=== PATIENT | male | born 1950 | race Caucasian/White ===

== ENCOUNTER 2024-07-21 11:25 | Inpatient (IN) ==
--- NOTE | 2024-07-21 11:33 | ED Triage Note ---
Date of Service July 21, 2024 Provider in Triage Author: Yolanda Strauss History of Present Illness This patient was briefly evaluated while in triage. An abbreviated physical exam was performed. This patient is a 74-year-old Male who presents to the ED for evaluation sent by [facility] for new onset afib with RVR found in the office today having chest pain and elevated BP readings at home for the last week Physical Exam GENERAL: NAD CARDIOVASCULAR: IRR, HR 80s RESPIRATORY: CTA Initial orders for labs and / or imaging were placed and patient was placed in the waiting area until a bed is available. Please see further documentation for the full ED course.
--- NOTE | 2024-07-21 12:32 | Electrocardiogram Report ---
Test Reason : Blood Pressure : */* mmHG Vent. Rate : 104 BPM Atrial Rate : * BPM P-R Int : * ms QRS Dur : 94 ms QT Int : 340 ms P-R-T Axes : * 46 209 degrees QTcB Int : 447 ms Atrial fibrillation with rapid ventricular response Nonspecific T wave abnormality Abnormal ECG No previous ECGs available Confirmed by Kelvin Glass ([id number]) on 07/21/2024 12:31:37 PM Referred By: Confirmed By: Kelvin Glass
[2024-07-21 12:59] LABS: Basophils # (auto) 0.03 K/uL (0.00-0.20); Basophils % (auto) 0.5 %; Eosinophils % (auto) 1.5 %; Hematocrit (blood only) 45.7 % (42.0-52.0); Hemoglobin 15.7 g/dl (14.0-18.0); Immature Granulocytes # (auto) 0.01 K/uL (0.01-0.20); Immature Granulocytes % (auto) 0.2 %; Lymphocytes # (auto) 2.51 K/uL (1.20-3.40); Lymphocytes % (auto) 38.5 %; Mean Corpuscular Hemoglobin 29.8 pg (25.0-34.0); Mean Corpuscular Hgb Conc 34.4 g/dL (32.0-36.0); Mean Corpuscular Volume 86.9 fL (80.0-100.0); Mean Platelet Volume 11.3 fL (9.4-12.4); Monocytes # (auto) 0.72 K/uL (0.11-0.59); Neutrophils # (auto) 3.15 K/uL (1.40-6.50); Neutrophils % (auto) 48.3 %; Platelet Count 130 K/uL (130-400); RDW Coefficient of Variation 12.6 % (11.5-14.5); Red Blood Count 5.26 M/uL (4.70-6.10); White Blood Count 6.52 K/ul (4.8-10.8)
--- NOTE | 2024-07-21 13:10 | XRay Report ---
XR chest 1V not portable CLINICAL HISTORY: Atrial fibrillation. COMPARISON STUDY: Chest radiograph May 15, 2007. FINDINGS: There is no pneumothorax or pleural effusion. Lung volumes are mildly diminished. Mild righ t basilar opacity favors atelectasis. There is no consolidation. Moderate cardiomegaly is noted. Ther e is no for pulmonary edema. IMPRESSION: No acute cardiopulmonary findings. ACT 112: Negative or not required by law. Electronically signed by: Mateus Middleton M.D. 07/21/2024 1:07 PM
[2024-07-21 13:19] LABS: Albumin Globulin Ratio 1.6 (0.9-2); Albumin Level 4.1 gm/dl (3.4-5.0); BUN Creatinine Ratio 22.3 (10-20); Bilirubin,Total 0.3 mg/dl (0.2-1.0); Calcium 8.9 mg/dl (8.6-10.3); Creatinine Clr Calc Pharmacy 77.7 ml/min; Globulin 2.6 gm/dl (2.5-4.0); Total Protein 6.7 gm/dl (6.0-8.3)
[2024-07-21 13:20] LABS: Partial Thromboplastin Ratio 0.9; Partial Thromboplastin Time 25 Seconds (21-31)
[2024-07-21 13:25] LABS: Troponin I High Sensitivity 12.5 pg/ml (0-20)
[2024-07-21 13:34] LABS: Thyroid Stimulating Hormone 1.441 uIu/ml (0.300-4.500)
[2024-07-21] MEDS: OPTIRAY 320 125ml IV ONE (14:26)
--- NOTE | 2024-07-21 14:59 | CT Scan Report ---
CT angio chest PE protocol CLINICAL HISTORY: ro pe TECHNIQUE: Multidetector row helical CT of the chest was performed with angiographic protocol. Gates l and sagittal reformations were obtained. Coronal and sagittal MIPS were obtained from the axial [place] a set and were submitted for review. Automated dose lowering techniques and/or adjustment according to patient size were utilized for this exam. CT DOSE: 911.67 mGy.cm Comparison: None available at the time of this dictation. FINDINGS: Lungs and pleura: Atelectasis versus scarring is seen in the dependent portions of the lungs. Heart and pericardium: Heart size is normal. No pericardial effusion. Vessels: No evidence of pulmonary embolism. Mediastinum and cy: Unremarkable. Chest wall and lower neck: Unremarkable. Abdomen: Hepatic steatosis is noted. Bones: Mild degenerative changes are seen. IMPRESSION: No acute abnormality and in particular no evidence of pulmonary embolus. ACT 112: Negative or not required by law. Electronically signed by: Jan Raphael M.D. 07/21/2024 2:57 PM
[2024-07-21] MEDS: ASPIRIN 81 MG CHEW PO STA (15:24)
--- NOTE | 2024-07-21 15:31 | History & Physical Report ---
Date of Service July 21, 2024 Assessment & Plan (1) New onset atrial fibrillation: Plan: This is a 74 y/o male with CHERYL on CPAP and hx of BPH who was sent to the ED today by his PCP for new onset atrial fibrillation with RVR in the office. In the ED, pt was found to be in atrial fibrillation with rates in the 90s to low 100s. Initial troponin negative, TSH normal. CTA chest negative for PE. Pt and his deny that he has ever been diagnosed with atrial fibrillation or other heart issues previously. He had a negative stress ECHO in January 2016 with LVEF at that time being 55-59%. He was referred for admission for further work-up and management of newly diagnosed afib. - Admit to PCU - Start Lopressor 12.5 mg po BID - Check ECHO - Consult cardiology for additional recommendations - Start daily aspirin ([id number] score was 1 - will defer decision re: anticoagulation to cardiology but will hold on heparin for now) - Labs in the AM - CBC, BMP, Mg, lipid panel - Trend troponin in view of episodes of chest pain as outpatient - EKG in the AM (2) CHERYL on CPAP: Plan: Chronic, stable CPAP at HS ordered with home settings (3) BPH w urinary obs/LUTS: Plan: Chronic, stable Continue outpatient regimen Plan Pt seen and reviewed with collaborating physician, Dr. Hanson. Plan of care discussed and as outlined above. Code status: full code DVT prophylaxis: Lovenox Alaina Chacon PA-C Addendum: Spoke with cardiology. Will start heparin gtt. Change metoprolol tartrate to 25 mg Q6 hrs with holds. Alaina Chacon PA-C History of Present Illness Chief Complaint: chest pain, elevated BP Primary Care Provider: Alok Guzman DO This is a 74 y/o male with CHERYL on CPAP and hx of BPH who was sent to the ED today by his PCP for new onset atrial fibrillation. Pt's assists with the history. Four nights ago, pt woke up at 2 am and then again at 5 am with chest pain. At 5 am, he woke up his who checked his BP and found it to be elevated with systolic in the 150s, his pulse was also noted to be "high." Pt's takes atenolol so she gave the patient once of her pills and rechecked his BP two hours later but it was the same so she gave him another 1/2 tablet of atenolol. When she rechecked his BP again around noon that day, she reports that it had improved and pt was feeling better. The next night, he had similar symptoms, and she again gave him atenolol x 2 doses with improvement in his symptoms. At this point, she made pt an appointment to be seen at his PCP's office, which was today. When he was seen today, he had an EKG performed, which showed new onset of atrial fibrillation with rapid ventricular response so they referred the patient to the ED for further evaluation. Pt is currently asymptomatic. He denies similar episodes of chest pain before four nights ago. He denies palpitations, syncope, lightheadedness. He has chronic intermittent mild pedal edema that seems to fluctuate depending on time of day and when he's on his feet. He is compliant with his CPAP, using it nightly. He denies recent illness. Allergies Allergy/AdvReac Type Severity Reaction Status Date / Time No Known Allergies Allergy Mild Verified 02/06/16 06:31 Home Medications Medication Instructions Recorded Confirmed Type multivitamin (Daily Multi-Vitamin 1 tab PO DAILY 07/24/23 07/21/24 History tablet) tamsulosin 0.4 mg capsule 0.4 mg PO HS 07/24/23 07/21/24 History finasteride 5 mg tablet 5 mg PO DAILY #30 tabs 08/27/23 07/21/24 Rx Past Med/Surg History Problem List (Updated 07/21/24 @ 16:24 by Basilia Chacon PA-C) New onset atrial fibrillation CHERYL on CPAP Medical History History of vitreous hemorrhage History of nonmelanoma skin cancer BPH w urinary obs/LUTS Surgical History History of surgical amputation of finger History of cataract surgery Family History Father Cancer Social History Smoking Status: Never smoker Hx Alcohol Use: No Hx Substance Use: No Preferred Language: [place] Communication Ability: Effective Inter Com Installer Required: No Beliefs That Will Affect Care: Pent[employer]al Current Living Situation: Spouse Other Information That Helps Us Care for You: No Feels Safe at Home: Yes Safety Concerns: Feels Safe At This Time Assistive Devices: CPAP Review of Systems Review of Systems: All systems reviewed & are unremarkable except as noted in Subjective Physical Exam Physical Exam: General: awake, alert, NAD HEENT: no scleral icterus, moist oral mucosa Neck: supple, trachea midline Heart: irregularly irregular with rate in the 90s Lungs: CTA bilaterally on the anterior Abdomen: soft, obese, NT, +BS Extremities: no pitting edema, distal pulses intact and equal Skin: warm, dry, no jaundice Neurologic: Ox3, no confusion or dysarthria, moving all extremities, no focal deficits Results & Data Results & Data Vital Signs (Past 12 Hours) Vital Signs Temp Pulse Pulse Resp BP BP Pulse Ox 07/21/24 14:19 92 H 16 141/94 H 96 07/21/24 13:14 105 H 07/21/24 13:12 90 13 152/105 H 96 07/21/24 11:31 36.5 C 89 18 158/101 H 94 O2 Del Method 07/21/24 14:19 07/21/24 13:14 07/21/24 13:12 07/21/24 11:31 Room Air Laboratory Results Lab Results 07/21/24 Range/Units 11:55 WBC 6.52 (4.8-10.8) K/ul RBC 5.26 (4.70-6.10) M/uL Hgb 15.7 (14.0-18.0) g/dl Hct 45.7 (42.0-52.0) % MCV 86.9 (80.0-100.0) fL MCH 29.8 (25.0-34.0) pg MCHC 34.4 (32.0-36.0) g/dL RDW Std Deviation 40.0 (36.4-46.3) fL RDW Coeff of Dwayne 12.6 (11.5-14.5) % Plt Count 130 (130-400) K/uL MPV 11.3 (9.4-12.4) fL Immature Gran % (Auto) 0.2 % Neut % (Auto) 48.3 % Lymph % (Auto) 38.5 % [place] % (Auto) 11.0 % Eos % (Auto) 1.5 % Baso % (Auto) 0.5 % Neut # (Auto) 3.15 (1.40-6.50) K/uL Lymph # (Auto) 2.51 (1.20-3.40) K/uL [place] # (Auto) 0.72 H (0.11-0.59) K/uL Eos # (Auto) 0.10 (0.00-0.50) K/uL Baso # (Auto) 0.03 (0.00-0.20) K/uL Immature Gran # (Auto) 0.01 (0.01-0.20) K/uL PT 11.0 (9.0-12.0) Seconds INR 1.0 (0.9-1.1) APTT 25 (21-31) Seconds PTT Ratio 0.9 Sodium 140 (136-145) mmol/L Potassium 4.0 (3.5-5.1) mmol/L Chloride 108 H (98-107) mmol/L Carbon Dioxide 26 (21-32) mmol/L Anion Gap 6 (3-11) BUN 23 (6-23) mg/dl Creatinine 1.03 (0.6-1.4) mg/dl Est Cr Clr Drug Dosing 77.7 ml/min eGFR 77.18 BUN/Creatinine Ratio 22.3 H (10-20) Glucose 129 H (70-99(Fasting)) mg/dl Calcium 8.9 (8.6-10.3) mg/dl Magnesium 2.0 (1.7-2.4) mg/dl Total Bilirubin 0.3 (0.2-1.0) mg/dl AST 18 (13-39) U/L ALT 30 (7-52) U/L Alkaline Phosphatase 66 (34-104) U/L Troponin I High Sens 12.5 (0-20) pg/ml Total Protein 6.7 (6.0-8.3) gm/dl Albumin 4.1 (3.4-5.0) gm/dl Globulin 2.6 (2.5-4.0) gm/dl Albumin/Globulin Ratio 1.6 (0.9-2) TSH 1.441 (0.300-4.500) uIu/ml Diagnostic Findings Chest X-Ray 07/21/24 11:33 XR chest 1V not portable CLINICAL HISTORY: Atrial fibrillation. COMPARISON STUDY: Chest radiograph May 15, 2007. FINDINGS: There is no pneumothorax or pleural effusion. Lung volumes are mildly diminished. Mild right basilar opacity favors atelectasis. There is no consolida tion. Moderate cardiomegaly is noted. There is no for pulmonary edema. IMPRESSION: No acute cardiopulmonary findings. ACT 112: Negative or not required by law. Electronically signed by: Matues Middleton M.D. 07/21/2024 1:07 PM Chest CTA 07/21/24 13:18 CT angio chest PE protocol CLINICAL HISTORY: ro pe TECHNIQUE: Multidetector row helical CT of the chest was performed with angiographic protocol. Coronal and sagittal reformations were obtained. Coronal and sagittal MIPS were obtained from the axial data set and were submitted for review. Automated dose lowering techniques and/or adjustment according to patient size were utilized for this exam. CT DOSE: 911.67 mGy.cm Comparison: None available at the time of this dictation. FINDINGS: Lungs and pleura: Atelectasis versus scarring is seen in the dependent portions of the lungs. Heart and pericardium: Heart size is normal. No pericardial effusion. Vessels: No evidence of pulmonary embolism. Mediastinum and cy: Unremarkable. Chest wall and lower neck: Unremarkable. Abdomen: Hepatic steatosis is noted. Bones: Mild degenerative changes are seen. IMPRESSION: No acute abnormality and in particular no evidence of pulmonary embolus. ACT 112: Negative or not required by law. Electronically signed by: Jan Raphael M.D. 07/21/2024 2:57 PM Medications Administered Discontinued Medications Aspirin (Aspirin 81 Mg Chew) 324 mg PO NOW STA Stop: 07/21/24 15:15 Last Admin: 07/21/24 15:24 Dose: 324 mg Documented By: KHAI Ioversol (Optiray 320 125ml) 117 ml IV ONCE ONE Stop: 07/21/24 14:26 Last Admin: 07/21/24 14:26 Dose: 117 ml Documented By: ENRIQUE Supervising Physician Co-Signing Physician Notes Attending Addendum: Case reviewed with the advanced practitioner. I have personally performed a history and physical examination on the patient. I have reviewed the advanced practitioner's documentation on the date of service referenced in note, and I agree with, and take responsibility for the plan of care. please refer to her notes for full details patient seen and examined, records reviewed by myself as well on exam, patient seen resting in bed, comfortable patient at bedside translating Patient reports no chest pain, shortness of breath, palpitations, dizziness, nausea no other symptoms VS noted and reviewed oriented x 3, not in distress, speaks in sentences with no effort nor accessory muscle use normal rate, irregularly irregular rhythm, no murmurs clear breath sounds bilaterally non distended, soft, nontender no bipedal edema, erythema, warmth no neuro deficits all labs, imaging noted and reviewed ASSESSMENT AND PLAN> NEW ONSET ATRIAL FIBRILLATION Echocardiogram ordered Metoprolol 25 mg 4 times daily Heparin drip Cardiology service consulted other diagnoses and plan of care as per advanced practitioner's notes Campos Hanson MD
--- OUTSIDE RECORDS SUMMARY | 2024-07-21 16:09 | External Medical Summary | Summary of Care ---
Author Name Unknown Organization [facility] Address [address] [place] [address] Phone [phone] Care Team Providers Care Estimator Paperboard Boxes Name Role Phone MoraimaAlok jefferson Kayla HEALY Primary Care Provider [phone] Reason for Visit * Reason Comments NEW PATIENT Lesion in right ear canal * Evaluate & Treat - Unlimited Visits (Within 10 days (routine)) - Authorized Specialty Diagnoses / Procedures Referred By Rory velez Referred To Contact Otolaryngology Diagnoses Skin neoplasm Radha Raymond PA-C [address] [place] [address] Referral ID Status Reason Start Date Expiration Date Visits Requested Visits Authorized [id number] Authorized Specialty Services Required 03/24/[phone] Encounter Details Date Type Department Care Team (Late st Contact Info) Description 04/27/2024 9:00 AM EDT Office Visit Otolaryngology [facility] [address] [place] [address] Heath Painting PA-C [address] [address] Lesion of external ear canal, right* Allergies No known active allergiesdocumented as of this encounter (statuses as of 04/30/2024) Medications Medication Sig Dispensed Refills Start Date End Date Status CPAP every night at bedtime. Active Tamsulosin HCl 0.4 MG Oral Capsule (Flomax)Indications:R ecurrent gross hematuria,BPH with obstruction/lower urinary tract symptoms,Bladder diverticulum Take 1 Capsule by mouth at bedtime. 30 Capsule 2 06/26/2023 Active Finasteride 5 MG Oral Tablet (Proscar) Take 1 Tablet by mouth in the morning. 09/23/2023 Active Multivitamin Adults 50+ Oral Tablet Take by mouth. Activ e Zinc Picolinate Powder Use as directed. 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 0 to 44.9 in adult 10/30/2021 07/11/2023 Overview: Per Obesity protocol historical Dizziness 01/31/2013 12/26/2017 Nausea with vomiting 01/31/2013 018 Acute suppurative otitis media 01/31/2013 12/26/2017 Skin carcinoma 04/13/2009 06/21/2020 ADVANCE DIRECTIVE INFORMATION 04/30/2008 12/26/2017 Overview: No, Advance Directive brochure offered , patient declined. INFORMATION 06/27/2007 06/21/2020 Overview: nonmelanoma skin cancer scalp: leiomyosarcoma FAMILY HX MALIG.NEOPLASM PROSTATE father 11/21/2005 12/26/2017 Palpitations 07/10/2001 12/26/2017 documented as of this encounter (statuses as of 04/30/2024) Immunizations Name Administration Dates Next Due DTWP HIB - Dipth/Tet/Whole Cell Pert/HIB 007 Pneumococcal Polysaccharide PPV23 (Pneumovax) 04/13/2009 Seasonal Influenza Vac., MDV , IM, 0.5 mL (Fluzone) 04/14/2009,06/22/2006,07/11/2001 TDAP (age 10 and older)(Boostrix) 02/04/2013 documented as of this encounter Social History Tobacco Use Types Packs/Day Years Used Date Smoking Tobacco: Never Smokeless Tobacco: Never Tobacco Cessation:Counseling Given: Not Answered Alcohol Use Standard Drinks/Week Comments No 0 (1 standard drink = 0.6 oz pur e alcohol) PHQ-2 Answer Date Recorded PHQ Adult Total Score 0 03/13/2024 Hunger Vital Sign Answer Date Recorded Within the past 12 months, y ou worried that your food would run out before you got the money to buy more. Never true 03/13/20 24 Within the past 12 months, t he food you bought just didn't last and you didn't have money to get more. Never true 03/13/2024 Childcare Answer Date Recorded Do you feel overwhelmed with taking care of a child, family member or friend? No 03/13/2024 Does your family need help f inding childcare? (Household - for ages 0-17 years) Not on file 03/13/2024 Clothing Answer Date Recorded Have you been unable to get clothing when it was really needed? No 03/13/2024 Is your family able to get c lothes or diapers when needed? (Household - for ages 0-17 years) Not on file 03/13/2024 Personal Safety Answer Date Recorded Do you feel unsafe or have concerns for your saf ety? No 03/13/2024 Do you have concerns for you r family's safety? (Household - for ages 0-17 years) Not on file 03/13/2024 Utilities Answer Date Recorded Do you have trouble paying y our heating, water, or electric bill? No 03/13/2024 Is your family able to pay t he heat, water, or electric bill? (Household - for ages 0-17 years) Not on file 03/13/2024 Does your family have access to good internet? (Household - for ages 0-17 years) Not on file 03/13/2024 Employment Status Answer Date Recorded Are you unemployed or without regular income? No 03/13/2024 Does the household have a re gular source of income? (Household - for ages 0-17 years) Not on file 03/13/2024 Social Connections Answer Date Recorded How often do you feel lonely or isolated from th ose around you? Never 03/13/2024 Financial Resource Strain Answer Date R ecorded Do you have any trouble payi ng for your medications, or do you think you might in the future? No 03/13/2024 Does your family have troubl e paying for medicine? (Household - for ages 0-17 years) Not on file 03/13/2024 Transportation Needs Answer Date Record ed Do you have trouble getting a ride to medical visits or work? (Adult - for ages 18 years and over) Not on file 03/13/2024 Does your family have a hard time getting a ride to doctors visits? (Household - for ages 0-17 years) Not on file 03/13/2024 Has lack of transportation k ept you from medical appointments, meetings, work, or from getting things needed for daily living? Check all that apply. No 03/13/2024 Do you (or your family) have trouble finding or paying for a ride (transportation)? (Household - for ages 0-17 years) Not on file 03/13/2024 Housing Stability Answer Date Recorded Do you currently live in a s helter or have no steady place to sleep at night? No 03/13/2024 Do you think you are at risk of becoming homeless? (Adult - for ages 18 years and over) Not on file 03/13/2024 Does your family worry about paying for your home or becoming homeless? (Household - for ages 0-17 years) Not on file 0 03/13/2024 Are you homeless or worried that you might be in the future? No 03/13/2024 Are you (or your family) peña eless or worried that you might be in the future? (Household - for ages 0-17 years) Not on file Food Insecurity Answer Date Recorded Do you need food for this week? No 03/13/2024 Are you able to get enough f ood for your family? (Household - for ages 0-17 years) Not on file 03/13/2024 Does your family need food t his week? (Household - for ages 0-17 years) Not on file 03/13/2024 Do you always have enough fo od for your family? (Household - for ages 0-17 years) Not on file 03/13/2024 Sex and Gender Information Value Date Recorded Sex Assigned at Male 03/20/2021 1:00 PM EDT Gender Identity Male 03/20/2021 1:00 PM EDT Sexual Orientation Straight 03/20/2021 1: 00 PM EDT Job Start Date Occupation Industry Not on file Not on file Not on file documented as of this encounter Last Filed Vital Signs Vital Sign Reading Time Taken Comments Blood Pressure - - Pulse - - Temperature 36.1 C (97 F) 04/27/2024 8:48 AM EDT Respiratory Rate - - Oxygen Saturation - - Inhaled Oxygen Concentration - - Weight 108.8 kg (239 lb 12.8 oz) 04/27/2024 8:48 AM EDT Height 171 cm (5' 7.32") 04/27/2024 8:48 AM EDT Body Mass Index 37.2 04/27/2024 8:48 AM EDT documented in this encounter Progress Notes * Heath Painting PA-C - 04/27/2024 8:03 AM EDT 04/27/2024 Nursing Notes: Jan Montoya CMA 04/27/24 0923 Addendum Chief Complaint Patient presents with NEW PATIENT Lesion in right ear canal Edmond Bear is a 74 year old male who presents today with a lesion in his right ear canal that he states has been present since 1989. He states that it is not painful but he can feel it. He denies any ear bleeding or discharge. He denies any hearing loss. Patient and/or parent/guardian given pre-operative instructions for a excision of a lesion of his right auditory canal. Provided preop folder containing instruction regarding the surgical center. Advised on Bleeding risk of Anticoagulant or NSAID use. Educated on postoperative care. HISTORY OF PRESENT ILLNESS This 74 year old YO male is seen at the request of Alok Guzman DO for the evaluation of right ear canal lesion He is here today with his spouse. Noticed within the last few months right external ear canal lesion. However, he is unsure when the symptoms started. There is no drainage, bleeding. No pain at baseline, however if using Qtip sometimes there is discomfort. No injury or trauma. He does not feel it has grown in size since he noticed it. He is concerned his hearing may be affected in the future from this. He denies bilateral otalgia, bilateral otorrhea, bilateral aural pressure, and bilateral tinnitis. Denies hx of otologic surgeries. Denies hx of recurrent OM Remaining ear review of symptoms reveals: Head trauma: denied Dizziness: vertigo denied Noise exposure: no occupational exposure and no firearm exposure Problem List Patient Active Problem List Diagnosis Obstructive sleep apnea of adult CPAP (continuous positive airway pressure) dependence Preauricular sinus Hx of nonmelanoma skin cancer Morbid obesity due to excess calories (HCC) Body mass index (BMI) of 40.0 to 44.9 in adult (HCC) Past Medical History: Diagnosis Date CPAP (continuous positive airway pressure) dependence 08/12/2015 INFORMATION 06/27/2007 nonmelanoma skin cancer scalp: leiomyosarcoma Obstructive sleep apnea of adult 08/12/2015 Vitreous hemorrhage (HCC) 02/06/2016 PPV/EL for NCV OD-Dr. Tena Past Surgical History: Procedure Laterality Date COLONOSCOPY, DIAGNOSTIC (RECTUM) 06/13/2020 adenomatous polyp, repeat 5 yrs / COLONOSCOPY FLEXIBLE PROXIMAL DIAGNOSTIC performed by Joi Murphy MD at ENDOSCOPY [facility] COLONOSCOPY, GI REFERRAL OP 12/11/2005 normal repeat 2015, Dr Nolan, [facility] PARTIAL REMOVAL OF EYE FLUID Right 02/06/2016 PPV/EL for NCVH OD-Dr. Tena REMOVE CATARACT, INSERT LENS PROSTH Right 01/07/2018 right EXTRACAPSULAR CATARACT REMOVAL WITH INTRAOCULAR LENS performed by Andres Ty MD at OR [facility] REMOVE CATARACT, INSERT LENS PROSTH Left 01/16/2018 left EXTRACAPSULAR CATARACT REMOVAL WITH INTRAOCULAR LENS performed by Andres Ty MD at OR [facility] TENDON SHEATH INCISION, FINGER 2018 TENDON SHEATH INCISION, FINGER cut off end of thumb Medications Current Outpatient Medications Medication Sig Dispense Refill CPAP every night at bedtime. Tamsulosin HCl 0.4 MG Oral Capsule (Flomax) Take 1 Capsule by mouth at bedtime. 30 Capsule 2 Finasteride 5 MG Oral Tablet (Proscar) Take 1 Tablet by mouth in the morning. Multivitamin Adults 50+ Oral Tablet Take by mouth. Zinc Picolinate Powder Use as directed. No current facility-administered medications for this visit. Allergies Review of patient's allergies indicates: No Known Allergies Family History Family History Problem Relation Name Age of Onset No Past Hx Mother Cancer Father prostate cancer at age 77 No Past Hx Sister No Past Hx Sister No Past Hx Sister No Past Hx Sister No Past Hx Sister No Past Hx Brother No Past Hx Daughter No Past Hx Daughter No Past Hx Daughter No Past Hx Son No Past Hx Son No Past Hx Son Social History Social History Tobacco Use Smoking status: Never Smokeless tobacco: Never Substance Use Topics Alcohol use: No Vaping/E-Cigarette Use Vaping/E-Cigarette Use Never User Vaping/E-Cigarette Substances Vaping/E-Cigarette Devices REVIEW OF SYMPTOMS: Negative for constitutional, eyes, cardiac, pulmonary, hepatic, renal, digestive, hematologic, epileptic, syncopal, musculo-skeletal, mental health, integumentary, hypertensive, lipid, arthritic, diabetic, thyroid, or neurologic disorders (except as listed in the PMH and Problem List). PHYSICAL EXAMINATION: Vital Signs: Filed Vitals: 04/27/24 0848 Temp: 36.1 C (97 F) TempSrc: Tympanic Weight: 108.8 kg (239 lb 12.8 oz) Height: 1.71 m (5' 7.32") General: this is a healthy appearing male who appears his stated age. The patient is alert and appropriately verbally conversant without hoarseness. Face: The face was inspected and no cutaneous masses or lesions were visualized. There was no erythema or edema noted. Facial movement was symmetric without weakness. No skin lesions were detected. There was no sinus tenderness elicited. The parotid and submandibular glands were normal to palpation. Eyes: Examination of the eyes revealed no lesions. Pupils were equal, round, and reactive to light and accommodation. Extra-ocular muscle function was intact. No nystagmus was observed. Nose: Septum nonobstructing, turbinates normal, no masses, polyps, or mucopus. Oral Cavity: Examination of the oral cavity revealed no mass lesions nor infection. The palate was noted to be intact without evidence of clefting. The tongue exhibited normal mobility. Mucosa was moist without lesion. The lips were free of lesion. Gums were free of inflammation. Dentition: unremarkable Oropharynx: The oral pharynx was free of mass lesion or mucosal abnormality. The palate was noted to be without lesion. The uvula was normal appearing. The tonsils were unremarkable. Ears: Examination of the ears revealed that the auricles were normally formed with no lesions. The left external ear canal is within normal limits. The right external auditory canal just an entrance there is 3-4 mm flesh colored macule, no bleeding or trauma, non tender to palpation. The tympanic membranes were intact and freely mobile to pneumatoscopy without perforation or significant retraction pockets. Neck: Visualization and palpation of the neck revealed no mass lesions, no thyromegaly or thyroid masses. No skin lesions or inflammatory processes were detected. The cervical musculature was normal to palpation. Lymphatics (cervical): There were no palpable lymph nodes in the posterior triangle, submandibular triangle, jugulodigastric region, or central neck. Lungs: normal respiratory effort Heart: normal rate ASSESSMENT: 1. Lesion of external ear canal, right Plan: Discussed removal in OR vs. Observing-- pt would like to have this removed. Excision of R ear canal lesion planned for [facility] with Dr. Trammell Pt would like removal-- we discussed risks of bleeding, infection, scarring, re-growth. Pt verbalized understanding and agrees with plan. Questions/Concerns addressed. Heath Painting PA-C [facility] [place] [facility] [address] [place] [address] 04/27/2024 I spent a total of 30-39 minutes (exact time 31 mins) on the date of service in preparation, delivery, and documentation of the care provided to Edmond Bear excluding any time spent in the performance of separately billed services or time spent by another provider/QHP. The patient is being seen in follow up for the treatment of (H61.91) Lesion of external ear canal, right (primary encounter diagnosis) incident to the plan of care established by Dr. Puma Trammell. Type of Supervision: Shared-Does not meet incident-to STAFF NOTE I performed a history and physical examination of the patient, including specifically on history, ROS, on physical exam, and my impression and plan are found below I have discussed the patient's management with Heath Painting PA-C. Please refer to the physician catering assistant's note for the documented findings and plan of care. HPI: 74-year-old male with a right ear canal lesion. On exam Ears: There is a well-circumscribed pedunculated appearing lesion in the lateral EAC. Assessment: 74-year-old male with right EAC lesion. Plan: Suspect this is a benign verrucous lesion versus fibroma. That said would recommend excision to be certain. Discussed the risks including bleeding, infection. He expresses understanding signed informed consent. Puma Trammell DO, [facility] Data Control Clerk, Department of Otolaryngology-Head and Neck Surgery [place] 04/28/2024 12:24 PM documented in this encounter Nursing Notes * Jan Montoya CMA - 04/27/2024 8:47 AM EDT Chief Complaint Patient presents with NEW PATIENT Lesion in right ear canal Edmond Bear is a 74 year old male who presents today with a lesion in his right ear canal that he states has been present since 1989. He states that it is not painful but he can feel it. He denies any ear bleeding or discharge. He denies any hearing loss. Patient and/or parent/guardian given pre-operative instructions for a excision of a lesion of his right auditory canal. Provided preop folder containing instruction regarding the surgical center. Advised on Bleeding risk of Anticoagulant or NSAID use. Educated on postoperative care. documented in this encounter Miscellaneous Notes * Addendum Note - Amado Mayen PA-C - 04/30/2024 1:47 PM EDTAddended by: AMADO MAYEN on: 04/30/2024 01:47 PM Modules accepted: Orders documented in this encounter Plan of Treatment Upcoming Encounters Date Type Department Care Team (Late st Contact Info) Description 05/18/2024 11:00 AM EDT Office Visit Dermatology [facility] [place] [address] [place] [address] Param Nolasco MD [address] [place] [address] 05/19/2024 9:30 AM EDT Office Visit Urology, [facility] [address] [facility] [address] [place] [address] Rolan Gamboa MD [address] [place] [address] 07/03/2024 10:40 AM EST Office Visit Sleep Disorders Ctr [facility] [address] [facility] [address] [place] [phone] Laura Nunez, DO [address] [facility] [address] [address] 08/06/2024 11:30 AM EST Office Visit Otolaryngology [facility] [address] [facility] [address] [place] [address] Heath Painting PA-C [address] [place] [address] 10/09/2024 9:20 AM EDT Office Visit Family Practice [facility] [place] [address] [place] [address] Alok Guzman, DO [address] [place] [address] 03/17/2025 10:00 AM EDT Nurse Only Ancillary [facility] Marix[place] [address] [place] [address] Marixa Nurse Annual Wellness [facility] [address] [place] [address] Scheduled Procedures Name Priority Associated Diagnoses Date/Ti me EXCISION SOFT TISSUE LESION EXTERNAL AUDITORY Lesion of external ear canal, right COLONOSCOPY FLEXIBLE PROXIMA L DIAGNOSTIC Recall History of colon polyps Health Maintenance Due Date Last Done Comments Fecal Occult Blood Test 1997 Sigmoidoscopy 1997 Cologuard 01/07/2021 01/07/2018 Influenza Vaccine (FLU shot) (#1) 2024 04/14/2009, 06/22/2006, 07/11/2001 DTap/Tdap Vaccines (3 - Td or Tdap) 10/09/2024 02/04/2013, 03/20/2007 Postponed from 02/04/2023 (Not Indicated) Adult Wellness Visit 03/13/2025 03/13/2024, 12/21/2022, 03/21/2022, Additional history exists Depression Screening 03/13/2025 03/13/2024, 12/16/2014 (Discussed) Colonoscopy 06/13/2025 06/13/2020, 05/23, 12/11/2005 Colorectal Cancer Screening 06/13/2025 Lipid Panel 03/09/2027 03/09/2022, 02/20, 12/17/2014, Additional history exists Pneumococcal Vaccine: 65+ Years Discontinued 04/13/2009 RETIRED - COLONOSCOPY-EVERY 5 YRS AGES 18-100 Discontinued 06/13/2020, 06/13/2020, 12/11/2005 COVID-19 Vaccine Discontinued HPV (Gardasil) Vaccine Aged Out No lo nger eligible based on patient's age to complete this topic Hepatitis B Vaccine Aged Out No longe r eligible based on patient's age to complete this topic MENINGOCOCCAL (MENACTRA/MENVEO) Aged Out No longer eligible based on patient's age to complete this topic Zoster Vaccines Discontinued documented as of this encounter Medical Devices Implanted Type Area Collections Agent Device Identifier Shelf Expiration Date Model / Serial / Lot Lens Intraoc 22.5 - [id number] - [id number] Implanted:Qty: 1 on 01/07/2018 by Andres Ty MD at [facility] Right: Eye [employer] 08/21/2022 [id number] / [id number] / [id number] Lens Intraoc 22.5 - [id number] - [id number] Implanted:Qty: 1 on 01/16/2018 by Andres Ty MD at OR [facility] Left: Eye [employer] 06/20/2022 [id number] / [id number] / [id number] documented as of this encounter Visit Diagnoses Diagnosis Lesion of external ear canal, right- Primary documented in this encounter Advance Directives * Full Code (Latest Code Status on File) Date Activated Date Inactivated Comments 01/16/2018 11:43 AM 01/16/2018 6:14 PM This order reflects the patients wishes and were consensually agreed upon. * Full Code Date Activated Date Inactivated Comments 01/07/2018 11:40 AM 01/07/2018 5:31 PM This order reflects the patients wishes and were consensually agreed upon. Care Teams Estimator Paperboard Boxes Relationship Specialty Start Date End Date Alok Guzman DO [address] [place] [address] PCP - General Family Medicine 10/09/22 documented as of this encounter
--- OUTSIDE RECORDS SUMMARY | 2024-07-21 16:09 | External Medical Summary | Summary of Care ---
Author Name Unknown Organization [facility] Address [address] [place] [address] Phone [phone] Care Team Providers Care Sack Department Supervisor Name Role Phone Alok Guzmna DO Primary Care Provider [phone] Reason for Visit * Auth/Cert Specialty Diagnoses / Procedures Referred By Contac t Referred To Contact Diagnoses Lesion of external ear canal, right Lesion of external ear canal, right [H61.91] Procedures REMOVE EAR CANAL LESION(S) EAR & THROAT EXAM, GEN'L ANESTHESIA EXCISION SOFT TISSUE LESION EXTERNAL AUDITORY OTOLARYNGOLOGIC EXAMINATION UNDER GENERAL ANESTHESIA Puma Trammell DO [address] [place] [address] Phone: tel: fax: OR [facility], Operating Room [facility] [address] [place] [address] Phone: tel: Referral ID Status Reason Start Date Expiration Date Visits Re quested Visits Authorized [id number] Encounter Details Date Type Department Care Team (Latest Contact Info) Description 07/09/2024 11:21 AM EST - 07/09/2024 1:40 PM EST Hospital Encounter [facility] Operating [facility] [address] [place] [address] Puma Trammell DO [address] [place] [address] Discharge Disposition: Home - Self Care Allergies No known active allergiesdocumented as of this encounter (statuses as of 07/10/2024) Medications CPAP every night at bedtime. Active Multivitamin Adults 50+ Oral Tablet Take by mouth. Active Zinc Picolinate Powder Use as directed. Active Finasteride 5 MG Oral Tablet (Proscar) Take 1 Tablet by mouth in the morning. 90 Tablet 3 05/19/2024 5:54 PM EDT 4 Active Tamsulosin HCl 0.4 MG Oral Capsule (Flomax)Indicatio ns:BPH with obstruction/lower urinary tract symptoms,Recurren t gross hematuria,Bladder diverticulum Take 1 Capsule by mouth at bedtime. 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 0 to 44.9 in adult 10/30/2021 07/11/2023 Overview (07/11/2023): Per Obesity protocol historical Dizziness 01/31/2013 12/26/2017 Nausea with vomiting 01/31/2013 018 Acute suppurative otitis media 01/31/2013 12/26/2017 Skin carcinoma 04/13/2009 06/21/2020 ADVANCE DIRECTIVE INFORMATION 04/30/2008 12/26/2017 Overview (04/30/2008): No, Advance Directive brochure offered , patient declined. INFORMATION 06/27/2007 06/21/2020 Overview (12/16/2014): nonmelanoma skin cancer scalp: leiomyosarcoma FAMILY HX MALIG.NEOPLASM PROSTATE father 11/21/2005 12/26/2017 Palpitations 07/10/2001 12/26/2017 documented as of this encounter (statuses as of 07/10/2024) Immunizations Name Administration Dates Next Due DTWP HIB - Dipth/Tet/Whole Cell Pert/HIB 007 Pneumococcal Polysaccharide PPV23 (Pneumovax) Seasonal Influenza Vac., MDV, IM, 0.5 mL (Fluzon e) 04/14/2009,06/22/2006 TDAP (age 10 and older)(Boostrix) 02/04/2013 documented as of this encounter Social History Tobacco Use Types Packs/Day Years Used Date Smoking Tobacco: Never Smokeless Tobacco: Never Alcohol Use Standard Drinks/Week Comments No 0 [...] 03/13/2024 Does the household have a re lar source of income? 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 Not on file Not on file documented as of this encounter Last Filed Vital Signs Vital Sign Reading Time Taken Comments Blood Pressure 142/89 07/09/2024 1:30 PM EST Pulse 62 07/09/2024 1:30 PM EST Temperature 36.2 C (97.2 F) 07/09/2024 12:[address] Respiratory Rate 16 07/09/2024 1:30 PM EST Oxygen Saturation 94% 07/09/2024 1:30 PM EST Inhaled Oxygen Concentration - - Weight 108.4 kg (239 lb) 07/09/2024 11:35 AM EST Height 171 cm (5' 7.32") 07/09/2024 11:35 AM EST Body Mass Index 37.07 07/09/2024 11:35 AM EST documented in this encounter Discharge Instructions * Discharge Instr - AVS* Puma Trammell, - 07/09/2024 11:58 AM EST Discharge Date: 07/09/2024 You may call Doctor Jp of the department of Otolaryngology at [phone] during business hours for any questions or test results or for after-hours emergencies The information below provides you with the instructions and the list of medications you need to betaking following discharge from the hospital. If you have any questions, please ask before leaving.Please carry this letter with you when you see your doctor in the clinic. If you have questions, you can reach us at the numbers above. Advance Directive Documented: Advance Directive Does the Patient have an Advance Directive? Not Addressed Special Instructions: Use ciprodex drops ( 4 drops to the right ear twice daily for 5 days) documented in this encounter Progress Notes * Puma Trammell DO - 07/09/2024 12:49 PM EST [facility] ENDOSCOPY [address] [address] OUTPATIENT SURGERY DISCHARGE SUMMARY NOTE Name: Edmond Bear Location: OR [facility]/OR Date: 07/09/2024 Time: 12:50 PM Surgery Date: 07/09/2024 Procedure: EXCISION SOFT TISSUE LESION EXTERNAL AUDITORY, OTOLARYNGOLOGIC EXAMINATION UNDER GENERALANESTHESIA Right Right Surgeon: Puma Trammell DO Discharge Diagnosis: ear lesion After examination of this patient, I have determined he is ready for discharge to home when the patient meets criteria. Discharge instructions were given to the patient. documented in this encounter H&P Notes * Puma Trammell DO - 07/09/2024 11:56 AM EST HISTORY & PHYSICAL - Otolaryngology - Head & Neck Surgery Service [address] [address] History and Physical : Name: Edmond Bear Location: OR [facility]/OR Date: 07/09/2024 Time: 11:56 AM CHIEF COMPLAINT: right ear lesion HISTORY OF PRESENT ILLNESS: The patient presents today for scheduled surgery. He denies any changes to health since last clinicvisit. Denies recent illness, or use of ASA, NSAID's, or any other Anticoagulants. MEDICAL HISTORY: Patient Active Problem List Diagnosis Obstructive sleep apnea of adult CPAP (continuous positive airway pressure) dependence Preauricular sinus Hx of nonmelanoma skin cancer Morbid obesity due to excess calories (HCC) Body mass index (BMI) of 40.0 to 44.9 in adult (HCC) Lesion of external ear canal, right Past Medical History: Diagnosis Date CPAP (continuous positive airway pressure) dependence 08/12/2015 INFORMATION 06/27/2007 nonmelanoma skin cancer scalp: leiomyosarcoma Obstructive sleep apnea of adult 08/12/2015 Vitreous hemorrhage (HCC) 02/06/2016 PPV/EL for [facility] OD-Dr. Tena Past Surgical History: Procedure Laterality Date COLONOSCOPY, DIAGNOSTIC (RECTUM) 06/13/2020 adenomatous polyp, repeat 5 yrs / COLONOSCOPY FLEXIBLE PROXIMAL DIAGNOSTIC performed by Joi Murphy MD at ENDOSCOPY [facility] COLONOSCOPY, GI REFERRAL OP 12/11/2005 normal repeat 2015, Dr Nolan, [facility] PARTIAL REMOVAL OF EYE FLUID Right 02/06/2016 PPV/EL for [facility] OD-Dr. Tena REMOVE CATARACT, INSERT LENS PROSTH Right 01/07/2018 right EXTRACAPSULAR CATARACT REMOVAL WITH INTRAOCULAR LENS performed by Andres Ty MD at [facility] REMOVE CATARACT, INSERT LENS PROSTH Left 01/16/2018 left EXTRACAPSULAR CATARACT REMOVAL WITH INTRAOCULAR LENS performed by Andres Ty MD at OR [facility] TENDON SHEATH INCISION, FINGER 2018 TENDON SHEATH INCISION, FINGER cut off end of thumb Review of patient's allergies indicates: No Known Allergies Social History Tobacco Use Smoking status: Never Smokeless tobacco: Never Substance Use Topics Alcohol use: No Vaping/E-Cigarette Use Vaping/E-Cigarette Use Never User Vaping/E-Cigarette Substances Vaping/E-Cigarette Devices Family History Problem Relation Name Age of [...] Past Hx Son No Past Hx Son REVIEW OF SYSTEMS: Negative for constitutional, eyes, cardiac, pulmonary, hepatic, renal, digestive, hematologic, epileptic, syncopal, musculo-skeletal, mental health, integumentary, hypertensive, lipid, arthritic, diabetic, thyroid or neurologic disorders (except as listed in the PMH and Problem List). PHYSICAL EXAM: Vital Signs: BP: 161 mmHg/92 mmHg (07/09/24 1135) Pulse: 55 (07/09/24 1135) Resp: 18 (07/09/24 1135) Temp: 36.28 C (07/09/24 1135) Temp Summary: Temp Min: 36.3 C (97.3 F) Max: 36.3 C (97.3 F) SpO2: 95 % (07/09/24 1135) O2 flow rate: Supplemental O2 Delivery: Room Air, None (07/09/24 1135) Ears: lesion of right EAC Lungs: The lungs were auscultated and breath sounds were clear bilaterally. Heart: Ausculation of the heart revealed a regular rate and rhythm without murmur. PLAN: Proceed with surgery documented in this encounter Nursing Notes * Henny Wright RN - 07/09/2024 1:40 PM EST Vs stable. Denies pain or nausea and tolerating PO intake. Verbalized understanding of all discharge directions. Patient stable for discharge to home. 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 * Henny Wright RN - 07/09/2024 1:13 PM EST Pt awake and alert, denies pain or nausea. Pt with no drainage noted to right ear. Pt tolerates PO fluids. * Henny Wright RN - 07/09/2024 12:46 PM EST Pt received from OR, report received from SAT ACT INSTRUCTOR and VS reviewed. Pt arousable to name, no c/o pain or nausea. No drainage noted from right ear. * Veronica Guzman RN - 07/09/2024 11:32 AM EST Surgical consent verified with patient. Patient agrees with listed procedure and verified signature. documented in this encounter OR Notes * OR Surgeon - Puma Trammell DO - 07/09/2024 12:40 PM EST OPERATIVE RECORD [facility], a department of [facility], Jannet SHOOK Edmond Bear MR # [id number] OUTPATIENT LOCATION: (Operating Room 3) SERVICE: Otolaryngology - Head & Neck Surgery - Facial Plastic Surgery DATE OF PROCEDURE: 07/09/2024 12:40 PM PRE-OP DIAGNOSIS: Right ear canal lesion POST-OP DIAGNOSIS: Same PROCEDURE: Excision of right ear canal lesion SURGEON: Puma Trammell DO, FACS ASSISTANTS: none ANESTHESIA: General LMA anesthesia OPERATIVE FINDINGS: see below DRAINS and/or PACKS: None ESTIMATED BLOOD LOSS: 1 ML FLUIDS: 700mL URINE: 0mL SPECIMEN(s) OBTAINED and DISPOSITION: right ear canal lesion to Surgical Pathology INDICATIONS & HISTORY: 74 yo male with right ear canal lesion DESCRIPTION OF OPERATION: A timeout was held and the patient was identified and the procedure verified. Attention was directed to the ears. Microscopic examination was done on the right ear and revealed a lesion of the cartilaginous ear canal. The area was injected with 1% lidocaine with 1:100,000 epinephrine. Then using a round knife the lesion was removed. Hemostasis was assured with bovie cautery on 10 coagulation. DISPOSITION: The patient was transferred to the In & Out Surgery. APPARENT INTRAOPERATIVE COMPLICATIONS: none PATIENT CONDITION: stable ATTESTATION: I performed the procedure Puma Trammell DO, FACS [facility] Telecom Assistant, Department of Otolaryngology-Head and Neck Surgery [facility], [place] 07/09/2024 12:44 PM cc: Professional Reimbursement and Compliance documented in this encounter Plan of Treatment Upcoming Encounters Date Type Department Care Team (Late st Contact Info) Description 08/06/2024 11:30 AM EST [facility] [place] [address] Heath Painting PA-C [address] [place] [address] 10/09/2024 9:20 AM EDT Office Visit Family Practice [facility] [place] [address] [facility] [place] [phone] Alok Guzman DO [address] [facility] [place] [phone] 12/23/2024 8:15 AM EDT Office Visit MOHS Surgery [facility] [place] [address] [facility] [address] [place] [address] Mirian Barragan MD [address] [facility] [place] [id number] 03/17/2025 10:00 AM EDT Nurse Only Ancillary [facility] [place] [address] [facility] [place] [address] Park, Nurse Annual Wellness [place] [address] [address] [place] [phone] 05/31/2025 8:30 AM EST Office Visit Dermatology [facility] [place] [address] [facility] [place] [phone] Param Nolasco MD [address] [facility] [place] [phone] Pending Results Name Type Priority Associated Diagnoses Date /Time SURGICAL PATHOLOGY Pathology Routine Lesion of external ear canal, right 07/09/2024 12:33 PM EST Scheduled Orders Name Type Priority Associated Diagnoses Orde r Schedule SURGICAL PATHOLOGY Pathology Routine Lesion of external ear canal, right Release Upon Ordering for 1 Occurrences starting 07/09/2024, 1 completed Scheduled Procedures Name Priority Associated Diagnoses Date/Ti me COLONOSCOPY FLEXIBLE PROXIMAL DIAGNOSTIC Recall History of colon polyps Health [...] this encounter Medical Devices Implanted Type Area Cupola Liner Device Identifier Shelf Expiration Date Model / Serial / Lot Lens Intraoc 22.5 - [id number] - [id number] Implanted:Qty: 1 on 01/07/2018 by Andres Ty MD at OR [facility] Right: Eye [employer] 08/21/2022 [id number] / [id number] / [id number] Lens Intraoc 22.5 - [id number] - [id number] Implanted:Qty: 1 on 01/16/2018 by Andres Ty MD at [facility] Left: Eye [employer]OMB 06/20/2022 [id number] / [id number] / [id number] documented as of this encounter Visit Diagnoses Diagnosis Lesion of external ear canal, right- Primary documented in this encounter Administered Medications Inactive Administered Medications - up to 3 most recent administrations Medication Order MAR Action Action Date Dose Rate Site dexAMETHasone Sodium Phosphate (Decadron) 4 MG/ML inj 4 mg 4 mg, IV Push, PRN Nausea, Starting on Joann 07/09/24 at 1256, Until Joann 07/09/24 at 1750, For 1 dose, PROTECT FROM LIGHT, PACU fentaNYL (PF) inj 25 mcg 25 mcg, IV Push, PRN Pain, Severe, Starting on Joann 07/09/24 at 1256, Until Joann 07/09/24 at 1750, For 6 doses, When given IV Push its recommended that the dose be given over 3 to 5 minutes., PACU Isolyte-S pH 7.4 infusion Intravenous, at 100 mL/hr, Plasma-LYTE 148, isolyte-S, and isolyte-S pH 7.4 are considered equivalent - including for MAR barcode scanning., CONTINUOUS, Starting on Joann 07/09/24 at 1230, Until Joann 07/09/24 at 1750, Pre-Op ondansetron (Zofran) inj 4 mg 4 mg, IV Push, PRN Nausea, Starting on Joann 07/09/24 at 1256, Until Joann 07/09/24 at 1750, For 1 dose, PACU oxygen GAS Inhalation, OXYGEN, First dose on Joann 07/09/24 at 1600, Until Discontinued, Device/Managed by: Low Flow Device, Goal SPO2 (%): 91-95, Starting Device: Simple Mask, Initial Flow Rate (LPM): 6, Lowest Support: Nasal Cannula: Flow 0-6 LPM. Titrate up/down by 1 LPM., Titration Interval: Q2 minutes and as needed., Notify Provider: For sudden DECREASE in resting SPO2 to less than 85% and when escalating delivery device., PACU I - Oxygen for saturation below 95% as indicated per anesthesia. PACU I - Discontinue oxygen when patient is responsive and oxygen saturation is maintained above 94% on room air or same as preanesthetic level. documented in this encounter Active and Recently Administered Medications Times are shown in EST. Scheduled Medication Order 07/07/2024 07/08/2024 07/09/2024 oxygen GAS Inhalation, OXYGEN, First dose on Joann 07/09/24 at 1600, Until Discontinued, Device/Managed by: Low Flow Device, Goal SPO2 (%): 91-95, Starting Device: Simple Mask, Initial Flow Rate (LPM): 6, Lowest Support: Nasal Cannula: Flow 0-6 LPM. Titrate up/down by 1 LPM., Titration Interval: Q2 minutes and as needed., Notify Provider: For sudden DECREASE in resting SPO2 to less than 85% and when escalating delivery device., PACU I - Oxygen for saturation below 95% as indicated per anesthesia. PACU I - Discontinue oxygen when patient is responsive and oxygen saturation is maintained above 94% on room air or same as preanesthetic level. Continuous Medication Order 07/07/2024 07/08/2024 07/09/2024 Isolyte-S pH 7.4 infusion Intravenous, at 100 mL/hr, Plasma-LYTE 148, isolyte-S, and isolyte-S pH 7.4 are considered equivalent - including for MAR barcode scanning., CONTINUOUS, Starting on Joann 07/09/24 at 1230, Until Joann 07/09/24 at 1750, Pre-Op 1230 (Due)1240 (Anes Intra-Op Fluid - Provider: Sridhar Jenkins CRNA) PRN Medication Order 07/07/2024 07/08/2024 07/09/2024 Ciprofloxacin-dexAMETHasone (Cipro-Dex) OTIC DROPS (CANCELED) ONCE PRN INTRA PROCEDURE, Starting on Joann 07/09/24 at 1244, Until Joann 07/09/24 at 1244, Intra-Op 1244 (Given - Provid er: Puma Trammell, ) dexAMETHasone Sodium Phosphate (Decadron) 4 MG/ML inj 4 mg 4 mg, IV Push, PRN Nausea, Starting on Joann 07/09/24 at 1256, Until Joann 07/09/24 at 1750, For 1 dose, PROTECT FROM LIGHT, PACU fentaNYL (PF) inj 25 mcg 25 mcg, IV Push, PRN Pain, Severe, Starting on Joann 07/09/24 at 1256, Until Joann 07/09/24 at 1750, For 6 doses, When given IV Push its recommended that the dose be given over 3 to 5 minutes., PACU Lidocaine-EPINEPHrine 1 %-1:464427 inj (CANCELED) ONCE PRN INTRA PROCEDURE, Starting on Joann 07/09/24 at 1232, Until Joann 07/09/24 at 1239, Intra-Op 1232 (Given - Provid er: Puma Trammell, DO - Comment: right ear) ondansetron (Zofran) inj 4 mg 4 mg, IV Push, PRN Nausea, Starting on Joann 07/09/24 at 1256, Until Joann 07/09/24 at 1750, For 1 dose, PACU documented in this encounter Advance Directives * Full Code (Latest Code Status on File) Date Activated Date Inactivated Comments 01/16/2018 11:43 AM 01/16/2018 6:14 PM This order reflects the patients wishes and were consensually agreed upon. * Full Code Date Activated Date Inactivated Comments 01/07/2018 11:40 AM 01/07/2018 5:31 PM This order reflects the patients wishes and were consensually agreed upon. Care Teams Sack Department Supervisor Relationship Specialty Start Date End Date Alok Guzman DO [address] [place] [address] PCP - General Family Medicine 10/09/22 documented as of this encounter
--- OUTSIDE RECORDS SUMMARY | 2024-07-21 16:09 | External Medical Summary | Summary of Care ---
Author Name Unknown Organization [facility] Address [address] [facility] [place] [address] Phone [phone] Care Team Providers Care Finishing Supervisor Name Role Phone Alok Guzman DO Primary Care Provider [phone] Reason for Visit * Reason Onset Date Comments Test Results 07/20/2024 Encounter Details Date Type Department Care Team (Late st Contact Info) Description 07/20/2024 Telephone Otolaryngology [facility] [address] [place] [address] Puma Trammell DO [address] [place] [id number] Test Results Allergies No known active allergiesdocumented as of this encounter (statuses as of 07/20/2024) Medications CPAP every night at bedtime. Active Multivitamin Adults 50+ Oral Tablet Take by mouth. Active Zinc Picolinate Powder Use as directed. Active Finasteride 5 MG Oral Tablet (Proscar) Take 1 Tablet by mouth in the morning. 90 Tablet 3 05/19/2024 5:54 PM EDT Active Tamsulosin HCl 0.4 MG Oral Capsule (Flomax)Indicatio ns:BPH with obstruction/lower urinary tract symptoms,Recurren t gross hematuria,Bladder diverticulum Take 1 Capsule by mouth at bedtime. 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 * Telephone Encounter - Puma Trammell DO - 07/20/2024 9:56 AM EST Please let patient know that his lesion of the ear canal was benign. He will follow-up with Heath as scheduled for an ear check. Puma Trammell DO, [facility] Human Resources Director, Department of Otolaryngology-Head and Neck Surgery [facility], [place] 07/20/2024 9:56 AM documented in this encounter Plan of Treatment Upcoming Encounters Date Type Department Care Team (Late st Contact Info) Description 07/21/2024 9:20 AM EST Office Visit Family Practice [facility] [address] [place] [address] Blessing Montelongo MD [address] [place] [address] 08/06/2024 11:30 AM EST Office Visit Otolaryngology [facility] [address] [place] [address] Heath Painting PA-C [address] [place] [address] 10/09/2024 9:20 AM EDT Office Visit Family Practice [facility] [address] [facility] [place] [address] Alok Guzman DO [address] [facility] [address] [place], [place] [address] 12/23/2024 8:15 AM EDT Office Visit MOHS Surgery [facility] [place] [address] [facility] [address] [place], [place] [address] Mirian Barragan MD [address] [facility] [address] [place], [place] [address] 03/17/2025 10:00 AM EDT Nurse Only Ancillary [facility] [place] [address] [facility] [address] [place], [place] [address] [place], Nurse Annual Wellness [facility] [address] [facility] [address] [place], [place] [address] 05/31/2025 8:30 AM EST Office Visit Dermatology [facility] [place] [address] [facility] [address] [place], [place] [address] Param Nolasco MD [address] [facility] [place] [address] Scheduled Procedures Name Priority Associated Diagnoses Date/Ti [...] 02/20, 12/17/2014, Additional history exists Pneumococcal Vaccine: 50+ Years Discontinued 04/13/2009 RETIRED - COLONOSCOPY-EVERY 5 [...] this encounter Medical Devices Implanted Type Area Neon Sign Installer Device Identifier Shelf Expiration Date Model / Serial / Lot Lens Intraoc 22.5 - [id number] - [id number] Implanted:Qty: 1 on 01/07/2018 by Andres Ty MD at OR [facility] Right: Eye [employer] 08/21/2022 [id number] / [id number] / [id number] Lens Intraoc 22.5 - [id number] - [id number] Implanted:Qty: 1 on 01/16/2018 by Andres Ty MD at OR [facility] Left: Eye [employer]CH [employer]OMB 06/20/2022 [id number] / [id number] / [id number] documented as of this encounter Advance Directives * Full Code (Latest Code Status on File) Date Activated Date Inactivated Comments 01/16/2018 11:43 AM 01/16/2018 6:14 PM This order reflects the patients wishes and were consensually agreed upon. * Full Code Date Activated Date Inactivated Comments 01/07/2018 11:40 AM 01/07/2018 5:31 PM This order reflects the patients wishes and were consensually agreed upon. Care Teams Finishing Supervisor Relationship Specialty Start Date End Date Alok Guzman DO [address] [place] [address], [place] [address] PCP - General Family Medicine 10/09/22 documented as of this encounter
--- OUTSIDE RECORDS SUMMARY | 2024-07-21 16:09 | External Medical Summary | Summary of Care ---
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 diverticulum Aislinn Thornton MD [address] [place] [address] Referral ID Status Reason Start Date Expiration Date Visits Requested Visits Authorized [id number] Authorized Specialty Services Required 06/26/2023 [id number] Encounter Details Date Type Department Care Team (Late st Contact Info) Description 05/19/2024 9:30 AM EDT Office Visit Urology, [facility] [address] [facility] [place] [address] Rolan Gamboa MD [address] [place] [address] BPH with obstruction/lower urinary tract symptoms*; Hematuria, gross; Recurrent gross hematuria; Bladder diverticulum Allergies No known active allergiesdocumented as of this encounter (statuses as of 05/19/2024) Medications Medication Sig Dispensed Refills Start Date End Date Status CPAP every night at bedtime. Active Multivitamin Adults 50+ Oral Tablet Take by mouth. Active Zinc Picolinate Powder Use as directed. Active Finasteride 5 MG Oral Tablet (Proscar) Take 1 Tablet by mouth in the morning. 90 Tablet 3 05/19/2024 Active Tamsulosin HCl 0.4 MG Oral Capsule (Flomax)Indication s:BPH with obstruction/lower urinary tract symptoms,Recurrent gross hematuria,Bladder diverticulum Take 1 Capsule by mouth at bedtime. 90 Capsule 3 05/19/2024 Active Tamsulosin HCl 0.4 MG Oral Capsule (Flomax)Indication s:Recurrent gross hematuria,BPH with obstruction/lower urinary tract symptoms,Bladder diverticulum Take 1 Capsule by mouth at bedtime. 30 Capsule 2 06/26/2023 05/19/2024 Discontinued (Refill) Finasteride 5 MG Oral Tablet (Proscar) Take 1 Tablet by mouth in the morning. 09/23/2023 05/19/2024 Discontinued (Refill) documented as of this encounter (statuses as of 05/19/2024) Active Problems Problem Noted Date Diagnosed Date [...] 08/12/2015 CPAP (continuous positive airway pressure) depen rafael 08/12/2015 documented as of this encounter (statuses as of 05/19/2024) Resolved Problems Problem Noted Date Diagnosed Date [...] nonmelanoma skin cancer scalp: leiomyosarcoma FAMILY HX GEOVANI.NEOPLASM PROSTATE father 11/21/2005 12/26/2017 Palpitations 07/10/2001 12/26/2017 documented as of this encounter (statuses as of 05/19/2024) Immunizations Name Administration Dates Next Due DTWP [...] on file documented as of this encounter Progress Notes * Rolan Gamboa MD - 05/19/2024 9:31 AM EDT [id number] PCP: NAUN GUZMAN [place], [place] [id number] Edmond Bear is a 74 year old male, who presents in referral for evaluation of gross hematuria. Patient is transferring his BPH care locally. Outside scanned notes are reviewed including office visit with Urology from November of 2023. Patient denies significant bother associated with the urination, simply wishes to transfer care. Hematuria: Presented to Urology April of 2024. CT scan done [facility] July 2023: No masses, sequelae of bladder outlet obstruction. BPH: Patient is being seen for BPH today. He has had the following symptoms: slow stream. Severity is mild. He has tried tamsulosin and finasteride. He has previously had office cystoscopy done by Dr. Bailon. Problem has been present for years. Problem is about the same. PSA Results: Lab Results Component Value Date/Time PSA - [facility] 2.88 07/24/2023 02:55 PM PSA - [facility] 1.64 06/10/2018 11:17 AM PSA - [facility] 1.20 12/17/2014 08:06 AM PSA - [facility] 1.18 04/13/2010 02:12 PM Creatinine Results: Lab Results Component Value Date/Time CREATININE - [facility] 1.1 07/24/2023 02:55 PM CREATININE - [facility] 1.3 (H) 09/13/2022 11:11 AM CREATININE - [facility] 1.0 03/09/2022 03:26 PM CREATININE - [facility] 1.1 03/19/2020 09:39 AM CREATININE - [facility] 1.3 (H) 10/19/2016 03:41 PM CREATININE - [facility] 1.1 12/17/2014 08:06 AM Current Outpatient Medications Medication Sig Dispense Refill Tamsulosin HCl 0.4 MG Oral Capsule (Flomax) Take 1 Capsule by mouth at bedtime. 30 Capsule 2 Finasteride 5 MG Oral Tablet (Proscar) Take 1 Tablet by mouth in the morning. Multivitamin Adults 50+ Oral Tablet Take by mouth. Zinc Picolinate Powder Use as directed. CPAP every night at bedtime. No current facility-administered medications for this visit. Review of patient's allergies indicates: No Known Allergies Social History: Social History Tobacco Use Smoking status: Never [...] Past Hx Son No Past Hx Son Past Surgical History: Procedure Laterality Date COLONOSCOPY, DIAGNOSTIC (RECTUM) 06/13/2020 adenomatous polyp, repeat 5 yrs / COLONOSCOPY FLEXIBLE PROXIMAL DIAGNOSTIC performed by Joi Murphy MD at ENDOSCOPY [facility] COLONOSCOPY, GI REFERRAL OP 12/11/2005 normal repeat 2015, Dr Nolan, [facility] PARTIAL REMOVAL OF EYE FLUID Right 02/06/2016 PPV/EL for [facility] OD-Dr. Tena REMOVE CATARACT, INSERT LENS PROSTH Right 01/07/2018 right EXTRACAPSULAR CATARACT REMOVAL WITH INTRAOCULAR LENS performed by Andres Ty MD at OR [facility] REMOVE CATARACT, INSERT LENS PROSTH Left 01/16/2018 left EXTRACAPSULAR CATARACT REMOVAL WITH INTRAOCULAR LENS performed by Andres Ty MD at OR [facility] TENDON SHEATH INCISION, FINGER 2018 TENDON SHEATH INCISION, FINGER cut off end of thumb Past Medical History: Diagnosis Date CPAP (continuous positive airway pressure) dependence 08/12/2015 INFORMATION 06/27/2007 nonmelanoma skin cancer scalp: leiomyosarcoma Obstructive sleep apnea of adult 08/12/2015 Vitreous hemorrhage (HCC) 02/06/2016 PPV/EL for [facility] OD-Dr. Tena Patient Active Problem List Diagnosis Obstructive sleep apnea of adult CPAP (continuous positive airway pressure) dependence Preauricular sinus Hx of nonmelanoma skin cancer Morbid obesity due to excess calories (HCC) Body mass index (BMI) of 40.0 to 44.9 in adult (HCC) Lesion of external ear canal, right Constitutional: (-) fever and (-) chills Pulmonary: (+) apnea Male : see HPI Neurology: (-) negative: no focal neurologic defect Psychiatry: (-) negative: no depression or anxiety Physical Exam Nursing note reviewed. Constitutional: General: He is not in acute distress. Appearance: Normal appearance. He is obese. He is not ill-appearing or toxic-appearing. HENT: Head: Normocephalic and atraumatic. Right Ear: External ear normal. Left Ear: External ear normal. Nose: Nose normal. Mouth/Throat: Mouth: Mucous membranes are moist. Eyes: Extraocular Movements: Extraocular movements intact. Cardiovascular: Pulses: Normal pulses. Pulmonary: Effort: Pulmonary effort is normal. No respiratory distress. Abdominal: Palpations: Abdomen is soft. Tenderness: There is no abdominal tenderness. Genitourinary: Comments: 50 gram prostate, smooth, no induration or nodules, no seminal vesicle abnormalities, normal rectal tone. Musculoskeletal: Cervical back: Normal range of motion and neck supple. Lymphadenopathy: Cervical: No cervical adenopathy. Skin: Coloration: Skin is not cyanotic or pale. Neurological: Mental Status: He is alert and oriented to person, place, and time. Motor: No weakness. Gait: Gait normal. Psychiatric: Attention and Perception: Attention normal. Mood and Affect: Mood and affect normal. Impression/Plan: 74-year-old male with stable BPH. Findings reviewed with the patient. Patient wishes to switch his prescriptions to mail order, [facility]. PSA order placed, can be done with next labs. Otherwise, seen the lack of patient's bother, will simply see back in a year's time. Contact us sooner with any other urologic complaints. Above content is personally reviewed. Patient vocalizes good understanding of thetreatment plan. Rolan Gamboa MD 9:31 AM 05/19/2024 documented in this encounter Nursing Notes * Shonna Cramer LPN - 05/19/2024 9:16 AM EDT New pt, transferring from [facility] [place], records printed. Patient presents alone. Nocturia x 2. Taking tamsulosin, finasteride documented in this encounter Plan of Treatment Upcoming Encounters Date Type Department Care Team (Latest Contact Info) Description 07/03/2024 10:40 AM EST [facility] [address] [place] [phone] Laura Nunez, [address] [place] [address] 07/09/2024 2:10 PM EST Hospital Encounter OR [facility], Operating Room [facility] [address] [place] [address] Puma Trammell, [address] [place] [address] 07/09/2024 2:10 PM EST - 07/09/2024 2:58 PM EST Surgery OR [facility], Operating Room [facility] [address] [place] [phone] Puma Trammell, DO [address] [place] [address] EXCISION SOFT TISSUE LESION EXTERNAL AUDITORY 08/06/2024 11:30 AM EST Office Visit Otolaryngology [facility] [address] [place] [address] Heath Painting PA-C [address] [place] [address] 10/09/2024 9:20 AM EDT Office Visit Family Practice [facility] [place] [address] [place] [address] Nuan Guzman, DO [address] [facility] [place] [address] 03/17/2025 10:00 AM EDT Nurse Only Ancillary [facility] Marixa [place] [address] [place] [address] Marixa, Nurse Annual Wellness [address] [place] [phone] 05/31/2025 8:30 AM EST Office Visit Dermatology [facility] [place] [address] [facility] [place] [address] Param Nolasco MD [address] [facility] [place] [phone] Scheduled Orders Name Type Priority Associated Diagnoses Orde r Schedule PSA Lab Routine BPH with obstruction/lower urinary tract symptoms Expected: 08/19/2024 (Approximate), Expires: 05/19/2025 Scheduled Procedures Name Priority Associated Diagnoses Date/Ti me EXCISION SOFT TISSUE LESION EXTERNAL AUDITORY Lesion of external ear canal, right 07/09/2024 2:10 PM EST OTOLARYNGOLOGIC EXAMINATION UNDER GENERAL ANESTHESIA Lesion of external ear canal, right 07/09/2024 2:10 PM EST COLONOSCOPY FLEXIBLE PROXIMA L DIAGNOSTIC Recall History [...] this encounter Medical Devices Implanted Type Area Farmworker Rice Device Identifier Shelf Expiration Date Model / Serial / Lot Lens Intraoc 22.5 - [id number] - [id number] Implanted:Qty: 1 on 01/07/2018 by Andres Ty MD at OR [facility] Right: Eye [employer] 08/21/2022 [id number] / [id number] / [id number] Lens Intraoc 22.5 - [id number] - [id number] Implanted:Qty: 1 on 01/16/2018 by Andres Ty MD at OR [facility] Left: Eye [employer]OM[employer] 06/20/2022 [id number] / [id number] / [id number] documented as of this encounter Visit Diagnoses Diagnosis Lesion of external ear canal, right- Primary BPH with obstruction/lower urinary tract symptoms- Primary Hypertrophy of prostate with urinary obstruction and other lower urinary tract symptoms (LUTS) Hematuria, gross Gross hematuria Recurrent gross hematuria Bladder diverticulum Diverticulum of bladder Lesion of external ear canal, right documented in this encounter Advance Directives * Full Code (Latest Code Status on File) Date Activated Date Inactivated Comments 01/16/2018 11:43 AM 01/16/2018 6:14 PM This order reflects the patients wishes and were consensually agreed upon. * Full Code Date Activated Date Inactivated Comments 01/07/2018 11:40 AM 01/07/2018 5:31 PM This order reflects the patients wishes and were consensually agreed upon. Care Teams Willow Machine Operator Relationship Specialty Start Date End Date Naun Guzman DO [address] [place] [address] PCP - General Family Medicine 10/09/22 documented as of this encounter
--- OUTSIDE RECORDS SUMMARY | 2024-07-21 16:09 | External Medical Summary | Summary of Care ---
Author Name Unknown Organization [facility] Address [address] [facility] [place] [address] Phone [phone] Care Team Providers Care Blow Pit Helper Name Role Phone Naun Guzman DO Primary Care Provider [phone] Reason for Visit * Reason Comments Follow Up Monitor for lesion o n R. Ear, hx of NMSC Encounter Details Date Type Department Care Team (Late st Contact Info) Description 05/18/2024 11:00 AM EDT Office Visit Dermatology [facility] [address] [facility] [place] [address] Param Nolasco MD [address] [facility] [place] [address] Skin neoplasm*; Actinic skin damage; Seborrheic keratoses; Hx of basal cell carcinoma; Scar; Actinic keratosis Allergies No known active allergiesdocumented as of this encounter (statuses as of 05/18/2024) Medications Medication Sig Dispensed Refills Start Date [...] as of this encounter (statuses as of 05/18/2024) Active Problems Problem Noted Date Diagnosed Date [...] as of this encounter (statuses as of 05/18/2024) Resolved Problems Problem Noted Date Diagnosed Date [...] as of this encounter (statuses as of 05/18/2024) Immunizations Name Administration Dates Next Due DTWP [...] as of this encounter Progress Notes * Param Nolasco MD - 05/18/2024 11:09 AM EDT SUBJECTIVE: Chief Complaint: Chief Complaint Patient presents with Follow Up Monitor for lesion on R. Ear, hx of NMSC HPI: Edmond Bear is a 74 year old male seen for lesion in right ear. Has seen ENT for this, scheduled for removal in OR in June. Pt with history of NMSC, pt denies any concerns today Explained to patient that lesion in right ear is being addressed by ENT. 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 Right upper back - 7mm brown/pink thin papule - ISK? R/o AMP Right elbow - dry gritty erythematous papule Scalp, left ear - Well-healed scar(s) at primary site(s) without evidence of recurrence Scattered on face, chest, back - diffuse mottled hypopigmented and hyperpigmented macules without significant irregularity. Associated telangiectasias At the trunk and upper extremities are several scattered robles/brown hyperkeratotic stuck on appearing waxy papules. ASSESSMENT/PLAN: Skin neoplasm(s) - Shave biopsy of the following lesion(s) A. Right upper back - 7mm brown/pink thin papule - ISK? R/o AMP Procedure - Tangential biopsy of skin Biopsy by shave was recommended for the lesion(s) noted above to establish and confirm diagnosis. The procedure, risks, benefits, alternatives and expected outcomes were discussed with the patient and consent was obtained. Time out called. Patient identified, procedure verified, site(s) identified and verified. Patient and staff present in agreement. Area prepped with alcohol and anesthetized using 0.5% lidocaine with epinephrine at 1:200,000 concentration. Biopsy of lesion(s) performed. 20% AlCl and bandaging applied. Specimen(s) sent to pathology. Patient instructed in routine post-op care. Actinic keratosis -The diagnosis and malignant potential of the lesion was explained. Treatment options were reviewedincluding cryotherapy, topical medications, and observation. All questions were addressed. Procedure - Cryotherapy (Premalignant Destruction) -The patient would like to proceed with cryosurgery;Cryosurgery explained to the patient, consent obtained, patient, site and procedure verified, and then cryotherapy was performed with Liquid Nitrogen via cryo spray unit to 1 lesions. Location noted in physical exam. Post op course explained. -Discussed that if any of these lesions fail to completely resolve after treatment patient should call me for re-evaluation Scar(s), History of Nonmelanoma Skin Cancer - Well healed scar(s) with no evidence of recurrence - Recommended periodic skin exams and instructed to call clinic if patient notices any changing lesions, including rapid enlargement, changes in color or shape or symptoms, bleeding, or other concerns. The common features and behavior of non-melanoma skin cancers (e.g. basal cell carcinoma/squamouscell carcinoma) as well as the features of melanoma were also reviewed. -Daily sun protection recommended including physical (i.e. clothing) and chemical blockers. Broad spectrum sunscreens with at least SPF 30 for UVA and UVA protection were recommended. Chronic Actinic Damage - Discussed that skin changes are due to chronic sun exposure. - Daily sun protection recommended including physical (i.e. clothing) and chemical blockers. Broad spectrum sunscreens with at least SPF 30 for UVA and UVA protection were recommended. Seborrheic keratoses - The benign nature of these lesions was discussed with the patient and that no treatment is indicated today. Param Nolasco MD REF: NAUN GUZMAN [address] [place] [address] (office) [phone] (fax) PCP: NAUN GUZMAN [address] [place] [address] [phone] documented in this encounter Nursing Notes * Shonna Hilliard LPN - 05/18/2024 11:01 AM EDT Patient identified by name and date of . Do you have any concerns about pain management for today's visit? No Living Will or Advance Directive for Health Care as noted on problem list. ieCrowder is a way you can talk to your provider online through e-mail. Would you like to sign up? I can activate it for you? NO Chief Complaint Patient presents with Follow Up Monitor for lesion on R. Ear, hx of NMSC documented in this encounter Plan of Treatment Upcoming Encounters Date Type Department Care Team (Latest Contact Info) Description 05/19/2024 9:30 AM EDT [facility] [address] [place] [address] Rolan Gamboa MD [address] [place] [address] 07/03/2024 10:40 AM EST Office Visit [facility] Ctr [facility] [address] [place] [phone] Laura Nunez, [address] [place] [address] 07/09/2024 2:10 PM EST Hospital Encounter [facility], Operating Room [facility] [address] [place] [phone] Puma Trammell, DO [address] [place] [address] 07/09/2024 2:10 PM EST - 07/09/2024 2:58 PM EST Surgery [facility], Operating Room [facility] [address] [place] [phone] Puma Trammell, DO [address] [place] [address] EXCISION SOFT TISSUE LESION EXTERNAL AUDITORY 08/06/2024 11:30 AM EST Office Visit Otolaryngology [facility] [address] [place] [address] Heath Painting PA-C [address] [place] [address] 10/09/2024 9:20 AM EDT Office Visit Family Practice [facility] [place] [address] [place] [address] Naun Guzman, DO [address] [facility] [place] [phone] 03/17/2025 10:00 AM EDT Nurse Only Ancillary [facility] Marix[place] [address] [place] [address] [place], Nurse Annual Wellness [facility] [address] [place] [address] 05/31/2025 8:30 AM EST Office Visit Dermatology [facility] [place] [address] [place] [address] Param Nolasco MD [address] [place] [address] Pending Results Name Type Priority Associated Diagnoses Date /Time SURGICAL PATHOLOGY Pathology Routine Skin neoplasm 05/18/2024 11:16 AM EDT Scheduled Procedures Name Priority Associated Diagnoses Date/Ti [...] this encounter Medical Devices Implanted Type Area Engine Room Operator Device Identifier Shelf Expiration Date Model / Serial / Lot Lens Intraoc 22.5 - [id number] - [id number] Implanted:Qty: 1 on 01/07/2018 by Andres Ty MD at OR [facility] Right: Eye [employer] 08/21/2022 [id number] / [id number] / [id number] Lens Intraoc 22.5 - [id number] - [id number] Implanted:Qty: 1 on 01/16/2018 by Andres Ty MD at OR [facility] Left: Eye [employer]CH [employer]OMB 06/20/2022 [id number] / [id number] / [id number] documented as of this encounter Visit Diagnoses Diagnosis Lesion of external ear canal, right- Primary Skin neoplasm- Primary Neoplasm of unspecified nature of bone, soft tissue, and skin Actinic skin damage Other dermatitis due to solar radiation Seborrheic keratoses Hx of basal cell carcinoma Personal history of other malignant neoplasm of skin Scar Scar condition and fibrosis of skin Actinic keratosis Lesion of external ear canal, right documented [...] and were consensually agreed upon. Care Teams Blow Pit Helper Relationship Specialty Start Date End Date Naun Guzman DO [facility] [place] [address] PCP - General Family Medicine 10/09/22 documented as of this encounter
--- OUTSIDE RECORDS SUMMARY | 2024-07-21 16:09 | External Medical Summary | Summary of Care ---
Author Name Unknown Organization [facility] Address [address] [facility] [place] [address] Phone [phone] Care Team Providers Care Microphone Boom Operator Name Role Phone MoraimaAlok jefferson Kayla HEALY Primary Care Provider [phone] Reason for Visit * Reason Comments NEW PATIENT Lesion in right ear canal * Evaluate & Treat - Unlimited Visits (Within 10 days (routine)) - Authorized Specialty Diagnoses / Procedures Referred By Rory velez Referred To Contact Otolaryngology Diagnoses Skin neoplasm Radha Raymond PA-C [address] [place] [address] Referral ID Status Reason Start Date Expiration Date Visits Requested Visits Authorized [id number] Authorized Specialty Services Required 03/24/2024 [id number] Encounter Details Date Type Department Care Team (Late st Contact Info) Description 04/27/2024 9:00 AM EDT Office Visit Otolaryngology [facility] [address] [place] [address] Heath Painting PA-C [address] [place] [address] Lesion of external ear canal, right* Allergies [...] performed by Joi Murphy MD at ENDOSCOPY [facility] COLONOSCOPY, GI REFERRAL OP 12/11/2005 normal repeat 2015, Dr Nolan, [facility] PARTIAL REMOVAL OF EYE FLUID Right 02/06/2016 PPV/EL for [facility] OD-Dr. Tena REMOVE CATARACT, INSERT LENS PROSTH Right 01/07/2018 right EXTRACAPSULAR CATARACT REMOVAL WITH INTRAOCULAR LENS performed by Andres Ty MD at OR [facility] REMOVE CATARACT, INSERT LENS PROSTH Left 01/16/2018 left EXTRACAPSULAR CATARACT REMOVAL WITH INTRAOCULAR LENS performed by Andres Ty MD at OR [facility] TENDON SHEATH INCISION, FINGER 2018 TENDON [...] of R ear canal lesion planned for [facility] with Dr. Trammell Pt would like removal-- we discussed risks of bleeding, infection, scarring, re-growth. Pt verbalized understanding and agrees with plan. Questions/Concerns addressed. Heath Painting PA-C [facility] [place] OTOL[facility]NGOLOGY [address] [place] [address] 04/27/2024 I spent a total of 30-39 [...] Painting PA-C. Please refer to the physician power plant assistant's note for the documented findings and [...] understanding signed informed consent. Puma Trammell DO, [facility] Hotel Operations Manager, Department of Otolaryngology-Head and Neck Surgery [facility], [place] 04/28/2024 12:24 PM documented in this encounter [...] on postoperative care. documented in this encounter Plan of Treatment Upcoming Encounters Date Type Department Care Team (Late st Contact Info) Description 05/18/2024 11:00 AM EDT Office Visit Dermatology [facility] [address] [place] [address] Param Nolasco MD [address] [place] [address] 05/19/2024 9:30 AM EDT Office Visit Urology, [facility] [address] [facility] [place] [address] Rolan Gamboa MD [address] [place] [address] 07/03/2024 10:40 AM EST Office Visit Sleep Disorders Ctr [facility] [address] [facility] [place] [phone] Laura Nunze, [address] [place] [address] 08/06/2024 11:30 AM EST Office Visit Otolaryngology [facility] [address] [place] [address] Heath Painting PA-C [address] [facility] [place] [address] 10/09/2024 9:20 AM EDT Office Visit Family Practice [facility] [place] [address] [facility] [place] [address] Alok Guzman, DO [address] [facility] [place] [id number] 03/17/2025 10:00 AM EDT Nurse Only Ancillary [facility] [place] [address] [facility] [place] [address] Marix[place], Nurse Annual Wellness [address] [place] [phone] Scheduled Procedures Name Priority Associated Diagnoses Date/Ti [...] this encounter Medical Devices Implanted Type Area Resp Ther Device Identifier Shelf Expiration Date Model / Serial / Lot Lens Intraoc 22.5 - [id number] - [id number] Implanted:Qty: 1 on 01/07/2018 by Andres Ty MD at OR [facility] Right: Eye [employer] 08/21/2022 [id number] / [id number] / [id number] Lens Intraoc 22.5 - [id number] - [id number] Implanted:Qty: 1 on 01/16/2018 by Andres Ty MD at OR [facility] Left: Eye [employer] 06/20/2022 [id number] / [id number] / [id number] documented as of this encounter Visit Diagnoses [...] and were consensually agreed upon. Care Teams Microphone Boom Operator Relationship Specialty Start Date End Date Alok Guzman DO [address] [place] [address] PCP - General Family Medicine 10/09/22 documented as of this encounter
--- OUTSIDE RECORDS SUMMARY | 2024-07-21 16:09 | External Medical Summary | Summary of Care ---
Author Name Unknown Organization [facility] Address [address] [place] [facility] [place] [facility] [place] [address] Phone [phone] Care Team Providers Care Box Truck Driver Name Role Phone Alok Guzman DO Primary Care Provider [phone] Reason for Visit * Reason Comments Excision Excision right upper back Encounter Details Date Type Department Care Team (Late st Contact Info) Description 06/23/2024 2:00 PM EST Office Visit MOHS Surgery [facility] [address] [facility] [place] [address] Mirian Barragan MD 200 [place] [address] Pigmented skin lesion of uncertain behavior of torso*; Skin lesion Allergies No known active allergiesdocumented as of this encounter (statuses as of 06/26/2024) Medications CPAP every night at bedtime. 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 Pathology as follows: A. Skin, Right upper back, shave: Compound dysplastic nevus with severe atypia (see comment) Comment: The possibility of evolving melanoma in situ arising in a dysplastic nevus was considered,given the asymmetry and degree of atypia and PRAME expression noted in one area of this specimen, but deeper levels show less atypia, and significant PRAME expression is not observed elsewhere in thelesion, favoring an atypical nevus. This case has also been seen in intradepartmental consultation.The process extends focally to a peripheral margin. A re-excision to ensure complete removal is recommended. Patient asks about a lesion at his left jawline. Examination Edmond Bear, 74 year old male, is alert, oriented and appears well and in no distress. The following lesion was noted and addressed: 1) A- Location: right upper back Appearance: 8 mm x 8 mm pink scar 2) B- left jawline: large pink plaque/nodule with telangiectasias Impression/Recommendation: 1) Compound dysplastic nevus with severe atypia. The possibility of evolving melanoma in situ arising in a dysplastic nevus was considered, given the asymmetry and degree of atypia and PRAME expression noted in one area of this specimen, but deeper levels show less atypia, and significant PRAME expression is not observed elsewhere in the lesion, favoring an atypical nevus, right upper back - The lesion was excised (see separate note) 2) lesion B, left jawline. Favor basal cell carcinoma Shave Biopsy of the lesion noted above to establish and confirm diagnosis. The procedure, risks, benefits, alternatives and expected outcomes were discussed with the patient and consent was obtained. Time out called. Patient identified, procedure verified, site identified and verified. Patient andstaff present in agreement. Area prepped with alcohol and anesthetized with 0.5% lidocaine with epinephrine at 1:200,000 concentration. Biopsy of lesion performed. 20% AlCl and bandaging applied. Specimen sent to pathology. Patient instructed in routine post-op care. Follow-up: as needed Mirian Barragan MD 06/23/2024 PROCEDURE NOTE Referred by: Param Nolasco MD Preoperative diagnosis: Compound dysplastic nevus with severe atypia. The possibility of evolving melanoma in situ arising in a dysplastic nevus was considered, given the asymmetry and degree of atypia and PRAME expression noted in one area of this specimen, but deeper levels show less atypia, and s ignificant PRAME expression is not observed elsewhere in the lesion, favoring an atypical nevus Postoperative diagnosis: Pending Location: right upper back Surgeon(s): Mirian Barragan MD Anesthesia: Lidocaine 0.5% with epinephrine 1:200,000 by local infiltration Procedure: Excision of soft tissue lesion and closure of defect with an intermediate layered repair Estimated blood loss: Less than 5cc Complications: none Preoperative size: 0.8 cm x 0.8 cm without margins, 1.8 cm x 1.8 cm with margins Postoperative length of closure: 5.2 cm Description of procedure: The patient was escorted to the procedure room. Timeout was called. Patient name, medical record number, date and procedure were verified. Verification of positioning,equipment and availability of supplies was executed. Site(s) identified and marked prior to procedure. Patient and staff present were in agreement. The surgical site was examined and excision was planned to take at least 5 mm of normal-appearing skin in all directions. The skin was then locally anesthetized and prepped in the usual fashion. Excision was performed through the full thickness of skin into the subcutaneous tissue. The specimen was submitted in formalin for histologic examination. Meticulous hemostasis was obtained with the electrosurgical device and the defect was closed primarily with a layered repair using deep sutures of 2-0 and 3-0 Vicryl and superficial sutures of 5-0 Vicryl Rapide. A sterile pressure dressing was placed. Postoperative care: The patient was instructed to cleanse the wound daily, followed by the application of sterile ointment and a nonadherent dressing. I urged the patient to call us if any problems or questions should arise postoperatively. documented in this encounter Nursing Notes * Beka Padilla LPN - 06/23/2024 1:55 PM EST Patient identified by name and date. Chief Complaint Patient presents with Excision Excision right upper back Referral Doctor: Dr. Nolasco Hypertension History: No Diabetes History: No Thyroid History: No Bleeding Tendency: No Artificial Valve or Joint: No Pacemaker: no Defibrillator: no Hepatitis/HIV Exposure: No Smoking: no Consent signed yes documented in this encounter Miscellaneous Notes * Result Encounter Note - Kinsey Guerra LPN - 06/25/2024 3:11 PM EST Called and spoke to both the patient and his about both results and explained the Mohs surgeryprocedure to them. I answered all questions and transferred directly to scheduling for an appointment. * Result Encounter Note - Mirian Barragan MD - 06/25/2024 2:33 PM EST A- Please let patient know that margins are clear and make sure he doesn't have any questions regarding the wound/wound care. B- Please let patient know that lesion biopsied on left jawline was a basal cell skin cancer and that it will need to be treated with Mohs surgery (please send to scheduling). A. Skin, right upper back, excision: Prior procedure site changes; no dysplastic melanocytic nevus identified in the planes of section examined (see comment) Comment: The prior procedure site changes do not extend to an inked margin in the planes of sectionexamined. B. Skin, left jawline, shave: Basal cell carcinoma, nodular and infiltrative types documented in this encounter Plan of Treatment Upcoming Encounters Date Type Department Care Team (Latest Contact Info) Description 07/03/2024 10:40 AM EST Office Visit Sleep Disorders Ctr [facility] [address] [place] [phone] Laura Nunez, DO [address] [place] [address] 07/09/2024 1:51 PM EST Hospital Encounter [facility], Operating Room [facility] [address] [place] [phone] Puma Trammell, DO [address] [place] [address] 07/09/2024 1:51 PM EST - 07/09/2024 2:39 PM EST Surgery [facility], Operating Room [facility] [address] [place] [phone] Puma Trammell, DO [address] [place] [address] EXCISION SOFT TISSUE LESION EXTERNAL AUDITORY 08/06/2024 11:30 AM EST Office Visit Otolaryngology [facility] [address] [place] [address] Heath Painting PA-C [address] [place] [address] 10/09/2024 9:20 AM EDT Office Visit Family Practice [facility] [place] [address] [facility] [place] [address] Alok Guzman, DO [address] [place] [address] 12/23/2024 8:15 AM EDT Office Visit MOHS Surgery [facility] [place] [address] [place] [address] Mirian Barragan MD [address] [place] [address] 03/17/2025 10:00 AM EDT Nurse Only Ancillary [facility] [place] [address] [place] [address] [place], Nurse Annual Wellness [facility] [address] [facility] [place] [address] 05/31/2025 8:30 AM EST Office Visit Dermatology [facility] [place] [address] [place] [address] Param Nolasco MD [address] [facility] [place] [address] Scheduled Procedures Name Priority Associated Diagnoses Date/Ti me EXCISION SOFT TISSUE LESION EXTERNAL AUDITORY Lesion of external ear canal, right 07/09/2024 1:51 PM EST OTOLARYNGOLOGIC EXAMINATION UNDER GENERAL ANESTHESIA Lesion of external ear canal, right 07/09/2024 1:51 PM EST COLONOSCOPY FLEXIBLE PROXIMA L DIAGNOSTIC [...] this encounter Medical Devices Implanted Type Area Preschool Aide Device Identifier Shelf Expiration Date Model / Serial / Lot Lens Intraoc 22.5 - [id number] - [id number] Implanted:Qty: 1 on 01/07/2018 by Andres Ty MD at OR [facility] Right: Eye [employer] 08/21/2022 [id number] / [id number] / [id number] Lens Intraoc 22.5 - [id number] - [id number] Implanted:Qty: 1 on 01/16/2018 by Andres Ty MD at OR [facility] Left: Eye [employer] 06/20/2022 [id number] / [id number] / [id number] documented as of this encounter Procedures Procedure Name Priority Date/Time Associated Diagnosis Comments DERM IMAGE (SITE) Routine 06/24/2024 Skin lesion SURGICAL PATHOLOGY Routine 06/23/2024 3: 30 PM EST Skin lesion documented in this encounter Results * DERM IMAGE (SITE) (06/24/2024) 06/24/2024 us Mirian Barragan MD DIGITAL PHOTOGRAPHY Fin al Result * SURGICAL PATHOLOGY (06/23/2024 3:30 PM EST) Final Diagnosis A. Skin, right upper back, excision: Prior procedure site changes; no dysplastic melanocytic nevus identified in the planes of section examined (see comment) Comment: The prior procedure site changes do not extend to an inked margin in the planes of section examined. B. Skin, left jawline, shave: Basal cell carcinoma, nodular and infiltrative types 06/25/2024 12:13 PM EST [facility] Clinical History See Order Comments 06/25/2024 12:13 PM EST [facility]ORY [facility] Order Comments A.Right upper back: excision of "Compound dysplastic nevus with severe atypia", suture at superior pole B.left jawline: favor basal cell carcinoma. Shave biopsy 06/25/2024 12:13 PM EST [facility]ORY [facility] Gross Description A. Skin. Received in formalin with a container labeled with "Edmond Hawthornetejasbeti", "[id number]", "1950" and " right upper back". Received is an oriented skin excision measuring 4.4 x 2.2 x 1.0 cm with suture designating superior aspect of specimen. The skin surface is robles-yellow to white with a white to red pink possibly previously scarred area measuring 0.7 x 0.7 cm extending to within 0.5 cm of the nearest margin. Blue and orange inked are used to designate margins. The specimen is serially sectioned into 15 and 1 piece each is sequentially submitted in cassettes A1 through A15 according to the attached diagram. Gross By: LEILA Ayala Skin. Received in formalin with a container labeled with "Edmond Bear", "[id number]", "1950" and " left jawline". Received is a skin shave measuring 1.6 x 1.2 cm. The skin surface is robles-white to brown and hair-bearing with a firm to slightly raised appearance and a robles-pink to brown crusted area measuring 0.3 x 0.2 cm extending to within 0.4 cm of the nearest margin. Adjacent is some red-brown pigmented speckling. The underlying tissue is inked blue. The specimen is serially sectioned into 6 and 2 pieces each are submitted in cassettes B1 through B3. Gross By: LEILA 06/25/2024 12:13 PM EST LABORATORY [facility] Sign Out Location Pathologist sign out performed at [facility] ([facility]), [address] [facility], [place] [address]. 06/25/2024 12:13 PM EST LABORATORY [facility] Photographic images and diagrams represent mchugh findings in this case; they are not intended to replace a complete review of the final diagnostic report. The following statement applies to Flow Cytometry, Histology, In situ Hybridization Assays and Molecular Genetics. This test was developed and performed at [facility] and its performance characteristics determined by [employer]. It has not been cleared or approved by the U.S. Food and Drug Administration. The FDA has determined that such clearance or approval is not necessary. This test is used for clinical purposes. It should not be regarded as investigational or for research. Special stains, including histochemical stains, and studies using immunologic and SADIE methodology (where applicable) are performed with appropriate positive and negative control reactions. 06/25/2024 12:13 PM EST LABORATORY [facility] Tissue Skin structure / Unknown 06/23/2024 3:30 PM EST 06/23/2024 3:30 PM EST Comment:A.Right upper back: excision of "Compound dysplastic nevus with severe atypia", suture at superior pole B.left jawline: favor basal cell carcinoma. Shave biopsy Specimen from wound (specimen) Skin structure / Unknown 06/23/2024 3:30 PM EST 06/23/2024 3:30 PM EST Comment:A.Right upper back: excision of "Compound dysplastic nevus with severe atypia", suture at superior pole B.left jawline: favor basal cell carcinoma. Shave biopsy us Mirian Barragan MD LAB PATHOLOGY ORDERABLE S Final Result [facility]ORY [facility] [address] [place] [address] documented in this encounter Visit Diagnoses Diagnosis Lesion of external ear canal, right- Primary Pigmented skin lesion of uncertain behavior of torso- Primary Skin lesion Unspecified disorder of skin and subcutaneous tissue Lesion of external ear canal, right documented [...] and were consensually agreed upon. Care Teams Box Truck Driver Relationship Specialty Start Date End Date Alok Guzman DO [address] [place] [address] PCP - General Family Medicine 10/09/22 documented as of this encounter
--- OUTSIDE RECORDS SUMMARY | 2024-07-21 16:09 | External Medical Summary | Summary of Care ---
Author Name Unknown Organization [facility] Address [address] [facility] [place] [address] Phone [phone] Care Team Providers Care Senior Bookkeeper Name Role Phone Alok Guzman DO Primary Care Provider [phone] Reason for Visit * Reason Comments Follow Up Sleep Apnea Encounter Details Date Type Department Care Team (Late st Contact Info) Description 07/03/2024 10:40 AM EST Office Visit [facility]tr [facility] [address] [place] [phone] Laura Nunez DO [address] [place] [address] CHERYL on CPAP* Allergies No known active allergiesdocumented as of this encounter (statuses as of 07/03/2024) Medications CPAP every night at bedtime. 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 Not on file Not on file documented as of this encounter Last Filed Vital Signs Vital Sign Reading Time Taken Comments Blood Pressure 120/80 07/03/2024 11:42 AM EST Pulse 65 07/03/2024 11:42 AM EST Temperature 36.2 C (97.2 F) 07/03/2024 11:[address] Respiratory Rate 16 07/03/2024 11:42 AM EST Oxygen Saturation 91% 07/03/2024 11:42 AM EST Inhaled Oxygen Concentration - - Weight 112.5 kg (248 lb) 07/03/2024 11:42 AM EST Height 170.2 cm (5' 7") 07/03/2024 11:42 AM EST Body Mass Index 38.84 07/03/2024 11:42 AM EST documented in this encounter Progress Notes * Laura Nunez, - 07/03/2024 12:00 PM EST Sleep Medicine Follow-Up Clinic Note HISTORY: Mr. Edmond Bear is a 74 year old male who is in clinic today for follow up of Obstructive Sleep Apnea. Mr. Bear continues to adhere to his PAP therapy and feels it is beneficial to him. He is tolerating his below the nose mask well. Denies significant leak, prolonged facial monzon from mask, aerophagia, dry eyes/nose/mouth, and feeling the pressure is too much or too little. "Sleep Medicine to date: HST 2014: AHI 45.8 PAP titration 05/2015: AHI 7.7 with CPAP at 4. Titrated to 10 cmH2O with resolution of apneas and hypoxemia. PLMI 7.7, PLMIA 0.8. NPO 2016 on CPAP: valerie 84%, < 88% 01 minutes 56 seconds." - SHANNON Sprague Tustin Sleepiness Scale Question 07/03/2024 11:46 AM EST - Filed by Keli Lopez LPN What is the chance you will doze off in the following situation? Sitting and reading No chance of dozing Watching TV No chance of dozing Sitting inactive in a public place, such as a theater or meeting No chance of dozing As a passenger in a car for an hour without a break No chance of dozing Lying down to rest in the afternoon when circumstances permit No chance of dozing When sitting and talking to someone No chance of dozing When sitting quietly after lunch without alcohol No chance of dozing In a car, while stopped for a few minutes in traffic No chance of dozing Score (range: 0 - 24) 0 PAP Compliance: Report date: 04/03/24 to 07/01/24 % total days used: 100% % days used > 4 hours: 97.8% Average hours a day: 6 hours 55 mins Large leak: 46 sec AHI: 1.5/hr Set pressure: 12 cmH20 Equipment: DME Provider is [facility] Patient Active Problem List Diagnosis Obstructive sleep apnea of adult CPAP (continuous positive airway pressure) dependence Preauricular sinus Hx of nonmelanoma skin cancer Morbid obesity due to excess calories (HCC) Body mass index (BMI) of 40.0 to 44.9 in adult (HCC) Lesion of external ear canal, right Current Outpatient Medications Medication Sig Dispense Refill Finasteride 5 MG Oral Tablet (Proscar) Take 1 Tablet by mouth in the morning. 90 Tablet 3 Tamsulosin HCl 0.4 MG Oral Capsule (Flomax) Take 1 Capsule by mouth at bedtime. 90 Capsule 3 Zinc Picolinate Powder Use as directed. CPAP every night at bedtime. Multivitamin Adults 50+ Oral Tablet Take by mouth. No current facility-administered medications for this visit. PHYSICAL EXAM: BP 120/80 | Pulse 65 | Temp 36.2 C (97.2 F) (Tympanic) | Resp 16 | Ht 1.702 m (5' 7") | Wt 112.5 kg (248 lb) | SpO2 91% | BMI 38.84 kg/m | BSA 2.31 m Constitutional: Alert, oriented in no acute distress Skin: no markings on face where mask fits Chest: Normal respiratory effort at rest Neuro: Normal speech and comprehension Psych: Appropriate mood and affect ASSESSMENT/PLAN: Obstructive Sleep Apnea Encouraged continued use of PAP every night, all night and for naps. Continue PAP at current setting Recommended routine cleaning and change of supplies as needed. Even a mild to moderate weight loss should result in significant improvement in the patients nocturnal respiratory events. Strenuous exercise, which activates the sympathetic nervous system (adrenaline system) not only helps with weight loss, glucose, and mood, but also improves sleep quality, and upper respiratory muscle tone during sleep. Avoid driving, operating heavy machinery or engaging in any activity that requires full alertness if feeling sleepy, drowsy or otherwise impaired. Follow-up with Sleep Medicine in 1 year. Laura Nunez DO I spent a total of 20-29 minutes (exact time 20 mins) on the date of service in preparation, delivery, and documentation of the care provided to Edmond Bear excluding any time spent in the performance of separately billed services. documented in this encounter Nursing Notes * Keli Lopez LPN - 07/03/2024 11:45 AM EST Chief Complaint Patient presents with Follow Up Sleep Apnea Cpap DME: [facility] No questionnaires available. [place] Sleepiness Scale Question 07/03/2024 11:46 AM EST - Filed by Keli Lopez LPN What is the chance you will doze off in the following situation? Sitting and reading No chance of dozing Watching TV No chance of dozing Sitting inactive in a public place, such as a theater or meeting No chance of dozing As a passenger in a car for an hour without a break No chance of dozing Lying down to rest in the afternoon when circumstances permit No chance of dozing When sitting and talking to someone No chance of dozing When sitting quietly after lunch without alcohol No chance of dozing In a car, while stopped for a few minutes in traffic No chance of dozing Score (range: 0 - 24) 0 documented in this encounter Plan of Treatment Upcoming Encounters Date Type Department Care Team (Latest Contact Info) Description 07/09/2024 12:29 PM EST Hospital Encounter [facility], Operating Room [address] [place] [address] Puma Trammell, DO [address] [place] [address] 07/09/2024 12:29 PM EST - 07/09/2024 1:17 PM EST Surgery OR [facility], Operating Room [facility] [address] [place] [phone] Puma Trammell, DO [address] [place] [address] EXCISION SOFT TISSUE LESION EXTERNAL AUDITORY 08/06/2024 11:30 AM EST Office Visit Otolaryngology [facility] [address] [place] [address] Heath Painting PA-C [address] [place] [address] 10/09/2024 9:20 AM EDT Office Visit Family Practice [facility] [address] [place] [address] Alok Guzman, DO [address] [place] [address] 12/23/2024 8:15 AM EDT Office Visit MOHS Surgery [facility] [place] [address] [place] [address] Mirian Barragan MD [address] [place] [address] 03/17/2025 10:00 AM EDT Nurse Only Ancillary [facility] [place] [address] [place] [address] [place], Nurse Annual Wellness [facility] [address] [place] [address] 05/31/2025 8:30 AM EST Office Visit Dermatology [facility] [place] [address] [place] [address] Param Nolasco MD 200 [facility] [place] [address] Scheduled Procedures Name Priority Associated Diagnoses Date/Ti me EXCISION SOFT TISSUE LESION EXTERNAL AUDITORY Lesion of external ear canal, right 07/09/2024 12:29 PM EST OTOLARYNGOLOGIC EXAMINATION UNDER GENERAL ANESTHESIA Lesion of external ear canal, right 07/09/2024 12:29 PM EST COLONOSCOPY FLEXIBLE PROXIMA L DIAGNOSTIC [...] this encounter Medical Devices Implanted Type Area Faculty Research Assistant Device Identifier Shelf Expiration Date Model / Serial / Lot Lens Intraoc 22.5 - [id number] - [id number] Implanted:Qty: 1 on 01/07/2018 by Andres Ty MD at OR [facility] Right: Eye [employer] 08/21/2022 [id number] / [id number] / [id number] Lens Intraoc 22.5 - [id number] - [id number] Implanted:Qty: 1 on 01/16/2018 by Andres Ty MD at OR [facility] Left: Eye [employer]OM[employer] 06/20/2022 [id number] / [id number] / [id number] documented as of this encounter Visit Diagnoses Diagnosis Lesion of external ear canal, right- Primary CHERYL on CPAP- Primary Obstructive sleep apnea (adult) (pediatric) Lesion of external ear canal, right documented [...] and were consensually agreed upon. Care Teams Senior Bookkeeper Relationship Specialty Start Date End Date Alok Guzman DO [address] [place] [address] PCP - General Family Medicine 10/09/22 documented as of this encounter
--- OUTSIDE RECORDS SUMMARY | 2024-07-21 16:09 | External Medical Summary | Summary of Care ---
Author Name Unknown Organization [facility] Address [address] [facility] [place] [address] Phone [phone] Care Team Providers Care Long Wall Mining Machine Tender Name Role Phone MoraimaAlok jefferson Kayla HEALY Primary Care Provider [phone] Reason for Visit * Reason Comments NEW PATIENT Lesion in right ear canal * Evaluate & Treat - Unlimited Visits (Within 10 days (routine)) - Authorized Specialty Diagnoses / Procedures Referred By Rory velez Referred To Contact Otolaryngology Diagnoses Skin neoplasm Radha Raymond PA-C [address] [place] [address] Referral ID Status Reason Start Date Expiration Date Visits Requested Visits Authorized [id number] Authorized Specialty Services Required 03/24/2024 [id number] Encounter Details Date Type Department Care Team (Late st Contact Info) Description 04/27/2024 9:00 AM EDT Office Visit Otolaryngology [facility] [address] [place] [address] Heath Painting PA-C [address] [place] [address] Lesion of external ear canal, right* Allergies No known active allergiesdocumented as of this encounter (statuses as of 04/29/2024) Medications Medication Sig Dispensed Refills Start Date [...] as of this encounter (statuses as of 04/29/2024) Active Problems Problem Noted Date Diagnosed Date Body mass index (BMI) of 40.0 to [...] as of this encounter (statuses as of 04/29/2024) Resolved Problems Problem Noted Date Diagnosed Date [...] as of this encounter (statuses as of 04/29/2024) Immunizations Name Administration Dates Next Due DTWP [...] 08/12/2015 Vitreous hemorrhage (HCC) 02/06/2016 PPV/EL for [facility] OD-Dr. Tena Past Surgical History: Procedure Laterality Date COLONOSCOPY, DIAGNOSTIC (RECTUM) 06/13/2020 adenomatous polyp, repeat 5 yrs / COLONOSCOPY FLEXIBLE PROXIMAL DIAGNOSTIC performed by Joi Murphy MD at ENDOSCOPY [facility] COLONOSCOPY, GI REFERRAL OP 12/11/2005 normal repeat 2015, Dr Nolan, [facility] PARTIAL REMOVAL OF EYE FLUID Right 02/06/2016 PPV/EL for [facility] OD-Dr. Tena REMOVE CATARACT, INSERT LENS PROSTH Right 01/07/2018 right EXTRACAPSULAR CATARACT REMOVAL WITH INTRAOCULAR LENS performed by Andres Ty MD at OR [facility] REMOVE CATARACT, INSERT LENS PROSTH Left 01/16/2018 left EXTRACAPSULAR CATARACT REMOVAL WITH INTRAOCULAR LENS performed by Andres Ty MD at OR [facility] TENDON SHEATH INCISION, FINGER 2018 TENDON SHEATH [...] of R ear canal lesion planned for [facility] with Dr. Trammell Pt would like removal-- we discussed risks of bleeding, infection, scarring, re-growth. Pt verbalized understanding and agrees with plan. Questions/Concerns addressed. Heath Painting PA-C [facility] OUTPATIENT SURGERY [place] OTOLARYNGOLOGY [address] [place] [address] 04/27/2024 I spent a total of 30-39 [...] Painting PA-C. Please refer to the physician curatorial assistant's note for the documented findings and [...] understanding signed informed consent. Puma Trammell DO, [facility] Kitchen Worker, Department of Otolaryngology-Head and Neck Surgery [facility] [place], [place] 04/28/2024 12:24 PM documented in this encounter [...] 05/18/2024 11:00 AM EDT Office Visit Dermatology [address] [place] [address] [place] [address] Param Nolasco MD [address] [place] [address] 05/19/2024 9:30 AM EDT Office Visit Urology, [facility] [address] [place] [address] Rolan Gamboa MD [address] [place] [address] 07/03/2024 10:40 AM EST Office Visit Sleep Disorders Ctr [facility] [address] [facility] [place] [phone] Laura Nunez, DO 132 [facility] [place] [address] 08/06/2024 11:30 AM EST Office Visit Otolaryngology [facility] [address] [facility] [place] [address] Heath Painting PA-C 132 [facility] [place] [address] 10/09/2024 9:20 AM EDT Office Visit Family Practice [facility] [address] [facility] [place] [address] Alok Guzman, DO [address] [facility] [place] [address] 03/17/2025 10:00 AM EDT Nurse Only Ancillary [facility] [address] [facility] [place] [address] Marixa, Nurse Annual Wellness [address] [facility] [place] [address] Scheduled Procedures Name Priority Associated Diagnoses Date/Ti me COLONOSCOPY FLEXIBLE PROXIMAL DIAGNOSTIC Recall History of colon polyps Scheduled Referrals Name Type Priority Associated Diagnoses Order Schedule ADULT/PEDS OTOLARYNGOLOGY REFERRAL OP Referral Within 10 days (routine) Skin neoplasm Ordered: 03/24/2024 Health Maintenance Due Date Last Done Comments [...] this encounter Medical Devices Implanted Type Area Foundry Manager Device Identifier Shelf Expiration Date Model / Serial / Lot Lens Intraoc 22.5 - [id number] - [id number] Implanted:Qty: 1 on 01/07/2018 by Andres Ty MD at OR [facility] Right: Eye [employer] 08/21/2022 [id number] / [id number] / [id number] Lens Intraoc 22.5 - [id number] - [id number] Implanted:Qty: 1 on 01/16/2018 by Andres Ty MD at OR [facility] Left: Eye [employer]OM[employer] 06/20/2022 [id number] / [id number] / [id number] documented as of this encounter Visit Diagnoses [...] and were consensually agreed upon. Care Teams Long Wall Mining Machine Tender Relationship Specialty Start Date End Date Alok Guzman DO [address] [place] [address] PCP - General Family Medicine 10/09/22 documented as of this encounter
--- OUTSIDE RECORDS SUMMARY | 2024-07-21 16:09 | External Medical Summary | Summary of Care ---
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 Please Advise. Thank you. documented in this encounter Plan of Treatment Upcoming Encounters Date Type Department Care Team (Latest Contact Info) Description 07/09/2024 12:29 PM EST Hospital Encounter OR [facility], Operating Room [facility] [address] [place] [address] Puma Trammell, [address] [place] [address] 07/09/2024 12:29 PM EST - 07/09/2024 1:17 PM EST Surgery OR [facility], Operating Room [facility] [address] [place] [address] Puma Trammell, [address] [place] [address] EXCISION SOFT TISSUE LESION EXTERNAL AUDITORY 08/06/2024 11:30 AM EST Office Visit Otolaryngology [facility] [address] [place] [address] Heath Painting PA-C [address] [place] [address] 10/09/2024 9:20 AM EDT Office Visit [facility] [address] [place] [address] Alok Gumzan, DO 200 [facility] [place] [address] 12/23/2024 8:15 AM EDT Office Visit MOHS Surgery [facility] [place] [address] [place] [address] Mirian Barragan MD 200 [facility] [place] [address] 03/17/2025 10:00 AM EDT Nurse Only Ancillary [facility] 200 [facility] [place] [address] [place], Nurse Annual Wellness [facility] 200 [facility] [place] [address] 05/31/2025 8:30 AM EST Office Visit Dermatology [facility] [address] [place] [address] Param Nolasco MD 200 [facility] [place] [address] Scheduled Procedures Name Priority Associated Diagnoses Date/Ti [...] this encounter Medical Devices Implanted Type Area Pet Sitter Device Identifier Shelf Expiration Date Model / Serial / Lot Lens Intraoc 22.5 - [id number] - [id number] Implanted:Qty: 1 on 01/07/2018 by Andres Ty MD at OR [facility] Right: Eye [employer] 08/21/2022 [id number] / [id number] / [id number] Lens Intraoc 22.5 - [id number] - [id number] Implanted:Qty: 1 on 01/16/2018 by Andres Ty MD at OR [facility] Left: Eye [employer]OM[employer] 06/20/2022 [id number] / [id number] / [id number] documented as of this encounter Advance Directives [...] and were consensually agreed upon. Care Teams Grid Caster Relationship Specialty Start Date End Date Alok Guzman DO 200 [facility] [place] [address] PCP - General Family Medicine 10/09/22 documented as of this encounter
--- OUTSIDE RECORDS SUMMARY | 2024-07-21 16:09 | External Medical Summary | Summary of Care ---
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 No answer. Voice mail left requesting return call documented in this encounter Plan of Treatment Upcoming Encounters Date Type Department Care Team (Latest Contact Info) Description 07/09/2024 12:29 PM EST Hospital Encounter OR [facility], Operating Room [facility] [address] [place] [address] Puma Trammell, [address] [place] [address] 07/09/2024 12:29 PM EST - 07/09/2024 1:17 PM EST Surgery OR [facility], Operating Room [facility] [address] [place] [phone] Puma Trammell DO [address] [place] [address] EXCISION SOFT TISSUE LESION EXTERNAL AUDITORY 08/06/2024 11:30 AM EST Office Visit Otolaryngology [facility] [address] [place] [address] Heath Painting PA-C [address] [place] [address] 10/09/2024 9:20 AM EDT Office Visit [facility] [address] Alok Guzman DO [address] [facility] [place] [address] 12/23/2024 8:15 AM EDT Office Visit MOHS Surgery [facility] [place] [address] [place], [place] [address] Mirian Barragan MD 200 [facility] [place] [address] 03/17/2025 10:00 AM EDT Nurse Only Ancillary [facility] [place] [address] [place] [address] Marixa, Nurse Annual Wellness [facility] 200 [facility] [place] [address] 05/31/2025 8:30 AM EST Office Visit Dermatology [facility] [address] [place] [address] Param Nolasco MD 200 [facility] [place] [address] Scheduled Procedures Name Priority Associated Diagnoses Date/Ti [...] this encounter Medical Devices Implanted Type Area Magazine Filler Device Identifier Shelf Expiration Date Model / Serial / Lot Lens Intraoc 22.5 - [id number] - [id number] Implanted:Qty: 1 on 01/07/2018 by Andres Ty MD at OR [facility] Right: Eye [employer] 08/21/2022 [id number] / [id number] / [id number] Lens Intraoc 22.5 - [id number] - [id number] Implanted:Qty: 1 on 01/16/2018 by Andres Ty MD at OR [facility] Left: Eye [employer]OM[employer] 06/20/2022 [id number] / [id number] / [id number] documented as of this encounter Visit Diagnoses Diagnosis Lesion of external ear canal, right- Primary CHERYL (obstructive sleep apnea)- Primary Obstructive sleep apnea (adult) (pediatric) Lesion [...] and were consensually agreed upon. Care Teams Early Head Start Teacher Relationship Specialty Start Date End Date Alok Guzman DO [facility] [place] [address] PCP - General Family Medicine 10/09/22 documented as of this encounter
--- OUTSIDE RECORDS SUMMARY | 2024-07-21 16:09 | External Medical Summary | Summary of Care ---
Author Name Unknown Organization [facility] Address [address] [facility] [place] [address] Phone [phone] Care Team Providers Care Milk And Cream Grader Name Role Phone MoraimaAlok jefferson Primary Care Provider [phone] Encounter Details Date Type Department Care Team (Late st Contact Info) Description 05/26/2024 Telephone Dermatology [facility] [place] 200 [facility] [place] [address] Param Nolasco MD 200 [facility] [place] [address] Allergies No known active allergiesdocumented as of this encounter (statuses as of 05/27/2024) Medications Medication Sig Dispensed Refills Start Date End Date Status CPAP every night at bedtime. Active Multivitamin Adults 50+ Oral Tablet Take by mouth. Activ e Zinc Picolinate Powder Use as directed. Active Finasteride 5 MG Oral Tablet (Proscar) Take 1 Tablet by mouth in the morning. 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 90 Capsule 3 05/19/2024 Active documented as of this encounter (statuses as of 05/27/2024) Active Problems Problem Noted Date Diagnosed Date [...] 08/12/2015 CPAP (continuous positive airway pressure) depen denshira 08/12/2015 documented as of this encounter (statuses as of 05/27/2024) Resolved Problems Problem Noted Date Diagnosed Date [...] as of this encounter (statuses as of 05/27/2024) Immunizations Name Administration Dates Next Due DTWP [...] encounter Miscellaneous Notes * Telephone Encounter - Beatriz Shabazz OSA - 05/27/2024 8:46 AM EST Patient returned call and scheduled excision for 06/[address] Barragan. * Telephone Encounter - Beatriz Shabazz OSA - 05/26/2024 4:22 PM EST Called patient, left message to return call to schedule excision. * Telephone Encounter - Shonna Hilliard LPN - 05/26/2024 9:42 AM EST lVM for the patient to call our office back. If he calls back he can speak to any nurse staff. Please relay the message below. documented in this encounter Plan of Treatment Upcoming Encounters Date Type Department Care Team (Latest Contact Info) Description 06/23/2024 2:00 PM EST Office Visit MOHS Surgery [facility] [address] [place] [address] Mirian Barragan MD 200 [place] [address] 07/03/2024 10:40 AM EST Office Visit Sleep Disorders Ctr [facility] [address] [place] [address] Laura Nunez, DO [address] [place] [address] 07/09/2024 1:57 PM EST Hospital Encounter [facility], Operating Room [facility] [address] [place] [address] Puma Trammell, DO [address] [place] [address] 07/09/2024 1:57 PM EST - 07/09/2024 2:45 PM EST Surgery [facility], Operating Room [facility] [address] [place] [phone] Puma Trammell, DO [address] [place] [address] EXCISION SOFT TISSUE LESION EXTERNAL AUDITORY 08/06/2024 11:30 AM EST Office Visit Otolaryngology [facility] [address] [place] [address] Heath Painting PA-C [address] [place] [address] 10/09/2024 9:20 AM EDT Office Visit Family Practice [facility] [place] [address] [place] [address] Alok Guzman, DO 200 [facility] [place] [address] 03/17/2025 10:00 AM EDT Nurse Only Ancillary [facility] [place] [address] [place] [address] [place], Nurse Annual Wellness [facility] [address] [facility] [place] [address] 05/31/2025 8:30 AM EST Office Visit Dermatology [facility] [place] [address] [place] [address] Param Nolasco MD 200 [facility] [place] [address] Scheduled Procedures Name Priority Associated Diagnoses Date/Ti me EXCISION SOFT TISSUE LESION EXTERNAL AUDITORY Lesion of external ear canal, right 07/09/2024 1:57 PM EST OTOLARYNGOLOGIC EXAMINATION UNDER GENERAL ANESTHESIA Lesion of external ear canal, right 07/09/2024 1:57 PM EST COLONOSCOPY FLEXIBLE PROXIMA L DIAGNOSTIC [...] this encounter Medical Devices Implanted Type Area Healthcare Representative Device Identifier Shelf Expiration Date Model / Serial / Lot Lens Intraoc 22.5 - [id number] - [id number] Implanted:Qty: 1 on 01/07/2018 by Andres Ty MD at OR [facility] Right: Eye BAUSCH & LOMB 08/21/2022 [id number] / [id number] / [id number] Lens Intraoc 22.5 - [id number] - [id number] Implanted:Qty: 1 on 01/16/2018 by Andres Ty MD at OR [facility] Left: Eye BAUSCH & LOMB 06/20/2022 [id number] / [id number] / [id number] documented as of this encounter Advance Directives [...] and were consensually agreed upon. Care Teams Milk And Cream Grader Relationship Specialty Start Date End Date Alok Guzman DO 200 [facility] [place] [address] PCP - General Family Medicine 10/09/22 documented as of this encounter
--- OUTSIDE RECORDS SUMMARY | 2024-07-21 16:09 | External Medical Summary | Summary of Care ---
Author Name Unknown Organization [facility] Address [address] [place] [address] Phone [phone] Care Team Providers Care Project Manager/Design Manager Name Role Phone Alok Guzman DO Primary Care Provider [phone] Reason for Visit * Reason Onset Date Comments Advice 07/03/2024 Encounter Details Date Type Department Care Team (Late st Contact Info) Description 07/03/2024 Telephone Access Center, [place] [address] [facility] *DO NOT REMOVE THIS DEPARTMENT* [place] [address] Services, Scheduling [address] [place] [address] Advice Allergies No known active allergiesdocumented as [...] 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 Please Advise. Thank you. documented in this encounter Plan of Treatment Upcoming Encounters Date Type Department Care Team (Latest Contact Info) Description 07/09/2024 12:29 PM EST Hospital Encounter [facility], Operating Room [facility] [address] [place] [address] Puma Trammell, [address] [place] [address] 07/09/2024 12:29 PM EST - 07/09/2024 1:17 PM EST Surgery [facility], Operating Room [facility] [address] [place] [address] Puma Trammell, [address] [place] [address] EXCISION SOFT TISSUE LESION EXTERNAL AUDITORY 08/06/2024 11:30 AM EST Office Visit Otolaryngology [facility] [address] [place] [address] Heath Painting PA-C [address] [place] [address] 10/09/2024 9:20 AM EDT Office Visit [facility] [address] [place] [address] Alok Guzman, DO [address] [facility] [place] [address] 12/23/2024 8:15 AM EDT Office Visit MOHS Surgery [facility] [place] [address] [place] [address] Mirian Barragan MD 200 [facility] [place] [address] 03/17/2025 10:00 AM EDT Nurse Only Ancillary [facility] [address] [facility] [place] [address] [place], Nurse Annual Wellness [facility] [address] [facility] [place] [address] 05/31/2025 8:30 AM EST Office Visit Dermatology [facility] [address] [place] [address] Param Nolasco MD 200 [facility] [place] [address] Scheduled Procedures Name Priority Associated Diagnoses Date/Ti [...] this encounter Medical Devices Implanted Type Area Cager Operator Device Identifier Shelf Expiration Date Model / Serial / Lot Lens Intraoc 22.5 - [id number] - [id number] Implanted:Qty: 1 on 01/07/2018 by Andres Ty MD at OR [facility] Right: Eye BAUSCH & LOMB 08/21/2022 [id number] / [id number] / [id number] Lens Intraoc 22.5 - [id number] - [id number] Implanted:Qty: 1 on 01/16/2018 by Andres Ty MD at OR [facility] Left: Eye BAUSCH & LOMB 06/20/2022 [id number] / [id number] / [id number] documented as of this encounter Advance Directives [...] and were consensually agreed upon. Care Teams Project Manager/Design Manager Relationship Specialty Start Date End Date Alok Guzman DO 200 [facility] [place] [address] PCP - General Family Medicine 10/09/22 documented as of this encounter
--- OUTSIDE RECORDS SUMMARY | 2024-07-21 16:09 | External Medical Summary | Summary of Care ---
Author Name Unknown Organization [facility] Address [address] [facility] [place] [address] Phone [phone] Care Team Providers Care Digital Media Director Name Role Phone ThomasAlok Kayla HEALY Primary Care Provider [phone] Encounter Details Date Type Department Care Team (Late st Contact Info) Description 04/29/2024 Telephone Otolaryngology [facility] [address] [place] [address] Clarissa Borden PA-C [address] [place] [address] Allergies No known active allergiesdocumented as of this encounter (statuses as of 06/08/2024) Medications CPAP every night at bedtime. Active Multivitamin Adults 50+ Oral Tablet Take by mouth. Active Zinc Picolinate Powder Use as directed. Active documented as of this encounter (statuses as of 06/08/2024) Active Problems Problem Noted Date Diagnosed Date [...] adult 08/12/2015 CPAP (continuous positive airway pressure) [facility] 08/12/2015 documented as of this encounter (statuses as of 06/08/2024) Resolved Problems Problem Noted Date Diagnosed Date [...] as of this encounter (statuses as of 06/08/2024) Immunizations Name Administration Dates Next Due DTWP [...] No 03/13/2024 Does the household have a [facility] source of income? (Household - for ages [...] Industry Job Start Date Job End Date [employer] Not on file Not on file Not on file documented as of this encounter Plan of Treatment Upcoming Encounters Date Type Department Care Team (Latest Contact Info) Description 06/23/2024 2:00 PM EST Office Visit MOHS Surgery [facility] [address] [place] [address] Mirian Barragan MD 200 [facility] [place] [address] 07/03/2024 10:40 AM EST Office Visit Sleep Disorders Ctr [facility] [address] [place] [phone] Laura Nunez, DO [address] [place] [address] 07/09/2024 1:47 PM EST Hospital Encounter [facility], Operating Room [facility] [address] [place] [phone] Puma Trammell, DO [address] [place] [address] 07/09/2024 1:47 PM EST - 07/09/2024 2:35 PM EST Surgery [facility], Operating Room [facility] [address] [place] [phone] Puma Trammell, DO [address] [place] [address] EXCISION SOFT TISSUE LESION EXTERNAL AUDITORY 08/06/2024 11:30 AM EST Office Visit Otolaryngology [facility] [address] [place] [address] Heath Painting PA-C [address] [place] [address] 10/09/2024 9:20 AM EDT Office Visit Family Practice [facility] [address] [place] [address] Alok Guzman, DO [address] [place] [address] 03/17/2025 10:00 AM EDT Nurse Only Ancillary [facility] [place] 200 [facility] [place] [address] [place], Nurse Annual Wellness [facility] 200 [facility] [place] [address] 05/31/2025 8:30 AM EST Office Visit Dermatology [facility] [place] 200 [facility] [place] [address] Param Nolasco MD 200 [facility] [place] [address] Scheduled Procedures Name Priority Associated Diagnoses Date/Ti me EXCISION SOFT TISSUE LESION EXTERNAL AUDITORY Lesion of external ear canal, right 07/09/2024 1:47 PM EST OTOLARYNGOLOGIC EXAMINATION UNDER GENERAL ANESTHESIA Lesion of external ear canal, right 07/09/2024 1:47 PM EST COLONOSCOPY FLEXIBLE PROXIMA L DIAGNOSTIC [...] this encounter Medical Devices Implanted Type Area Youth Care Specialist Device Identifier Shelf Expiration Date Model / Serial / Lot Lens Intraoc 22.5 - [id number] - [id number] Implanted:Qty: 1 on 01/07/2018 by Andres Ty MD at OR [facility] Right: Eye BAUSCH & LOMB 08/21/2022 [id number] / [id number] / [id number] Lens Intraoc 22.5 - [id number] - [id number] Implanted:Qty: 1 on 01/16/2018 by Andres Ty MD at OR [facility] Left: Eye BAUSCH & LOMB 06/20/2022 [id number] / [id number] / [id number] documented as of this encounter Advance Directives [...] and were consensually agreed upon. Care Teams Digital Media Director Relationship Specialty Start Date End Date Alok Guzman DO [address] [place] [address] PCP - General Family Medicine 10/09/22 documented as of this encounter
--- OUTSIDE RECORDS SUMMARY | 2024-07-21 16:10 | External Medical Summary | Summary of Care ---
Author Name Unknown Organization [facility] Address [address] [facility] [place] [address] Phone [phone] Care Team Providers Care Circuit Board Assembler Name Role Phone Alok Guzman DO Primary Care Provider Reason for Visit * Reason Onset Date Comments Appointment 03/17/2024 Encounter Details Date Type Department Care Team (Late st Contact Info) Description 03/17/2024 Telephone Family Practice [facility] [place] 200 [facility] [place] [address] Alok Guzman DO 200 [facility] [place] [address] Appointment Allergies No known active allergiesdocumented as of this encounter (statuses as of 03/25/2024) Medications Medication Sig Dispensed Refills Start Date [...] as of this encounter (statuses as of 03/25/2024) Active Problems Problem Noted Date Diagnosed Date [...] as of this encounter (statuses as of 03/25/2024) Resolved Problems Problem Noted Date Diagnosed Date [...] as of this encounter (statuses as of 03/25/2024) Immunizations Name Administration Dates Next Due DTWP HIB - Dipth/Tet/Whole Cell Pert/HIB 007 Pneumococcal Polysaccharide PPV23 (Pneumovax) Seasonal Influenza, Trivalen t, (IIV3), with Preserv, (Fluzone) 04/14/2009,06/22/2006 TDAP (age 10 and older)(Boostrix) 02/04/2013 [...] encounter Miscellaneous Notes * Telephone Encounter - Nae Grajeda OSA - 03/20/2024 8:30 AM EDT Patient is scheduled for 03/21/24 at [facility] at 02:40 pm to discuss his Bump on right ear. * Telephone Encounter - Harper Bailon RN - 03/17/2024 3:38 PM EDT When patient was in for nurse AWDean last week- he had shown me a "bump" inside his R ear. I saw a growth visible to his Right ear canal near the external area/ opening. No redness, no drainage, patientis denying any itching or pain, but it is growing larger and gets irritated when he tries to clean his ears with a q tip. I discussed with Dr. Guzman who feels patient should be seen for an appointment for eval and to determine if an ENT referral is needed. Scheduling team, Can you please reach out to patient or his to set up next available appt? Thank you! documented in this encounter Plan of Treatment Upcoming Encounters Date Type Department Care Team (Late st Contact Info) Description 04/27/2024 9:00 AM EDT Office Visit Otolaryngology [facility] [address] [place] [address] Heath Painting PA-C [address] [place] [address] 05/18/2024 11:00 AM EDT Office Visit Dermatology [facility] 200 [place] [address] Param Nolasco MD 200 [place] [address] 05/19/2024 9:30 AM EDT Office Visit [facility] [place] [address] Rolan Gamboa MD [address] [place] [address] 07/03/2024 10:40 AM EST Office Visit Sleep Disorders Ctr [facility] [address] [place] [phone] Laura Nunez, DO [address] [place] [address] 10/09/2024 9:20 AM EDT Office Visit Family Practice [facility] [place] [address] [place] [address] Alok Guzman, DO 200 [facility] [place] [address] 03/17/2025 10:00 AM EDT Nurse Only Ancillary [facility] [place] 200 [place] [address] Marixa Nurse Annual Wellness [facility] 200 [facility] [place] [address] Scheduled Procedures Name Priority Associated Diagnoses Date/Ti [...] this encounter Medical Devices Implanted Type Area Automotive Collision Estimator Device Identifier Shelf Expiration Date Model / Serial / Lot Lens Intraoc 22.5 - [id number] - [id number] Implanted:Qty: 1 on 01/07/2018 by Andres Ty MD at OR [facility] Right: Eye BAUSCH & LOMB 08/21/2022 [id number] / [id number] / [id number] Lens Intraoc 22.5 - [id number] - [id number] Implanted:Qty: 1 on 01/16/2018 by Andres Ty MD at OR [facility] Left: Eye BAUSCH & LOMB 06/20/2022 [id number] / [id number] / [id number] documented as of this encounter Advance Directives [...] and were consensually agreed upon. Care Teams Circuit Board Assembler Relationship Specialty Start Date End Date Alok Guzman DO [address] [place] [address] PCP - General Family Medicine 10/09/22 documented as of this encounter
--- OUTSIDE RECORDS SUMMARY | 2024-07-21 16:10 | External Medical Summary | Summary of Care ---
Author Name Unknown Organization [facility] Address [address] [place] [address] Phone [phone] Care Team Providers Care Project Management Consultant Name Role Phone Alok Guzman DO Primary Care Provider Encounter Details Date Type Department Care Team (Latest Contact Info) Description 03/24/2024 12:57 PM EDT - 03/24/2024 11:59 PM EDT Hospital Encounter Radiology Film File [address] [place] [address] Arrived Discharge Disposition: Home - Self Care Allergies [...] 04/27/2024 9:00 AM EDT Office Visit Otolaryngology [facility] 132 [facility] [place] [address] Heath Painting PA-C 132 [facility] [place] [address] 05/18/2024 11:00 AM EDT Office Visit Dermatology [facility] [address] [place] [address] Param Nolasco MD [address] [place] [address] 05/19/2024 9:30 AM EDT Office Visit Urology, [facility] [address] [facility] [place] [address] Rolan Gamboa MD 27 [facility] [place] [address] 07/03/2024 10:40 AM EST Office Visit Sleep Disorders [facility]tr [facility] [place] [phone] Laura Nunez, DO 132 [facility] [place] [address] 10/09/2024 9:20 AM EDT Office Visit Family Practice [facility] [address] [place] [address] Alok Guzman, DO [address] [place] [address] 03/17/2025 10:00 AM EDT Nurse Only Ancillary [facility] [place] [address] [place] [address] [place]a Nurse Annual Wellness [facility] [address] [place] [address] Scheduled Procedures Name Priority Associated Diagnoses Date/Ti [...] this encounter Medical Devices Implanted Type Area Assembler Type Bar And Segment Device Identifier Shelf Expiration Date Model / Serial / Lot Lens Intraoc 22.5 - [id number] - [id number] Implanted:Qty: 1 on 01/07/2018 by Andres Ty MD at OR [facility] Right: Eye BAUSCH & LOMB 08/21/2022 [id number] / [id number] / [id number] Lens Intraoc 22.5 - [id number] - [id number] Implanted:Qty: 1 on 01/16/2018 by Andres Ty MD at OR [facility] Left: Eye BAUSCH & LOMB 06/20/2022 [id number] / [id number] / [id number] documented as of this encounter Procedures Procedure Name Priority Date/Time Associated Diagnosis Comments DERM EXAM - DERM (IMAGES ONLY, NO REPORT) Routine 03/24/2024 12:57 PM EDT Skin neoplasm documented in this encounter Results * DERM EXAM - DERM (IMAGES ONLY, NO REPORT) (03/24/2024 12:57 PM EDT) Narrative Scheduling, Silent - 03/24/2024 12:57 PM EDT This is an imaging study not interpreted or resulted by a [employer]on [employer]er or [employer] contracted radiologist. Radha Raymond PA-C RADIOLOGY (RAD GENERAL) documented in this encounter Advance Directives * [...] were consensually agreed upon. Care Teams Project Management Consultant Relationship Specialty Start Date End Date Alok Guzman DO [address] [place] [address] PCP - General Family Medicine 10/09/22 documented as of this encounter
--- OUTSIDE RECORDS SUMMARY | 2024-07-21 16:10 | External Medical Summary | Summary of Care ---
Author Name Unknown Organization [facility] Address [address] [facility] [address] Phone [phone] Care Team Providers Care Roller Leveler Name Role Phone Alok Guzman DO Primary Care Provider [phone] Reason for Referral * Evaluate & Treat - Unlimited Visits (Within 10 days (routine)) - Authorized Specialty Diagnoses / Procedures Referred By Rory velez Referred To Contact Otolaryngology Diagnoses Skin neoplasm [facility]ha Raymond [facility] [address] [facility] [address] Referral ID Status Reason Start Date Expiration Date Visits Requested Visits Authorized [id number] Authorized Specialty Services Required 03/24/2024 [id number] Question Answer Referral Priority Within 10 days (routine) Where should this appointment be scheduled? [facility] Reason for Referral Other Using "other" may delay scheduling. Only use it if no appropriate choice exists. Acknowledge Please provide more details: Ear lesion x 2 years growing Comments Prefers [place] Reason for Visit * Reason Comments NEW PATIENT Skin lesion R ear x 2 years. Growing. Occasionally painful. * Evaluate & Treat - Unlimited Visits (Within 10 days (routine)) - Authorized Specialty Diagnoses / Procedures Referred By Rory velez Referred To Contact Dermatology Diagnoses Lesion of skin of right ear Patricia Woodall DO [address] [place] [address] Referral ID Status Reason Start Date Expiration Date Visits Requested Visits Authorized [id number] Authorized Specialty Services Required 03/21/2024 [id number] Encounter Details Date Type Department Care Team (Late st Contact Info) Description 03/24/2024 12:30 PM EDT Office Visit Dermatology, [facility] DickinsonKarly [address] [place] [address] Radha Raymond PA-C [address] [place] [address] Skin neoplasm* Allergies No known active allergiesdocumented as of this encounter (statuses as of 03/24/2024) Medications Medication Sig Dispensed Refills Start Date [...] as of this encounter (statuses as of 03/24/2024) Active Problems Problem Noted Date Diagnosed Date [...] as of this encounter (statuses as of 03/24/2024) Resolved Problems Problem Noted Date Diagnosed Date [...] as of this encounter (statuses as of 03/24/2024) Immunizations Name Administration Dates Next Due DTWP [...] No 03/13/2024 Does the household have a [facility] source of income? (Household - for ages [...] as of this encounter Progress Notes * Radha Raymond PA-C - 03/24/2024 12:30 PM EDT SUBJECTIVE: CC: Chief Complaint Patient presents with NEW PATIENT Skin lesion R ear x 2 years. Growing. Occasionally painful. HPI: Edmond Bear is a 73 year old male seen at the request of Patricia Woodall DO for evaluation and treatment of ear lesion. Last dermatology clinic visit: 12/20/20 with Veronica NIÑO. Lesion in right ear canal for approx 2 years-growing and occasionally painful. No bleeding. 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 Tena Patient Active Problem List Diagnosis Obstructive sleep apnea of adult CPAP (continuous positive airway pressure) dependence Preauricular sinus Hx of nonmelanoma skin cancer Morbid obesity due to excess calories (HCC) Body mass index (BMI) of 40.0 to 44.9 in adult (HCC) SOCIAL HISTORY: Social History Tobacco Use Smoking status: Never Smokeless tobacco: Never Substance Use Topics Alcohol use: No Vaping/E-Cigarette Use Vaping/E-Cigarette Use Never User Vaping/E-Cigarette Substances Vaping/E-Cigarette Devices MEDICATIONS: Current Outpatient Medications Medication Sig Dispense Refill [...] No current facility-administered medications for this visit. ALLERGIES: Patient has no known allergies. OBJECTIVE: GEN: Healthy, alert, no distress, appears oriented, pleasant, and cooperative. PSYCH: Appropriate mood and affect, alert SKIN: Problem focused exam to the right ear canal was completed and are within normal limits with the following exceptions: 1. Right ear canal - approx 5mm pink papule with telangectasia ASSESSMENT/PLAN: Skin neoplasm (Primary) - DERM EXAM - DERM (IMAGES ONLY, NO REPORT) - ADULT/PEDS OTOLARYNGOLOGY REFERRAL OP -Due to location and difficulty of just examining lesion, recommend evaluation and biopsy by ENT. Follow-up: Return if symptoms worsen or fail to improve. | Check-out note: Schedule for [facility]SE in [facility] or [facility] when available. Patient alone today. Follow-up: PRN, recommend FBSE due to hx of NMSC-he prefers being scheduled in [place] or [facility]. Photos taken, patient consented to photos. Applicable photos (if any) and chart reviewed by Dr. Mohinder Rea. The patient was encouraged to contact me with any further questions or concerns. Radha Raymond PA-C 03/24/2024 documented in this encounter Nursing Notes * Kelly Steinberg, MED ASSIST - 03/24/2024 12:43 PM EDT Chief Complaint Patient presents with NEW PATIENT Skin lesion R ear x 2 years. Growing. Occasionally painful. documented in this encounter Plan of Treatment Upcoming Encounters Date Type Department Care Team (Late st Contact Info) Description 05/18/2024 11:00 AM EDT Office Visit Dermatology [facility] [address] [facility] [place] [address] Param Nolasco MD [address] [facility] [place] [address] 05/19/2024 9:30 AM EDT Office Visit Urology, [facility] [address] [facility] [place] [address] Rolan Gamboa MD [address] [place] [id number] 07/03/2024 10:40 AM EST Office Visit [facility] [place] [address] [place] [phone] Laura Nunez, DO [address] [place] [address] 10/09/2024 9:20 AM EDT Office Visit Family Practice [facility] [place] [address] [place] [address] Alok Guzman, DO [address] [facility] [place] [address] 03/17/2025 10:00 AM EDT Nurse Only Ancillary [facility] [place] [address] [facility] [place] [address] Marixa, Nurse Annual Wellness [facility] [address] [facility] [place] [id number] Scheduled Procedures Name Priority Associated Diagnoses Date/Ti [...] this encounter Medical Devices Implanted Type Area Obstetrics Tech Device Identifier Shelf Expiration Date Model / Serial / Lot Lens Intraoc 22.5 - [id number] - [id number] Implanted:Qty: 1 on 01/07/2018 by Andres Ty MD at OR [facility] Right: Eye [employer] 08/21/2022 [id number] / [id number] / [id number] Lens Intraoc 22.5 - [id number] - [id number] Implanted:Qty: 1 on 01/16/2018 by Andres Ty MD at OR [facility] Left: Eye [employer] LOM[employer] 06/20/2022 [id number] / [id number] / [id number] documented as of this encounter Procedures Procedure [...] study not interpreted or resulted by a [facility] or [facility] contracted radiologist. Radha Raymond PA-C RADIOLOGY (RAD GENERAL) documented in this encounter Visit Diagnoses Diagnosis Skin neoplasm- Primary Neoplasm of unspecified nature of bone, soft tissue, and skin documented in this encounter Advance Directives * Full Code (Latest Code Status on File) Date Activated Date Inactivated Comments 01/16/2018 11:43 AM 01/16/2018 6:14 PM This order reflects the patients wishes and were consensually agreed upon. * Full Code Date Activated Date Inactivated Comments 01/07/2018 11:40 AM 01/07/2018 5:31 PM This order reflects the patients wishes and were consensually agreed upon. Care Teams Roller Leveler Relationship Specialty Start Date End Date Alok Guzman DO [address] [place] [address] PCP - General Family Medicine 10/09/22 documented as of this encounter
--- OUTSIDE RECORDS SUMMARY | 2024-07-21 16:10 | External Medical Summary | Summary of Care ---
Author Name Unknown Organization [facility] Address [address] [facility] [address] Phone [phone] Care Team Providers Care Fermentation Engineer Name Role Phone DomoAlok jeter Primary Care Provider Reason for Referral * Evaluate & Treat - Unlimited Visits (Within 10 days (routine)) - Authorized Specialty Diagnoses / Procedures Referred By Rory velez Referred To Contact Dermatology Diagnoses Lesion of skin of right ear Patricia Woodall DO [address] [place] [address] Referral ID Status Reason Start Date Expiration Date Visits Requested Visits Authorized [id number] Authorized Specialty Services Required 03/21/2024 999 [id number] Question Answer Referral Priority Within 10 days (routine) Where should this appointment be scheduled? [facility] Are you referring the patient for Mohs Surgery and have a current positive skin cancer biopsy result? No What is the reason for the patient referral? Rash/Skin Check/Eval of Lesion or Mole Reason for Visit * Reason Comments Acute Encounter Details Date Type Department Care Team (Late st Contact Info) Description 03/21/2024 2:40 PM EDT Office Visit Family [facility] [address] [facility] [place] [address] Patricia Woodall DO [address], [place] [id number] Lesion of skin of right ear* Allergies No known active allergiesdocumented as of this encounter (statuses as of 03/21/2024) Medications Medication Sig Dispensed Refills Start Date [...] as of this encounter (statuses as of 03/21/2024) Active Problems Problem Noted Date Diagnosed Date [...] as of this encounter (statuses as of 03/21/2024) Resolved Problems Problem Noted Date Diagnosed Date [...] as of this encounter (statuses as of 03/21/2024) Immunizations Name Administration Dates Next Due DTWP HIB - Dipth/Tet/Whole Cell Pert/HIB 007 Pneumococcal Polysaccharide PPV23 (Pneumovax) Seasonal Influenza, Trivalen t, (IIV3), with Preserv, (Fluzone) 04/14/2009,06/22/2006 TDAP (age 10 and older)(Boostrix) 02/04/2013 documented as of this encounter Social History Tobacco Use Types Packs/Day Years Used Date Smoking Tobacco: Never Smokeless Tobacco: Never Tobacco Cessation:Counseling Given: Yes Alcohol Use Standard Drinks/Week Comments No 0 [...] Sign Reading Time Taken Comments Blood Pressure 140/78 03/21/2024 2:40 PM EDT Pulse 64 03/21/2024 2:40 PM EDT Temperature 36.1 C (96.9 F) 03/21/2024 2:40 PM ED T Respiratory Rate 12 03/21/2024 2:40 PM EDT Oxygen Saturation - - Inhaled Oxygen Concentration - - Weight 111.9 kg (246 lb 12.8 oz) 03/21/2024 2:40 PM EDT Height 171 cm (5' 7.32") 03/21/2024 2:40 PM EDT Body Mass Index 38.29 03/21/2024 2:40 PM EDT documented in this encounter Progress Notes * Patricia Woodall, - 03/21/2024 2:43 PM EDT Subjective: Edmond Bear is a 73 year old male. Chief Complaint Patient presents with Acute HPI: 73 year old male here today for lump on the R ear he has had for years. Made an appt today as he was worried about it. Has gotten bigger unclear if this was recent. No drainage. PHM: Patient Active Problem List Diagnosis Obstructive sleep apnea of adult CPAP (continuous positive airway pressure) dependence Preauricular sinus Hx of nonmelanoma skin cancer Morbid obesity due to excess calories (HCC) Body mass index (BMI) of 40.0 to 44.9 in adult (HCC) Current Outpatient Medications Medication Sig Dispense Refill [...] of patient's allergies indicates: No Known Allergies Objective: BP 140/78 | Pulse 64 | Temp 36.1 C (96.9 F) | Resp 12 | Ht 1.71 m (5' 7.32") | Wt 111.9 kg (246lb 12.8 oz) | BMI 38.29 kg/m | BSA 2.31 m Physical Exam: General: alert, healthy, and no distress Heart: regular rate & rhythm, no murmur, and no gallops Lungs: chest symmetric with normal AP diameter, no chest deformities noted, no chest wall tenderness, lungs clear to auscultation Skin: right external ear, lump that seems consistent with a sebaceous cyst ASSESSMENT/PLAN: Lesion of skin of right ear (Primary) - DERMATOLOGY REFERRAL OP Cystic lesion, to see dermatology in regards to removal. Check-out note: Dermatology Patricia Woodall DO documented in this encounter Nursing Notes * Samantha Sanchez LPN - 03/21/2024 2:40 PM EDT States lump inside right ear, painful at times. documented in this encounter Plan of Treatment Upcoming Encounters Date Type Department Care Team (Late st Contact Info) Description 03/24/2024 12:30 PM EDT Office Visit Dermatology, [facility] Yanez [address] [place] [address] Radha Raymond PA-C [address] [place] [address] 05/19/2024 9:30 AM EDT Office Visit Urology, [facility] [address] [facility] [place] [address] Rolan Gamboa MD [address] [place] [address] 07/03/2024 10:40 AM EST Office Visit Sleep Disorders Ctr [facility] [address] [facility] [place] [phone] Laura Nunez, DO [address] [facility] [place] [address] 10/09/2024 9:20 AM EDT Office Visit Family Practice [facility] [address] [facility] [place] [address] Alok Guzman, DO [address] [facility] [place] [address] 03/17/2025 10:00 AM EDT Nurse Only Ancillary [facility] [address] [facility] [place] [address] Marixa, Nurse Annual Wellness [address] [place] [address] Scheduled Procedures Name Priority Associated Diagnoses Date/Ti me COLONOSCOPY FLEXIBLE PROXIMAL DIAGNOSTIC Recall History of colon polyps Scheduled Referrals Name Type Priority Associated Diagnoses Orde r Schedule DERMATOLOGY REFERRAL OP Referral Within 10 days (routine) Lesion of skin of right ear Ordered: 03/21/2024 Health Maintenance Due Date Last Done Comments [...] this encounter Medical Devices Implanted Type Area Signals Analyst Device Identifier Shelf Expiration Date Model / Serial / Lot Lens Intraoc 22.5 - [id number] - [id number] Implanted:Qty: 1 on 01/07/2018 by Andres Ty MD at OR [facility] Right: Eye [employer]OM[employer] 08/21/2022 [id number] / [id number] / [id number] Lens Intraoc 22.5 - [id number] - [id number] Implanted:Qty: 1 on 01/16/2018 by Andres Ty MD at OR [facility] Left: Eye BAUSCH [employer] LOMB 06/20/2022 [id number] / [id number] / [id number] documented as of this encounter Visit Diagnoses Diagnosis Lesion of skin of right ear- Primary documented in this encounter Advance Directives [...] and were consensually agreed upon. Care Teams Fermentation Engineer Relationship Specialty Start Date End Date Alok Guzman DO [address] [place] [address] PCP - General Family Medicine 10/09/22 documented as of this encounter
--- OUTSIDE RECORDS SUMMARY | 2024-07-21 16:10 | External Medical Summary | Summary of Care ---
Author Name Unknown Organization [facility] Address [address] [facility] [place] [address] Phone [phone] Care Team Providers Care Spanish Lecturer Name Role Phone Alok Guzman DO Primary Care Provider [phone] Encounter Details Date Type Department Care Team (Late st Contact Info) Description 12/09/2023 Telephone Family Practice [facility] [place] [address] [place] [address] Alok Guzman DO 200 [facility] [place] [address] Allergies No known active allergiesdocumented as of this encounter (statuses as of 03/09/2024) Medications Medication Sig Dispensed Refills Start Date [...] as of this encounter (statuses as of 03/09/2024) Active Problems Problem Noted Date Diagnosed Date [...] as of this encounter (statuses as of 03/09/2024) Resolved Problems Problem Noted Date Diagnosed Date [...] as of this encounter (statuses as of 03/09/2024) Immunizations Name Administration Dates Next Due DTWP HIB - Dipth/Tet/Whole Cell Pert/HIB 007 Pneumococcal Polysaccharide PPV23 (Pneumovax) Seasonal Influenza, Split, IIV3, With Preserve, Inj 04/14/2009,06/22/2006 TDAP (age 10 and older)(Boostrix) 02/04/2013 documented as of this encounter Social History Tobacco Use Types Packs/Day Years Used Date Smoking Tobacco: Never Smokeless Tobacco: Never Alcohol Use Standard Drinks/Week Comments No 0 (1 standard drink = 0.6 oz pur e alcohol) PHQ-2 Answer Date Recorded PHQ Adult Total Score 0 12/21/2022 Hunger Vital Sign Answer Date Recorded Within the past 12 months, y ou worried that your food would run out before you got the money to buy more. Never true 12/22/19 23 Within the past 12 months, t he food you bought just didn't last and you didn't have money to get more. Never true 12/21/2022 Utilities Answer Date Recorded Do you have trouble paying y our heating, water, or electric bill? (Adult - for ages 18 years and over) Not on file 01/07/2024 Is your family able to pay t he heat, water, or electric bill? (Household - for ages 0-17 years) Not on file 01/07/2024 Does your family have access to good internet? (Household - for ages 0-17 years) Not on file 01/07/2024 Social Connections Answer Date Recorded How often do you feel lonely or isolated from those around you? (Adult - for ages 18 years and over) Not on file 01/07/2024 Sex and Gender Information Value Date Recorded [...] Care Team (Late st Contact Info) Description 03/13/2024 10:00 AM EDT Nurse Only Ancillary [facility] [address] [place] [address] Marixa, Nurse Annual Wellness [facility] [address] [place] [address] 05/19/2024 9:30 AM EDT Office Visit Urology, [facility] [address] [facility] [place] [address] Rolan Gamboa MD [address] [address] 07/03/2024 10:40 AM EST Office Visit Sleep Disorders Ctr [facility] [address] [place] [phone] Laura Nunez, DO [address] [place] [address] 10/09/2024 9:20 AM EDT Office Visit [facility] [address] [facility] [place] [address] Alok Guzman, DO [address] [facility] [place] [address] Scheduled Procedures Name Priority Associated Diagnoses Date/Ti me COLONOSCOPY FLEXIBLE PROXIMAL DIAGNOSTIC Recall History of colon polyps Health Maintenance Due Date Last Done Comments Fecal Occult Blood Test 1997 Sigmoidoscopy 1997 Zoster Vaccines (1 of 2) 2002 Pneumococcal Vaccine: 65+ Years (2 of 2 - PCV) 2017 04/13/2009 Cologuard 01/07/2021 01/07/2018 DTaP,Tdap,and Td Vaccines (3 - Td or Tdap) 02/04/2023 02/04/2013, 03/20/2007 COVID-19 Vaccine (1 - season) 2023 Adult Wellness Visit 12/22/2023 12/21/2022, 03/21/2022, 03/20/2021 Depression Screening 12/22/2023 12/21/2022, 12/16/2014 (Discussed) Influenza Vaccine (FLU shot) (#1) 2024 04/14/2009, 06/22/2006, 07/11/2001 Colonoscopy 06/13/2025 06/13/2020, 05/23, 12/11/2005 Colorectal Cancer Screening 06/13/2025 Lipid Panel 03/09/2027 03/09/2022, 02/20, 12/17/2014, Additional history exists RETIRED - COLONOSCOPY-EVERY 5 YRS AGES 18-100 Discontinued 06/13/2020, 06/13/2020, 12/11/2005 HPV (Gardasil) Vaccine Aged Out No lo nger eligible based on patient's age to complete this topic Hepatitis B Vaccine Aged Out No longe r eligible based on patient's age to complete this topic MENINGOCOCCAL (MENACTRA/MENVEO) Aged Out No longer eligible based on patient's age to complete this topic documented as of this encounter Medical Devices Implanted Type Area Steam Meter Reader Device Identifier Shelf Expiration Date Model / Serial / Lot Lens Intraoc 22.5 - [id number] - [id number] Implanted:Qty: 1 on 01/07/2018 by Andres Ty MD at OR [facility] Right: Eye [employer] 08/21/2022 [id number] / [id number] / [id number] Lens Intraoc 22.5 - [id number] - [id number] Implanted:Qty: 1 on 01/16/2018 by Andres Ty MD at OR [facility] Left: Eye BAUSCH [employer] LOMB 06/20/2022 [id number] / [id number] / [id number] documented as of this encounter Advance Directives [...] and were consensually agreed upon. Care Teams Spanish Lecturer Relationship Specialty Start Date End Date Alok Guzman DO [address] [place] [address] PCP - General Family Medicine 10/09/22 documented as of this encounter
--- OUTSIDE RECORDS SUMMARY | 2024-07-21 16:10 | External Medical Summary | Summary of Care ---
Author Name Unknown Organization [facility] Address [address] [facility] [address] Phone [phone] Care Team Providers Care Pension Agent Name Role Phone Alok Guzman DO Primary Care Provider [phone] Reason for Referral * Evaluate & Treat - Unlimited Visits (Within 10 days (routine)) - Authorized Specialty Diagnoses / Procedures Referred By Rory velez Referred To Contact Otolaryngology Diagnoses Skin neoplasm [facility]ha Raymond [facility] [address] [facility] [place] [address] Referral ID Status Reason Start Date Expiration Date Visits Requested Visits Authorized [id number] Authorized Specialty Services Required 03/24/2024 999 999 Question Answer Referral Priority Within 10 days (routine) Where should this appointment be scheduled? [facility] Reason for Referral Other Using "other" may delay scheduling. Only use it if no appropriate choice exists. Acknowledge Please provide more details: Ear lesion x 2 years growing Comments Prefers [place] Reason for Visit * Reason Comments NEW PATIENT Skin lesion R ear x 2 years. Growing. Occasionally painful. * Evaluate & Treat - Unlimited Visits (Within 10 days (routine)) - Authorized Specialty Diagnoses / Procedures Referred By Rory velez Referred To Contact Dermatology Diagnoses Lesion of skin of right ear Patricia Woodall DO [address] [place] [address] Referral ID Status Reason Start Date Expiration Date Visits Requested Visits Authorized [id number] Authorized Specialty Services Required 03/21/2024 999 [id number] Encounter Details Date Type Department Care Team (Late st Contact Info) Description 03/24/2024 12:30 PM EDT Office Visit Dermatology, [facility] [address] [place] [phone] Radha Raymond PA-C [address] [place] [address] Skin neoplasm* Allergies No known active allergiesdocumented [...] 007 Pneumococcal Polysaccharide PPV23 (Pneumovax) 04/13/2009 Seasonal Influenza, Trivalen t, (IIV3), with Preserv, (Fluzone) 04/14/2009,06/22/2006,07/11/2001 TDAP (age 10 and older)(Boostrix) [...] No 03/13/2024 Does the household have a surgeons choice medical centerr source of income? (Household - for ages [...] as of this encounter Progress Notes * Mohinder Rea MD - 03/24/2024 2:53 PM EDT I have seen and examined via teledermatology review of chart note and photos the patient with Radha Raymond PA-C. I have reviewed and agree with the assessment and plan. Difficult from images to easily visualize/diagnose lesion; agree with ENT referral. 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 Patient alone today. 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 Photos taken, patient consented to photos. Applicable photos (if any) and chart reviewed by Dr. Mohinder Rea. The patient was encouraged to contact me with any further questions or concerns. Radha Raymond PA-C 03/24/2024 documented in this encounter Nursing Notes * Kelly Steinberg MED ASSIST - 03/24/2024 12:43 PM EDT Chief Complaint Patient presents with NEW PATIENT Skin lesion R ear x 2 years. Growing. Occasionally painful. documented in this encounter Plan of Treatment Upcoming Encounters Date Type Department Care Team (Late st Contact Info) Description 05/18/2024 11:00 AM EDT Office Visit Dermatology [facility] [address] [place] [address] Param Nolasco MD [address] [facility] [place] [phone] 05/19/2024 9:30 AM EDT Office Visit Urology, [facility] [address] [facility] [place] [address] Rolan Gamboa MD [address] [place] [address] 07/03/2024 10:40 AM EST Office Visit Sleep Disorders Ctr [facility] [address] [facility] [place] [id number] Laura Nunez DO [address] [facility] [place] [address] 10/09/2024 9:20 AM EDT Office Visit Family Practice [facility] [address] [facility] [place] [phone] Alok Guzman, DO [address] [facility] [place] [phone] 03/17/2025 10:00 AM EDT Nurse Only Ancillary [facility] [address] [facility] [place] [address] [place], Nurse Annual [facility] [address] [place] [phone] Scheduled Procedures Name Priority Associated Diagnoses Date/Ti [...] this encounter Medical Devices Implanted Type Area Hr Receptionist Device Identifier Shelf Expiration Date Model / Serial / Lot Lens Intraoc 22.5 - [id number] - [id number] Implanted:Qty: 1 on 01/07/2018 by Andres Ty MD at [facility] Right: Eye [employer] 08/21/2022 [id number] / [id number] / [id number] Lens Intraoc 22.5 - [id number] - [id number] Implanted:Qty: 1 on 01/16/2018 by Andres Ty MD at OR [facility] Left: Eye [employer] 06/20/2022 [id number] / [id number] / [id number] documented as of this encounter Procedures Procedure [...] interpreted or resulted by a [facility] or [facility] contracted radiologist. Radha Raymond PA-C RADIOLOGY ([employer] [facility]) documented in this encounter Visit Diagnoses [...] and were consensually agreed upon. Care Teams Pension Agent Relationship Specialty Start Date End Date Alok Guzman DO [address] [place], [place] [address]justen Carias [place], [place] [address] PCP - General Family Medicine 10/09/22 documented as of this encounter
--- OUTSIDE RECORDS SUMMARY | 2024-07-21 16:10 | External Medical Summary | Summary of Care ---
Author Name Unknown Organization [facility] Address [address] [place] [address] Phone [phone] Care Team Providers Care Soil Science Professor Name Role Phone DomoAlok jeter DO Primary Care Provider Reason for Visit * Reason Comments Adult Annual Wellness Visit, Subsequent Visit Encounter Details Date Type Department Care Team (Late st Contact Info) Description 03/13/2024 10:00 AM EDT Nurse Only Ancillary [facility] [address] [place], [place] [address] [place], Nurse Annual Wellness Scenery [address] [place] [address] Adult Annual Wellness Visit, Subsequent Visit Allergies No known active allergiesdocumented as of this encounter (statuses as of 03/13/2024) Medications Medication Sig Dispensed Refills Start Date [...] as of this encounter (statuses as of 03/13/2024) Active Problems Problem Noted Date Diagnosed Date [...] as of this encounter (statuses as of 03/13/2024) Resolved Problems Problem Noted Date Diagnosed Date [...] as of this encounter (statuses as of 03/13/2024) Immunizations Name Administration Dates Next Due DTWP [...] money to buy more. Never true 12/22/19 Within the past 12 months, t he [...] Sign Reading Time Taken Comments Blood Pressure 124/82 03/13/2024 10:09 AM EDT Pulse 71 03/13/2024 10:09 AM EDT Temperature 36.6 C (97.8 F) 03/13/2024 10:09 AM E DT Respiratory Rate - - Oxygen Saturation 95% 03/13/2024 10:09 AM EDT Inhaled Oxygen Concentration - - Weight 108.9 kg (240 lb) 03/13/2024 10:09 AM EDT Height 171 cm (5' 7.32") 03/13/2024 10:09 AM EDT Body Mass Index 37.23 03/13/2024 10:09 AM EDT documented in this encounter Patient Instructions * Patient Instructions* Harper Bailon RN - 03/13/2024 10:12 AM EDT Patient Instructions - Fall Prevention (This education is for all patients over 65 regardless of symptoms) Remember to take your current medications as prescribed. In order to prevent falls, you are encouraged to: Exercise Utilize assistive/adaptive devices Avoid multifocal lenses when walking Avoid hazards in home Maintain a regular toileting schedule Any questions please contact our office. Preventing Falls in the Home (This education is for all patients over 65 regardless of symptoms) As you get older, falls are more likely. Thats because your reaction time slows. Your muscles and joints may also get stiffer, making them less flexible. Illness, medications, and vision changes can also affect your balance. A fall could leave you unable to live on your own. To make your home safer, follow these tips: Floors Put nonskid pads under area rugs Remove throw rugs Replace worn floor coverings Tack carpets firmly to each step on carpeted stairs. Put nonskid strips on the edges of uncarpeted stairs Keep floors and stairs free of clutter and cords Arrange furniture so there are clear pathways Clean up any spills right away Bathrooms Install grab bars in the tub or shower Apply nonskid strips or put a nonskid rubber mat in the tub or shower Sit on a bath chair to bathe Use bathmats with nonskid backing Lighting Keep a flashlight in each room Put a nightlight along the pathway between the bedroom and the bathroom Brian Patient Education Copyright 2008 - 2010 Brian except where otherwise noted Preventing Falls: Exercises to Improve Balance, Flexibility, Strength, and Staying Power (This education is for all patients over 65 regardless of symptoms) Certain types of exercises may help make you less likely to fall. Try the ones below. Or do other exercises that your healthcare provider suggests. Depending on your health, you may need to start slowly. Dont let that stop you. Even small amounts of exercise can help you. Be sure to talk to yourhealthcare provider before starting any exercise program. Improve Balance Many types of exercise can help improve balance. Justin chi and yoga are good examples. Heres another one to try. You can do it anytime and almost anywhere. Stand next to a counter or solid support. Push yourself up onto your tiptoes. Hold for 5 seconds. If you start to lose your balance, hold on to the counter. Rest and repeat 5 times. Work up to holding for 20 to 30 seconds, if you can. Increase Flexibility Being more flexible makes it easier for you to move around safely. Try exercises like the seated hamstring stretch. Sit in a chair and put one foot on a stool. Straighten your leg and reach with both hands down either side of your leg. Reach as far down your leg as you can. Hold for about 20 seconds. Go back to the starting position. Then repeat 5 times. Switch legs. Build Strength Resistance exercises help build strength. You can do them without equipment. Or you can use weights, elastic bands, or special machines. One such exercise is called the biceps curl. You can hold a 1 pound weight or even a can of soup. Do this exercise at least 3 times a week. Strive for everyday. Sit up straight in a chair. Keep your elbow close to your body and your wrist straight. Bend your arm, moving your hand up to your shoulder. Then slowly lower your arm. Repeat 5 times. Switch to the other arm. Build Your Staying Power Aerobic exercises make your heart and lungs stronger so you can keep moving longer. Walking and swimming are two of the best types of exercises you can do. Using a stationary bike is great, too. Find an aerobic exercise that you enjoy. Start slowly and build up. Even 5 minutes is helpful. Aimfor a goal of 30 minutes, at least 3 times a week. You dont have to do 30 minutes in one session. Break it up and walk a little throughout the day. More Helpful Tips Start easy. Slowly work up to doing more. Talk with your healthcare provider about the best exercises for you. Call senior centers or health clubs about exercise programs. If needed, have a family member watch you walk every so often to check your stability. Exercise with a friend. Choose an activity you both enjoy. Try exercises that you can do anytime, anywhere. Here are two examples. Have someone with you when you first try these: Practice walking by placing one foot right in front of the other. Stand up and sit down 10 times. Repeat this throughout the day. Brian Patient Education Copyright 2008 - 2010 Brian except where otherwise noted. Preventing Falls: Moving Safely Using a Cane or Walker (This education is for all patients over 65 regardless of symptoms) Keep the cane away from your feet so you dont trip. A walking aid, such as a cane or walker, can help you stay more independent and avoid falls. Remember to keep your walking aid within easy reach when youre in a chair or in bed. And learn how to use it safely so you dont injure yourself. Using a Cane If you have a stronger side, hold the cane on that side. Get your balance. Move the cane and your weaker leg forward. Support your weight on both the cane and your weaker side. Step with your stronger leg. Start again from step 1. If youre using a folding walker, be sure you know how to lock it open. Check that its locked open before each use. Using a Walker Roll the walker (or lift it, if youre using one without wheels) forward about 12 inches. Step forward with your weaker leg first. Use the walker to help keep your balance. Bring your other foot forward to the center of the walker. Start again from step 1. Helpful Tips Check with your healthcare provider about the right walking aid to use. Ask about a walker with a seat attached. Check the tips of your cane or walker to make sure they have nonskid covers. Move slowly from room to room. Dont palmer. Sit down to get dressed. Use a bin pack or backpack to keep your hands free. Get help for jobs that mean climbing, even on a stepstool. Brian Patient Education Copyright 2008 - 2010 Brian except where otherwise noted. Treating Urinary Incontinence in Men (This education is for all patients over 65 regardless of symptoms) You can't always control the release of urine. You may leak urine. Or you may not be able to hold your urine until you can get to a bathroom. This is called urinary incontinence. The problem can be managed. Talk to your doctor about your treatment options. Taking Medications Prescription medications may help you. They may: Help the sphincter to work better. (This is the muscle that closes to keep urine from leaking out of the bladder.) Help stop the bladder from hardik too often to push urine out. Help the bladder muscles contract with more force. Help relax the sphincter muscle and allow urine to flow more freely. Making Changes to Your Routine Certain changes in your daily routine may help. These include: Avoiding caffeine and alcohol. Using timed voiding. This is following a schedule for drinking fluids and urinating. Doing Kegel exercises daily. These exercises involve tightening the muscles in your sphincter and around your bladder to help strengthen them. Your doctor can explain how to do them. Using a Catheter A catheter is a narrow tube that is inserted through the urethra into the bladder. It drains urine.A condom catheter covers the penis. It channels urine into a collection bag. It is worn most of thetime. Intermittent catheterization means inserting a catheter to drain the bladder, then removing it. This is done on a regular schedule. Having Surgery If other options don't work, surgery may be recommended. If surgery is an option, your healthcare provider can discuss it with you and explain its risks and benefits. Healing After Prostate Surgery Surgery on the prostate gland can cause incontinence. Most often, the incontinence is only for a short time. It clears up when healing is complete. Very rarely, prostate surgery can result in permanent incontinence. Hi Mr. Bear, As your primary care physician, I know that regular visits with my patients who have several chronic conditions can go a long way in helping you stay healthy. Many times, the clinic team and I are in touch with you and/or other care team members between office visits to adjust medications, discuss any changes in your health, and review our care plan to make sure it is still meeting your needs. I am dedicated to helping you take a more active role in your overall care. It is important that there are resources available to you, so I created a personalized plan of care with a Health Calendar for you, which is included on the next page of this letter. Below is a list that summarizes your electronic health record: Health Maintenance Due: Health Maintenance Due Topic Date Due Zoster Vaccines (1 of 2) Never done Pneumococcal Vaccine: 65+ Years (2 of 2 - PCV) 2017 DTaP,Tdap,and Td Vaccines (3 - Td or Tdap) 02/04/2023 COVID-19 Vaccine ( - 2022-24 season) Never done Adult Wellness Visit 12/22/2023 Current Medication List: (as of Visit date not found (in office), Visit date not found (telemedicine) ) Current Outpatient Medications Medication Sig Dispense Refill [...] No current facility-administered medications for this visit. Current List of Allergies: (as of Visit date not found (in office), Visit date not found (telemedicine) ) Review of patient's allergies indicates: No Known Allergies Most Recent Lab Results: Results for orders placed or performed in visit on 07/24/23 COMPREHENSIVE METABOLIC PANEL Result Value Ref Range BUN 20 6 - 20 mg/dL Creatinine 1.1 0.6 - 1.2 mg/dL Estimated Glomerular Filtration Rate 73 >=60 mL/min Sodium 142 135 - 146 mmol/L Potassium 4.1 3.5 - 5.1 mmol/L Chloride 105 98 - 107 mmol/L CO2 27 22 - 32 mmol/L Anion Gap 10 7 - 15 mmol/L Glucose 100 70 - 120 mg/dL Albumin 4.4 3.8 - 5.0 g/dL AST 19 10 - 50 U/L Alkaline Phosphatase 65 35 - 130 U/L Bilirubin, Total 0.4 <=1.2 mg/dL Calcium 9.5 8.4 - 10.2 mg/dL Protein 6.7 6.0 - 8.3 g/dL ALT 22 10 - 50 U/L PSA Result Value Ref Range PSA 2.88 <4.10 ng/mL Sincerely, Alok Guzman, 03/13/2024 [facility] Calendar (as of Visit date not found (in office), Visit date not found (telemedicine) ) Care needs Care needs Last completed Due next Zoster (Shingles) Vaccine (1 of 2) --- Never done Pneumonia vaccine (2 of 2 - PCV) 04/13/2009 2017 Diphtheria, tetanus & pertussis vaccines (3 - Td or Tdap) 02/04/2013 02/04/2023 COVID-19 Vaccine (1 - 2022- season) --- Never done Adult Wellness Visit 12/21/2022 12/22/2023 Flu vaccine (recommended) (1) 04/14/2009 03/22/2024 Colorectal cancer screening (colonoscopy 10 years, sigmoidoscopy 5 years, Cologuard 3 years, stool sample 1 year) 06/13/2020 06/13/2025 Lipid (cholesterol) disorder screening 03/09/2022 03/09/2027 As you look over the recommended services, be sure to check with your insurance company to determine what's covered. [employer] is a great tool that helps you review your medical record online, including test results, doctor notes and your health summary. You can also schedule appointments with me and other members of your care team, request prescription refills and ask for advice related to your medical conditions at [email or web address]. documented in this encounter Progress Notes * Harper Bailon RN - 03/13/2024 10:12 AM EDT Adult Annual Wellness Visit: Edmond Bear is a 73 year old male who presents for an Adult Annual Wellness Visit. Depression Screening: Did the patient complete the screening questionnaire for Depression? Yes Is the patient's total score for Depression 15 or greater? No, no further intervention needed, unless requested by patient. Did the patient answer positively to the suicide question? No, no further intervention needed, unless requested by patient. In general, compared to other people your age, what would you say that your health is? Good Ht Readings from Last 1 Encounters: 03/13/24 1.71 m (5' 7.32") Wt Readings from Last 1 Encounters: 03/13/24 108.9 kg (240 lb) Body Mass Index: BMI Greater than 30 Body mass index is 37.23 kg/m. BP Readings from Last 1 Encounters: 03/13/24 124/82 Medical/Surgical/Family History Reviewed: Yes Past Medical History: Diagnosis Date CPAP (continuous [...] OP 12/11/2005 normal repeat 2015, Dr Nolan, [facility] PARTIAL REMOVAL OF EYE FLUID [...] INCISION, FINGER cut off end of thumb Family History Problem Relation Name Age of [...] Past Hx Son No Past Hx Son Has patient ever had cancer? History of cancer, type: skin and location: head removed in the past Social History Tobacco Use Smoking status: Never Smokeless tobacco: Never Substance Use Topics Alcohol use: No Vaping/E-Cigarette Use Vaping/E-Cigarette Use Never User Vaping/E-Cigarette Substances Vaping/E-Cigarette Devices Tobacco/Alcohol screening completed today? Yes Hospital Care: Admissions (within the last year): Not Applicable ER within 30 days: No Does the patient have an Advance Directives/Living Will? No. Does the patient want information? Yes. Information given to patient, Would like Alem to be healthcare consumer sales representative Last Physical Exam: Last physical exam: 09/2023 Does patient see primary provider regularly? Yes Does patient see other providers? Yes, Specialist Patient Care Team updated? Yes Review of patient's allergies indicates: No Known Allergies Immunization History Administered Date(s) Administered DTWP HIB - Dipth/Tet/Whole Cell Pert/HIB 03/20/2007 Pneumococcal Polysaccharide PPV23 (Pneumovax) 04/13/2009 Seasonal Influenza, Split, IIV3, With Preserve, Inj 07/11/2001, 06/22/2006, 04/14/2009 TDAP (age 10 and older)(Boostrix) 02/04/2013 Current Outpatient Medications Medication Sig Dispense Refill [...] No current facility-administered medications for this visit. Patient Active Problem List Diagnosis Obstructive sleep apnea of adult CPAP (continuous positive airway pressure) dependence Preauricular sinus Hx of nonmelanoma skin cancer Morbid obesity due to excess calories (HCC) Body mass index (BMI) of 40.0 to 44.9 in adult ([facility]) Medication Compliance: Patient is able to obtain all of his medications? Yes Patient takes medications as prescribed? Yes Patient manages own medications: Yes Patient uses a pill box? No Dental Exam: Yes: Every 6 Months Eye Screening: Yes: Every 1x a year Are you having trouble with hearing? No Do you use an assistive device to help your hearing? No Exercise Screening: exercises 3-4 times per week Walks and gardens a lot in the summer months, in winter months goes to the [facility] Nutrition Assessment: Eats a balanced diet and 5 meals a day eats a lot of fresh veggies from the garden Pain Screening: Are you having any pain? No Sleep Screening Tool 'STOP': + sleep apnea uses CPAP Patient and Caregiver Support System: Patient lives with a spouse Means of Transportation: Drives. Not a concern. Patient lives in 3 story home with hand rails on stairs Community Resources: Not Applicable Functional Status and ADL Skills: Has patient ever had an amputation? No Functional Assessment: 100- Normal, no complaints, no evidence of disease Ambulation: Patient ambulates without assistive device. Independent Dressing: Gets clothes and dresses without any assistance: Independent Able to move freely in chair or bed including turning over: Independent Repositioning (bed or chair): Not applicable Transfers: Independent Toileting: Goes to bathroom, uses toilet, arranges clothes and returns without any assistance: Independent Toileting: continent of bladder and continent of bowel Feeding: Self Bathing: Self; tub/shower without hand bars Requires none assistance with ADLs. Instrumental ADL's: Shopping: Independent Housekeeping: Independent Handling Finances: Independent DME Vendor Name: Not Applicable Fall Risk Assessment: Can the patient demonstrate that he can stand from a sitting position? Yes Has the patient had a fall within the last 6 months? No Does the patient have a problem with his gait or balance? No Does the patient take 4 or more prescription medicines? No Does the patient use sedatives or narcotics? No Fall Risk Factors Present: Older than age 70 Fro-Vh-ogu-Go Test: Time began at 1000. Patient stood from sitting position and walked approximately 10 feet, returned and sat down. Total time for mnn-qe-cxd-go test was 9 seconds. Opa-Tm-dsf-Go Test completed? Yes Gender Specific Preventative Plan: Health Maintenance Topic Date Due DTaP,Tdap,and Td Vaccines (3 - Td or Tdap) 10/09/2024 (Originally 02/04/2023) Influenza Vaccine (FLU shot) (1) 03/22/2024 Depression Screening 03/13/2025 Adult Wellness Visit 03/13/2025 Colorectal Cancer Screening 06/13/2025 Lipid Panel 03/09/2027 Hepatitis B Vaccine Aged Out MENINGOCOCCAL (MENACTRA/MENVEO) Aged Out HPV (Gardasil) Vaccine Aged Out RETIRED - COLONOSCOPY-EVERY 5 YRS AGES 18-100 Discontinued Zoster Vaccines Discontinued Pneumococcal Vaccine: 65+ Years Discontinued COVID-19 Vaccine Discontinued Follow Up/ Referrals/Handouts: Falls Risk screening - completed, handouts given Exercise screening -provide exercise handouts Nutrition assessment -. Education Provided and Handouts Provided Pain screening - no concerns Incontinence screening - no concerns Patient has a flesh colored growth in his R ear canal. Not reddened, not itchy, no drainage. Not affecting his hearing. Will mention this to his PCP for any advice. Patient also has c/o bilateral ankle trace edema. He was educated on limiting salt (he has been adding salt to veggies grown in his garden) and also encouraged to elevate and try compression stockings. Notify office if no improvement or if worsens. Routine general medical examination at a health care facility (Primary) Risk and functional assessment CPAP (continuous positive airway pressure) dependence Obstructive sleep apnea of adult Continue regular CPAP use and follow up with Sleep medicine Follow Up: Return in 1 year (on 03/13/2025) for 12 month Subsequent Adult Wellness Visit. | For: 12 month Subsequent Adult Wellness Visit | Check-out note: 12 month Subsequent Adult Wellness Visit Patient has been verbally educated on the need or importance of Immunizations: TDAP, Pneumovax and Shingles and continued regular follow up with care team. Patient declining all vaccines at this time. Pt has completed the covid vaccines: No Would patient like to schedule next AWV visit? Yes Harper Bailon RN AD8 Dementia Screening Interview Person answering questions: patient Remember, "Yes, a change" indicates that there has been a change in the last several years caused by cognitive (thinking and memory) problems 1. Problems with judgement (eg: problems making decisions, bad financial decisions, problems with thinking). No (0) 2. Less interest in hobbies/activities. No (0) 3. Repeats the same things over and over (questions, stories, or statements). No (0) 4. Trouble learning how to use a tool, appliance, or gadget (eg: VCR, computer, microwave, remote control). No (0) 5. Forgets correct month or year. No (0) 6. Trouble handling complicated financial affairs (eg: balancing checkbook, income taxes, paying bills). No (0) 7. Trouble remembering appointments. No (0) 8. Daily problems with thinking and/or memory. No (0) TOTAL AD8: 0 - AD8 Dementia Screening Score The final score is a sum of the number items marked "Yes, A Change". 0 - 1: Normal cognition; 2 or greater: Cognitive impairments is likely to be present - further testing required documented in this encounter Miscellaneous Notes * Pt Handout (not on AVS) - Harper Bailon RN - 03/13/2024 10:22 AM EDT [address]478 Preventing Falls: How to Prepare and What to Do Falling is not something you want to think about. But it can make a big difference to plan ahead. If you're prepared, you'll know how to get help. And you'll be less likely to panic if you fall. Thismeans you'll be able to do what's needed to get help right away. How to prepare Have someone check on you daily, either in person or by phone. Keep a list of emergency numbers near the phone. Always have a way to call for help. Keep a cell phone with you at all times. Or talk with your healthcare provider about how to set up a home monitoring service. This involves wearing a small device around your neck or wrist. If you fall, you can press the button on the device. This alerts emergency responders. Talk with your healthcare provider about an exercise program that's right for you. Regular exercise may reduce the risk of falling and the risk for injury related to a fall. Have good lighting in your home. Don't use throw rugs, because they can raise your risk of tripping and falling. Add grab bars in the bathroom to help reduce the risk of falling. Small changes canmake your home safer. Talk with your healthcare provider about making your home safer. What to do if you fall Above all, try to stay calm: If you start to fall, try to relax your body. This will reduce the impact of the fall. After you fall, press your monitor button, or use your phone to call for help. Don't palmer to get up. First, make sure you're not hurt. Roll onto your side, then crawl to a chair. Pull yourself up onto the chair slowly. Get checked if you struck your head, lost consciousness, were confused afterward, or have any other concerns for injury. Tell your healthcare provider that you fell. They can check you for injuries as needed, try to determine what made you fall, and help prevent you from falling again. A note to family and friends If you're with a loved one when they start to fall, don't try to stop the fall. Ease the person to the floor carefully, so neither of you gets hurt. Don't leave the person alone. And don't try to move them, especially if they may have hurt their head or neck. Check for injuries. If help is needed right away, call 911. Last Reviewed Date: 06/21/202219998491-4004 The [employer]. All rights reserved. This information is not intended as a substitute for professional medical care. Always follow your healthcare professional's instructions. * Pt Handout (not on AVS) - Harper Bailon RN - 03/13/2024 10:22 AM EDT Images from the original note were not included. 25594 Low-Salt Choices Eating salt (sodium) can make your body retain too much water. Extra water makes your heart work harder. Canned, packaged, and frozen foods are easy to prepare. But they are often high in sodium. Here are some ideas for low-salt foods you can easily make yourself. For breakfast Fruit or 100% fruit juice. It's better to have whole fruit instead of 100% fruit juice. Low sodium whole-wheat bread or an [place] muffin. Look for sodium content on Nutrition Facts labels. Low-fat milk or yogurt Unsalted eggs Shredded wheat [place] tortillas Unsalted steamed rice Regular (not instant) hot cereal, made without salt Stay away from Sausage, bustos, and ham Flour tortillas Packaged muffins, pancakes, and biscuits Instant hot cereals Cottage cheese For lunch and dinner Fresh fish, chicken, turkey, or meat?baked, broiled, or roasted without salt Dry beans, cooked without salt Tofu, stir-fried without salt Unsalted fresh fruit and vegetables, or frozen or canned fruit and vegetables with no added salt Stay away from Lunch or deli meat that is cured or smoked Cheese Tomato juice and ketchup Canned vegetables, soups, and fish not labeled as at-ujtt-ojujf or reduced sodium Packaged gravies and sauces Olives, pickles, and relish Bottled salad dressings For snacks and desserts Yogurt Unsalted, air-popped popcorn Unsalted nuts or seeds Stay away from Pies and cakes Packaged dessert mixes Pizza Canned and packaged puddings Pretzels, chips, crackers, and nuts?unless the label says unsalted Last Reviewed Date: 01/19/202219992819-3417 File[employer]. All rights reserved. This information is not intended as a substitute for professional medical care. Always follow your healthcare professional's instructions. documented in this encounter Plan of Treatment Upcoming Encounters Date Type Department Care Team (Late st Contact Info) Description 05/19/2024 9:30 AM EDT Office Visit Urology, [address] [place] [address] Rolan Gamboa MD [address] [place] [address] 07/03/2024 10:40 AM EST Office Visit Sleep Disorders Ctr [facility] [address] [place] [phone] Laura Nunez, DO [address] [place] [address] 10/09/2024 9:20 AM EDT Office Visit Family Practice [facility] [address] [facility] [place] [id number] Alok Guzman, DO [address] [facility] [place] [id number] 03/17/2025 10:00 AM EDT Nurse Only Ancillary [facility] [address] [facility] [place] [address] [place], Nurse Annual Wellness [facility] [address] [facility] [place] [id number] Scheduled Procedures Name Priority Associated Diagnoses Date/Ti me COLONOSCOPY FLEXIBLE PROXIMAL DIAGNOSTIC Recall History of colon polyps Health Maintenance Due Date Last Done Comments Fecal Occult Blood Test 1997 Sigmoidoscopy 1997 Cologuard 01/07/2021 01/07/2018 Influenza Vaccine (FLU shot) (#1) 2024 04/14/2009, 06/22/2006, 07/11/2001 DTaP,Tdap,and Td Vaccines (3 - Td or Tdap) 10/09/2024 [...] this encounter Medical Devices Implanted Type Area Payroll And Benefits Manager Device Identifier Shelf Expiration Date Model / Serial / Lot Lens Intraoc 22.5 - [id number] - [id number] Implanted:Qty: 1 on 01/07/2018 by Andres Ty MD at OR [facility] Right: Eye [employer] LOMB 08/21/2022 [id number] / [id number] / [id number] Lens Intraoc 22.5 - [id number] - [id number] Implanted:Qty: 1 on 01/16/2018 by Andres Ty MD at OR [facility] Left: Eye BA[employer]CH [employer] LOMB 06/20/2022 [id number] / [id number] / [id number] documented as of this encounter Visit Diagnoses Diagnosis Routine general medical examination at a health care facility- Primary Risk and functional assessment Screening for unspecified condition CPAP (continuous positive airway pressure) dependence Dependence on other enabling machine Obstructive sleep apnea of adult Obstructive sleep apnea (adult) (pediatric) documented in this encounter Advance Directives * Full Code (Latest Code Status on File) Date Activated Date Inactivated Comments 01/16/2018 11:43 AM 01/16/2018 6:14 PM This order reflects the patients wishes and were consensually agreed upon. * Full Code Date Activated Date Inactivated Comments 01/07/2018 11:40 AM 01/07/2018 5:31 PM This order reflects the patients wishes and were consensually agreed upon. Care Teams Soil Science Professor Relationship Specialty Start Date End Date Alok Guzman DO [address] [place], [place] [id number] PCP - General Family Medicine 10/09/22 documented as of this encounter
--- OUTSIDE RECORDS SUMMARY | 2024-07-21 16:10 | External Medical Summary | Summary of Care ---
Author Name Unknown Organization [facility] Address [address] [facility] [place] [address] Phone [phone] Care Team Providers Care Side Stapler Name Role Phone MoraimaAlok jefferson Kayla HEALY Primary Care Provider [phone] Reason for Visit * Reason Comments NEW PATIENT Lesion in right ear canal * Evaluate & Treat - Unlimited Visits (Within 10 days (routine)) - Authorized Specialty Diagnoses / Procedures Referred By Rory velez Referred To Contact Otolaryngology Diagnoses Skin neoplasm Radha Raymond PA-C [address] [place] [address] Referral ID Status Reason Start Date Expiration Date Visits Requested Visits Authorized [id number] Authorized Specialty Services Required 03/24/2024 [id number] Encounter Details Date Type Department Care Team (Late st Contact Info) Description 04/27/2024 9:00 AM EDT Office Visit Otolaryngology [facility] [address] [place] [address] Heath Painting PA-C [address] [place] [address] Lesion of external ear canal, right* Allergies No known active allergiesdocumented as of this encounter (statuses as of 04/28/2024) Medications Medication Sig Dispensed Refills Start Date [...] as of this encounter (statuses as of 04/28/2024) Active Problems Problem Noted Date Diagnosed Date [...] as of this encounter (statuses as of 04/28/2024) Resolved Problems Problem Noted Date Diagnosed Date [...] as of this encounter (statuses as of 04/28/2024) Immunizations Name Administration Dates Next Due DTWP [...] NEW PATIENT Lesion in right ear canal Edmnod Bear is a 74 year old male [...] 08/12/2015 Vitreous hemorrhage (HCC) 02/06/2016 PPV/EL for [facility] OD-Dr. Tena Past Surgical History: Procedure Laterality Date COLONOSCOPY, DIAGNOSTIC (RECTUM) 06/13/2020 adenomatous polyp, repeat 5 yrs / COLONOSCOPY FLEXIBLE PROXIMAL DIAGNOSTIC performed by Joi Murphy MD at ENDOSCOPY [facility] COLONOSCOPY, GI REFERRAL OP 12/11/2005 normal repeat 2015, Dr Nolan, [facility] PARTIAL REMOVAL OF EYE FLUID Right 02/06/2016 PPV/EL for [facility] OD-Dr. Tena REMOVE CATARACT, INSERT LENS PROSTH Right 01/07/2018 right EXTRACAPSULAR CATARACT REMOVAL WITH INTRAOCULAR LENS performed by Andres Ty MD at OR [facility] REMOVE CATARACT, INSERT LENS PROSTH Left 01/16/2018 left EXTRACAPSULAR CATARACT REMOVAL WITH INTRAOCULAR LENS performed by Andres Ty MD at OR [facility] TENDON SHEATH INCISION, FINGER 2018 TENDON [...] of R ear canal lesion planned for [facility] with Dr. Trammell Pt would like removal-- we discussed risks of bleeding, infection, scarring, re-growth. Pt verbalized understanding and agrees with plan. Questions/Concerns addressed. Heath Painting PA-C [facility] [place] [facility] [address] [place] [address] 04/27/2024 I spent a total of 30-39 [...] Painting PA-C. Please refer to the physician vet assistant's note for the documented findings and [...] understanding signed informed consent. Puma Trammell DO, [facility] Salesperson [employer], Department of Otolaryngology-Head and Neck Surgery [facility], [place] 04/28/2024 12:24 PM documented in this encounter [...] AM EDT Office Visit Dermatology [address] [place] [address] [place] [address] Param Nolasco MD [address] [place] [address] 05/19/2024 9:30 AM EDT Office Visit Urology, [facility] [address] [place] [address] Rolan Gamboa MD [address] [place] [address] 07/03/2024 10:40 AM EST Office Visit Sleep Disorders Ctr [facility] [address] [facility] [place] [phone] Laura Nunez, DO [address] [facility] [place] [address] 08/06/2024 11:30 AM EST Office Visit Otolaryngology [facility] [address] [facility] [place] [address] Heath Painting PA-C [address] [facility] [place] [address] 10/09/2024 9:20 AM EDT Office Visit Family Practice [facility] [address] [facility] [place] [address] Alok Guzman, DO [address] [facility] [place] [address] 03/17/2025 10:00 AM EDT Nurse Only Ancillary [facility] [address] [facility] [place] [address] [place], Nurse Annual Wellness [address] [facility] [place] [address] Scheduled Procedures Name Priority Associated Diagnoses Date/Ti [...] this encounter Medical Devices Implanted Type Area Housekeeping/Laundry Device Identifier Shelf Expiration Date Model / Serial / Lot Lens Intraoc 22.5 - [id number] - [id number] Implanted:Qty: 1 on 01/07/2018 by Andres Ty MD at OR [facility] Right: Eye [employer]CH [employer] LOMB 08/21/2022 [id number] / [id number] / [id number] Lens Intraoc 22.5 - [id number] - [id number] Implanted:Qty: 1 on 01/16/2018 by Andres Ty MD at OR [facility] Left: Eye BAUSCH [employer] LOMB 06/20/2022 [id number] / [id number] / [id number] documented as of this encounter Visit Diagnoses [...] and were consensually agreed upon. Care Teams Side Stapler Relationship Specialty Start Date End Date Alok Guzman DO [address] [place] [address] PCP - General Family Medicine 10/09/22 documented as of this encounter
--- NOTE | 2024-07-21 16:27 | Emergency Department Note ---
History of Present Illness General Chief complaint: Arrhythmia/Palpitations Stated complaint: IRREGULAR HEART BEAT, A-FIB Time Seen by Provider: 07/21/24 13:13 History of Present Illness Provider complaint: New onset A-fib 74-year-old male presents emergency department from his PCPs office for new onset A-fib. Patient reports that he was having chest pain earlier in the week so he went to go see his doctor today. He is currently reporting no chest pain or difficulty breathing. Patient states his doctor evaluated him and told him he had an abnormal heartbeat and told him to come to the ER. He denies any current chest pain Diffley breathing nausea vomiting diarrhea hematuria melena hematochezia. Patient reports no recent travel no exogenous hormone usage. No hemoptysis. Home Medications Medication Instructions Recorded Confirmed Type multivitamin (Daily Multi-Vitamin 1 tab PO DAILY 07/24/23 07/21/24 History tablet) tamsulosin 0.4 mg capsule 0.4 mg PO HS 07/24/23 07/21/24 History finasteride 5 mg tablet 5 mg PO DAILY #30 tabs 08/27/23 07/21/24 Rx Allergies Allergy/AdvReac Type Severity Reaction Status Date / Time No Known Allergies Allergy Mild Verified 02/06/16 06:31 Past Med/Surg History Problem List (Updated 07/21/24 @ 16:24 by Basilia Chacon PA-C) New onset atrial fibrillation CHERYL on CPAP Medical History History of vitreous hemorrhage History of nonmelanoma skin cancer BPH w urinary obs/LUTS Surgical History History of surgical amputation of finger History of cataract surgery Family History Father Cancer Social History Smoking Status: Never smoker Feels Safe at Home: Yes Physical Exam Vital Signs Vital Signs - 24 hr 07/21/24 11:31 07/21/24 13:12 07/21/24 13:14 Temperature 36.5 C Temperature Source Temporal Artery Scan Pulse Rate 89 105 H Pulse Rate [Left Finger] 90 Respiratory Rate 18 13 Respiratory Effort / Characteristics Non-Labored Spontaneous Respiratory Depth Normal Blood Pressure 158/101 H Blood Pressure [Left Arm] 152/105 H Blood Pressure Mean 120 Blood Pressure Mean [Left Arm] 120 Blood Pressure Position [Left Arm] Pulse Oximetry 94 96 Oxygen Delivery Method Room Air Sepsis Recent Fever Within 48 Hours No Sepsis New/Unexplained Change in Mental Status No Sepsis Action Taken by Nursing No Action Required 07/21/24 14:19 Temperature Temperature Source Pulse Rate Pulse Rate [Left Finger] 92 H Respiratory Rate 16 Respiratory Effort / Characteristics Respiratory Depth Blood Pressure Blood Pressure [Left Arm] 141/94 H Blood Pressure Mean Blood Pressure Mean [Left Arm] 109 Blood Pressure Position [Left Arm] Sitting Pulse Oximetry 96 Oxygen Delivery Method Sepsis Recent Fever Within 48 Hours Sepsis New/Unexplained Change in Mental Status Sepsis Action Taken by Nursing Physical Exam GENERAL: oriented to person, place, and time. appears well-developed and well- nourished. HENT: Exam performed. - Head: Normocephalic and atraumatic. EYES: Conjunctivae and EOM are normal. Right eye exhibits no discharge. Left eye exhibits no discharge. No scleral icterus. NECK: Normal range of motion. Neck supple. No JVD present. CV: Normal rate, irregular rhythm, normal heart sounds and intact distal pulses. There is no peripheral edema. Palpable radial pulses bue. PULM/CHEST: Effort normal and breath sounds normal. No respiratory distress. No stridor. no wheezes. no rales. ABD: The abdomen is soft. There is no tenderness. NEURO: Motor and sensation grossly intact. SKIN: Skin is warm and dry. He is not diaphoretic. PSYCH: normal mood and affect. Behavior is normal. Judgment and thought content normal. Course Course 1313: The patient was evaluated in room C4. A complete history and physical exam was performed Cardiac monitoring: An order was placed for continuous cardiac monitoring. The monitor shows a rate of 100 with atrial fibrilation rhythm interpreted by me 1510: Vital signs stable. Labs and imaging are unremarkable. Patient remains in atrial fibrillation with rhythm with no RVR. Patient will be admitted to the [facility] team for further evaluation by cardiology. SANTOSH?DS?-VASc Score for Atrial Fibrillation Stroke Risk from [employer] on 07/21/2024 All calculations should be rechecked by clinician prior to use RESULT SUMMARY: 1 points Stroke risk was 0.6% per year in >90,000 patients (the [place] Atrial Fibrillation Cohort Study) and 0.9% risk of stroke/TIA/systemic embolism. INPUTS: Age > 1 = 65-74 Sex > 0 = Male CHF history > 0 = No Hypertension history > 0 = No Stroke/TIA/thromboembolism history > 0 = No Vascular disease history (prior SD, peripheral artery disease, or aortic plaque) > 0 = No Diabetes history > 0 = No Administered Medications Discontinued Medications Aspirin (Aspirin 81 Mg Chew) 324 mg PO NOW STA Stop: 07/21/24 15:15 Last Admin: 07/21/24 15:24 Dose: 324 mg Documented By: KHAI Ioversol (Optiray 320 125ml) 117 ml IV ONCE ONE Stop: 07/21/24 14:26 Last Admin: 07/21/24 14: Dose: 117 ml Documented By: ENRIQUE Medical Decision Making Medical Records Attestation: I reviewed the patient's medical records. External medical records reviewed. Patient was seen by Dr. Blessing Montelongo today for chest pain and increased blood pressure. He was found to be in A-fib RVR and referred to the emergency department. Laboratory Data Attestation: I reviewed the patient's lab results. 07/21/24 11:55 07/21/24 11:55 Lab Results 07/21/24 Range/Units 11:55 WBC 6.52 (4.8-10.8) K/ul RBC 5.26 (4.70-6.10) M/uL Hgb 15.7 (14.0-18.0) g/dl Hct 45.7 (42.0-52.0) % MCV 86.9 (80.0-100.0) fL MCH 29.8 (25.0-34.0) pg MCHC 34.4 (32.0-36.0) g/dL RDW Std Deviation 40.0 (36.4-46.3) fL RDW Coeff of Dwayne 12.6 (11.5-14.5) % Plt Count 130 (130-400) K/uL MPV 11.3 (9.4-12.4) fL Immature Gran % (Auto) 0.2 % Neut % (Auto) 48.3 % Lymph % (Auto) 38.5 % [place] % (Auto) 11.0 % Eos % (Auto) 1.5 % Baso % (Auto) 0.5 % Neut # (Auto) 3.15 (1.40-6.50) K/uL Lymph # (Auto) 2.51 (1.20-3.40) K/uL [place] # (Auto) 0.72 H (0.11-0.59) K/uL Eos # (Auto) 0.10 (0.00-0.50) K/uL Baso # (Auto) 0.03 (0.00-0.20) K/uL Immature Gran # (Auto) 0.01 (0.01-0.20) K/uL PT 11.0 (9.0-12.0) Seconds INR 1.0 (0.9-1.1) APTT 25 (21-31) Seconds PTT Ratio 0.9 Sodium 140 (136-145) mmol/L Potassium 4.0 (3.5-5.1) mmol/L Chloride 108 H (98-107) mmol/L Carbon Dioxide 26 (21-32) mmol/L Anion Gap 6 (3-11) BUN 23 (6-23) mg/dl Creatinine 1.03 (0.6-1.4) mg/dl Est Cr Clr Drug Dosing 77.7 ml/min eGFR 77.18 BUN/Creatinine Ratio 22.3 H (10-20) Glucose 129 H (70-99(Fasting)) mg/dl Calcium 8.9 (8.6-10.3) mg/dl Magnesium 2.0 (1.7-2.4) mg/dl Total Bilirubin 0.3 (0.2-1.0) mg/dl AST 18 (13-39) U/L ALT 30 (7-52) U/L Alkaline Phosphatase 66 (34-104) U/L Troponin I High Sens 12.5 (0-20) pg/ml Total Protein 6.7 (6.0-8.3) gm/dl Albumin 4.1 (3.4-5.0) gm/dl Globulin 2.6 (2.5-4.0) gm/dl Albumin/Globulin Ratio 1.6 (0.9-2) TSH 1.441 (0.300-4.500) uIu/ml Imaging Data Attestation: I personally reviewed and interpreted this imaging study as follows: My Impression: Chest x-ray negative. Airway clear. No pneumothorax. No consolidation. No cardiomegaly or cephalization.. No free air under the diaphragm. No fractures of the skeletal structures. Radiologist's Impression: Chest X-Ray 07/21/24 11:33 XR chest 1V not portable CLINICAL HISTORY: Atrial fibrillation. COMPARISON STUDY: Chest radiograph May 15, 2007. FINDINGS: There is no pneumothorax or pleural effusion. Lung volumes are mildly diminished. Mild right basilar opacity favors atelectasis. There is no consolidation. Moderate cardiomegaly is noted. There is no for pulmonary edema. IMPRESSION: No acute cardiopulmonary findings. ACT 112: Negative or not required by law. Electronically signed by: Mateus Middleton M.D. 07/21/2024 1:07 PM Chest CTA 07/21/24 13:18 CT angio chest PE protocol CLINICAL HISTORY: ro pe TECHNIQUE: Multidetector row helical CT of the chest was performed with angiographic protocol. Coronal and sagittal reformations were obtained. Coronal and sagittal MIPS were obtained from the axial data set and were submitted for review. Automated dose lowering techniques and/or adjustment according to patient size were utilized for this exam. CT DOSE: 911.67 mGy.cm Comparison: None available at the time of this dictation. FINDINGS: Lungs and pleura: Atelectasis versus scarring is seen in the dependent portions of the lungs. Heart and pericardium: Heart size is normal. No pericardial effusion. Vessels: No evidence of pulmonary embolism. Mediastinum and cy: Unremarkable. Chest wall and lower neck: Unremarkable. Abdomen: Hepatic steatosis is noted. Bones: Mild degenerative changes are seen. IMPRESSION: No acute abnormality and in particular no evidence of pulmonary embolus. ACT 112: Negative or not required by law. Electronically signed by: Jan Raphael M.D. 07/21/2024 2:57 PM ECG Data Attestation: I personally reviewed and interpreted this ECG as follows: Rate (beats per minute): 104 Rhythm: + atrial fibrillation ECG Intervals/blocks: + Normal QRS and + Normal QT-c ECG ST segments: + Normal ST segments MDM Narrative 1313: The patient was evaluated in room C4. A complete history and physical exam was performed Cardiac monitoring: An order was placed for continuous cardiac monitoring. The monitor shows a rate of 100 with atrial fibrilation rhythm interpreted by me 1510: Vital signs stable. Labs and imaging are unremarkable. Patient remains in atrial fibrillation with rhythm with no RVR. Patient will be admitted to the [facility] hospitalist team for further evaluation by cardiology. SANTOSH?DS?-VASc Score for Atrial Fibrillation Stroke Risk from [employer] on 07/21/2024 All calculations should be rechecked by clinician prior to use RESULT SUMMARY: 1 points Stroke risk was 0.6% per year in >90,000 patients (the [place] Atrial Fibrillation Cohort Study) and 0.9% risk of stroke/TIA/systemic embolism. INPUTS: Age > 1 = 65-74 Sex > 0 = Male CHF history > 0 = No Hypertension history > 0 = No Stroke/TIA/thromboembolism history > 0 = No Vascular disease history (prior SD, peripheral artery disease, or aortic plaque) > 0 = No Diabetes history > 0 = No Impression & Plan Atrial fibrillation Discharge Plan Visit Data Chief Complaint: Arrhythmia/Palpitations Stated Complaint: IRREGULAR HEART BEAT, A-FIB ED Provider: Sage Cullen Discharge Problem: Atrial fibrillation Patient Disposition: Being Evaluated by Hospitalist Forms Stand Alone Forms: [employer] Prescriptions Prescriptions: No Action tamsulosin 0.4 mg capsule 0.4 mg PO HS multivitamin [Daily Multi-Vitamin] Tablet 1 tab PO DAILY finasteride 5 mg tablet 5 mg PO DAILY Qty: 30 11RF Referrals Referrals: Alok Guzman DO [Primary Care Provider] -
[2024-07-21] MEDS ORDERED: METOPROLOL TARTRATE 1 MG/ML VIAL IV PRN (16:45)
[2024-07-21] MEDS ORDERED: ACETAMINOPHEN 325 MG TAB PO PRN (16:45)
[2024-07-21] MEDS: METOPROLOL TARTRATE 25 MG TAB PO SCH ×2 (17:29→21:49)
[2024-07-21] MEDS ORDERED: Heparin IV Adult Wt-Based Low-Dose *NO* INITIAL Bolus Protocol IV STA (17:39)
[2024-07-21] MEDS: HEPARIN SODIUM/DEXTROSE 25,000 UNITS/500 ML BAG IV SCH (18:32)
[2024-07-21] MEDS: TAMSULOSIN HCL 0.4 MG CAP PO SCH (20:24)
--- OUTSIDE RECORDS SUMMARY | 2024-07-21 22:46 | External Medical Summary | Summary of Care ---
Author Name Unknown Organization [facility] Address [address] [facility] [place] [address] Phone [phone] Care Team Providers Care Senior Hris Analyst Name Role Phone Alok Guzman DO Primary Care Provider [phone] Reason for Visit * Reason Comments Acute Encounter Details Date Type Department Care Team (Late st Contact Info) Description 07/21/2024 9:20 AM EST Office Visit Family Practice [facility] [address] [facility] [address] [place] [address] Blessing Montelongo MD [address] [facility] [place] [address] Atrial fibrillation with rapid ventricular response (HCC)*; CHERYL on CPAP Allergies No known active allergiesdocumented as of this encounter (statuses as of 07/21/2024) Medications CPAP every night at bedtime. 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 Not on file Not on file documented as of this encounter Last Filed Vital Signs Vital Sign Reading Time Taken Comments Blood Pressure 110/80 07/21/2024 9:21 AM EST Pulse 110 07/21/2024 9:21 AM EST Temperature 36 C (96.8 F) 07/21/2024 9:21 AM EST Respiratory Rate 16 07/21/2024 9:21 AM EST Oxygen Saturation 94% 07/21/2024 9:21 AM EST Inhaled Oxygen Concentration - - Weight 108.9 kg (240 lb) 07/21/2024 9:21 AM EST pt reported Height - - Body Mass Index 37.23 07/09/2024 11:35 AM EST documented in this encounter Progress Notes * Blessing Montelongo MD - 07/21/2024 9:30 AM EST Subjective Chief Complaint Patient presents with Acute HPI: Edmond Bear is a 74 year old male. Patient is accompanied by his . The following issues were addressed today: Patient presents today with c/o episode of chest pain and elevated blood pressure about 1 week ago.The pain in his chest awoke him from sleep around 5am and he told his he didn't feel well and he was having trouble breathing. She took his vitals, and his heart rate was >100 and blood pressure was 180/120. She gave him 5mg atenolol which she is prescribed. His blood pressure remained elevated over the next 1-2 hours so she gave him another 1/2 tablet of atenolol. His blood pressure came down to normal range eventually. She states the next day his blood pressure was high again and she gave him another dose of atenolol. More recently his blood pressure has been normal at home but his heart rate has remained elevated. He has not had chest pain again since that first day and states he currently feels well. The patient does not have a history of hypertension and is not on medication other than finasterideand tamsulosin. He has CHERYL and uses a CPAP consistently. Review of Systems: See HPI Objective BP 110/80 | Pulse 110 | Temp 96.8 F (36 C) (Tympanic) | Resp 16 | Wt 240 lb (108.9 kg) Comment:pt reported | SpO2 94% | BMI 37.23 kg/m | BSA 2.27 m Wt Readings from Last 3 Encounters: 07/21/24 240 lb (108.9 kg) 07/09/24 239 lb (108.4 kg) 07/03/24 248 lb (112.5 kg) BP Readings from Last 3 Encounters: 07/21/24 110/80 07/09/24 142/89 07/03/24 120/80 General: Well-appearing, no acute distress Cardiovascular: Tachycardic rate, irregularly irregular rhythm Respiratory: Good respiratory effort, breath sounds equal and clear to auscultation bilaterally Extremities: No edema Neurological: Alert and oriented Psychiatric: Appropriate mood and affect Assessment & Plan 1. Atrial fibrillation with rapid ventricular response (HCC) - EKG 2. CHERYL on CPAP Patient with CHERYL on CPAP presenting with intermittent chest pain and SOB with recent elevated bloodpressures and heart rates at home. EKG today in the office shows atrial fibrillation with rapid ventricular response, which is new for him. I recommended that he go to the emergency room for additional evaluation and treatment, especially since he has been symptomatic and although vitals appear stable today there is suggestion they have not been stable at home. He and his were agreeable to go to [facility] ER by private vehicle. This note was electronically signed by Blessing Montelongo MD documented in this encounter Nursing Notes * Soo [place] NA - 07/21/2024 9:18 AM EST Edmond Bear presents with complaints of high blood pressure readings at home a few days ago. describes he woke up one morning complaining of squeezing and pressure in his chest. Reports they took his blood pressure and pulse. Reports blood pressure was systolic 130s and diastolic 120s and a pulse of 100s. reports giving him a dose of her own atenolol 5mg and waiting for an hour before rechecking with no change. Notes giving him another half tablet. Describes after some time his blood pressure and pulse came down. States it has been close to normal since then. Patient denies any chest pain at this time or difficulty breathing. documented in this encounter Plan of Treatment Upcoming Encounters Date Type Department Care Team (Late st Contact Info) Description 08/06/2024 11:30 AM EST Office Visit Otolaryngology [facility] [address] [place] [address] Heath Painting PA-C [address] [place] [address] 10/09/2024 9:20 AM EDT Office Visit Family Practice [facility] [address] [facility] [place] [id number] Alok Guzman, [address] [facility] [place] [address] 12/23/2024 8:15 AM EDT Office Visit MOHS Surgery [facility] [address] [place] [address] Mirian Barragan MD [address] [facility] [place] [id number] 03/17/2025 10:00 AM EDT Nurse Only Ancillary [facility] [address] [facility] [place] [id number] Marixa, Nurse [facility] [place] [address] [address] [place] [address] 05/31/2025 8:30 AM EST Office Visit Dermatology [facility] [address] [place] [address] Param Nolasco MD [address] [facility] [place] [id number] Scheduled Orders Name Type Priority Associated Diagnoses Orde r Schedule EKG EKG Routine Atrial fibrillation with rapid ventricular response (HCC) Ordered: 07/21/2024 Scheduled Procedures Name Priority Associated Diagnoses Date/Ti [...] this encounter Medical Devices Implanted Type Area Cane Stripper Device Identifier Shelf Expiration Date Model / Serial / Lot Lens Intraoc 22.5 - [id number] - [id number] Implanted:Qty: 1 on 01/07/2018 by Andres Ty MD at OR [facility] Right: Eye [employer] 08/21/2022 [id number] / [id number] / [id number] Lens Intraoc 22.5 - [id number] - [id number] Implanted:Qty: 1 on 01/16/2018 by Andres Ty MD at OR [facility] Left: Eye [employer] 06/20/2022 [id number] / [id number] / [id number] documented as of this encounter Visit Diagnoses Diagnosis Atrial fibrillation with rapid ventricular response (HCC)- Primary Atrial fibrillation CHERYL on CPAP Obstructive sleep apnea (adult) (pediatric) documented in [...] were consensually agreed upon. Care Teams Senior Hris Analyst Relationship Specialty Start Date End Date Alok Guzman DO [address] [place] [address] PCP - General Family Medicine 10/09/22 documented as of this encounter"
[2024-07-22 01:04] LABS: ANTI-Xa, UFH(UnfractionatedHep 0.14 IU/ml (0.3-0.7)
[2024-07-22] MEDS: HEPARIN SOD (PORCINE) 1000 UNIT/ML IV ONE (01:41)
[2024-07-22 06:20] LABS: Basophils # (auto) 0.04 K/uL (0.00-0.20); Basophils % (auto) 0.5 %; Eosinophils # (auto) 0.17 K/uL (0.00-0.50); Eosinophils % (auto) 2.2 %; Hematocrit (blood only) 46.1 % (42.0-52.0); Immature Granulocytes # (auto) 0.02 K/uL (0.01-0.20); Immature Granulocytes % (auto) 0.3 %; Lymphocytes # (auto) 2.83 K/uL (1.20-3.40); Lymphocytes % (auto) 36.5 %; Mean Corpuscular Hgb Conc 34.7 g/dL (32.0-36.0); Mean Corpuscular Volume 86.3 fL (80.0-100.0); Mean Platelet Volume 10.9 fL (9.4-12.4); Neutrophils # (auto) 3.99 K/uL (1.40-6.50); Neutrophils % (auto) 51.5 %; Platelet Count 128 K/uL (130-400); RDW Coefficient of Variation 12.7 % (11.5-14.5); RDW Standard Deviation 39.8 fL (36.4-46.3); Red Blood Count 5.34 M/uL (4.70-6.10); White Blood Count 7.75 K/ul (4.8-10.8)
[2024-07-22 06:33] LABS: BUN Creatinine Ratio 18.8 (10-20); Calcium 8.5 mg/dl (8.6-10.3); Chol HDL Ratio 5.5 (0-5); Creatinine Clr Calc Pharmacy 71.1 ml/min; Potassium 4.4 mmol/L (3.5-5.1)
[2024-07-22 07:11] LABS: Estimated Average Glucose 123 mg/dl; Hemoglobin A1C 5.9 % (4.5-5.6)
[2024-07-22] MEDS: FINASTERIDE 5 MG TAB PO SCH (08:15)
[2024-07-22] MEDS: ASPIRIN 81 MG ECTAB PO SCH (08:16)
[2024-07-22] MEDS: MULTIVITAMIN TAB PO SCH (08:16)
[2024-07-22 08:57] LABS: ANTI-Xa, UFH(UnfractionatedHep 0.35 IU/ml (0.3-0.7)
[2024-07-22] MEDS ORDERED: ENOXAPARIN INJ 40 MG/0.4 ML SYR SQ SCH (09:00)
[2024-07-22] MEDS: APIXABAN 5 MG TABLET PO ONE (15:46)
--- NOTE | 2024-07-22 15:53 | Discharge Summary ---
Discharge Summary Date of Service July 22, 2024 Principal Dx & Hospital Course #1 = Principal Diagnosis (1) New onset atrial fibrillation: (2) CHERYL on CPAP: (3) BPH w urinary obs/LUTS: Notes For Next Care Provider Medication Changes From Visit Metoprolol 50 mg twice daily Eliquis 5 mg twice daily Admission HPI Per Admitting Provider This is a 74 y/o male with CHERYL on CPAP and hx of BPH who was sent to the ED today by his PCP for new onset atrial fibrillation. Pt's assists with the history. Four nights ago, pt woke up at 2 am and then again at 5 am with chest pain. At 5 am, he woke up his who checked his BP and found it to be elevated with systolic in the 150s, his pulse was also noted to be "high." Pt's takes atenolol so she gave the patient once of her pills and rechecked his BP two hours later but it was the same so she gave him another 1/2 tablet of atenolol. When she rechecked his BP again around noon that day, she reports that it had improved and pt was feeling better. The next night, he had similar symptoms, and she again gave him atenolol x 2 doses with improvement in his symptoms. At this point, she made pt an appointment to be seen at his PCP's office, which was today. When he was seen today, he had an EKG performed, which showed new onset of atrial fibrillation with rapid ventricular response so they referred the patient to the ED for further evaluation. Patient was seen and admitted because of atrial fibrillation RVR, he was managed eventually with metoprolol 25 mg every 6 hours which as of today will be changed to 50 mg twice daily. His [id number] score is a 1 however patient is prediabetic and at this age with his body mass, would be in favor of starting him on anticoagulation and this was discussed with cardiology as well who concur with the plan. He was initially on heparin infusion however this was changed to Eliquis. Echocardiogram was reviewed which showed ejection fraction of 60 to 65% with otherwise no valvular abnormality although that was not a very technically good study considering the body size. With normal LV function, and heart rate being controlled, I will wait for the formal cardiology consultation but I guess patient can be discharged afterwards with follow-up by cardiology as outpatient. Updated Medication List Medication Instructions Recorded Confirmed Type multivitamin (Daily Multi-Vitamin 1 tab PO DAILY 07/24/23 07/21/24 History tablet) tamsulosin 0.4 mg capsule 0.4 mg PO HS 07/24/23 07/21/24 History finasteride 5 mg tablet 5 mg PO DAILY #30 tabs 08/27/23 07/21/24 Rx apixaban 5 mg tablet (Eliquis) 5 mg PO BID #60 tabs 07/22/24 Rx metoprolol tartrate 50 mg tablet 50 mg PO BID #60 tabs 07/22/24 Rx Hospital Stay Data Consultations 07/21/24 15:12 ED Decision to Admit Stat 07/21/24 16:45 Consult Cardiology Routine Diagnostic Imagining Performed 07/21/24 13:18 CT angio chest PE protocol Stat Pending Results Patient Have Any Pending Studies at Discharge: No Discharge Instructions Given to Patient (Per Discharging Provider) Patient will remain on anticoagulation, he benefits from weight reduction Total Time Total Time Spent Total Time Spent (In Minutes): 40 minutes
--- NOTE | 2024-07-22 16:44 | Cardiology Consultation ---
Date of Consultation July 22, 2024 Assessment & Plan (1) New onset atrial fibrillation: (2) Abnormal EKG: Patient presents with symptoms of shortness of breath and chest discomfort onset yesterday. High sensitive troponin within normal limits x 3 measurements. Atrial fibrillation is a new diagnosis for him. Rate well-controlled with the addition of metoprolol to tartrate. Echocardiogram reveals no regional wall motion abnormality normal LVEF Since the time when I initially interviewed the patient when I reviewed his full case including his outpatient EKG and the tracings performed today the patient was inadvertently discharged from the progressive care unit. I called the patient's daughter and recommended that he return. Arrangements were made for him to return to the same room 2381. Recommend ongoing inpatient evaluation. Would continue metoprolol tartrate 50 mg twice daily discontinue Eliquis in favor of unfractioned heparin to start at 2100 tonight and would make the patient n.p.o. after midnight for further ischemic evaluation to take place tomorrow 07/23/2024. History of Present Illness Attending Physician: Dariel Corley MD History of Present Illness Mr Bear is a 74 year old male seen in cardiology consultation per the request of Delmis Chacon PA-C for the evaluation of atrial fibrillation. Patient speaks [place] Island[place]. Awoke yesterday morning with symptoms of chest pain and shortness of breath. Had gone to see primary care provider and EKG revealed the presence of atrial fibrillation with mildly elevated ventricular rate of 105 bpm and lateral T wave changes. Past medical history is notable for obesity and sleep apnea. No past history of cardiac disease. Allergies Allergy/AdvReac Type Severity Reaction Status Date / Time No Known Allergies Allergy Mild Verified 02/06/16 06:31 Home Medications Medication Instructions Recorded Confirmed Type multivitamin (Daily Multi-Vitamin 1 tab PO DAILY 07/24/23 07/21/24 History tablet) tamsulosin 0.4 mg capsule 0.4 mg PO HS 07/24/23 07/21/24 History finasteride 5 mg tablet 5 mg PO DAILY #30 tabs 08/27/23 07/21/24 Rx apixaban 5 mg tablet (Eliquis) 5 mg PO BID #60 tabs 07/22/24 Rx metoprolol tartrate 50 mg tablet 50 mg PO BID #60 tabs 07/22/24 Rx Patient History Medical History History of vitreous hemorrhage History of nonmelanoma skin cancer BPH w urinary obs/LUTS Surgical History History of surgical amputation of finger History of cataract surgery Family History Father Cancer Social History Smoking Status: Never smoker Hx Alcohol Use: No Hx Substance Use: No Preferred Language: [place] Island[place] Communication Ability: Effective Utility Locate Technician Required: No Beliefs That Will Affect Care: Buddhism Current Living Situation: Spouse Other Information That Helps Us Care for You: No Feels Safe at Home: Yes Safety Concerns: Feels Safe At This Time Assistive Devices: CPAP Review of Systems Review of Systems: All systems reviewed & are unremarkable except as noted in HPI & below Physical Exam Physical Exam: Temp Pulse Resp BP Pulse Ox O2 Del Method 36.3 C L 77 19 122/83 93 Room Air 07/22/24 16:04 07/22/24 16:04 07/22/24 16:04 07/22/24 16:04 07/22/24 16:04 07/22/24 15:40 Constitutional: WD/WN, vitals as above Respiratory: normal respiratory effort, lungs clear to auscultation Cardiovascular: Rate/Rhythm: + irregularly irregular Vessels: no JVD Extremities: no edema Gastrointestinal (Abdomen): normal bowel sounds, soft, nontender, no hepatosplenomegaly Results & Data Vital Signs (Past 12 Hours) Vital Signs Temp Pulse Resp BP Pulse Ox O2 Del Method 07/22/24 16:04 36.3 C L 77 19 122/83 93 07/22/24 15:40 36.3 C L 77 19 122/83 93 Room Air 07/22/24 11:01 36.3 C L 79 19 117/83 93 Room Air 07/22/24 07:44 36.7 C 74 16 114/70 97 CPAP 07/22/24 05:39 67 126/85 Laboratory Results Cardiac Enzymes 07/21/24 07/22/24 Range/Units 19:51 00:48 Troponin I High Sens 14.4 19.3 D (0-20) pg/ml Lipids 07/22/24 Range/Units 05:18 Triglycerides 154 H (0-150) mg/dl Cholesterol 182 (0-200) mg/dl HDL Cholesterol 33 mg/dl Cholesterol/HDL Ratio 5.5 H (0-5) LDL: 118 mg/dl CBC 07/22/24 Range/Units 05:18 WBC 7.75 (4.8-10.8) K/ul RBC 5.34 (4.70-6.10) M/uL Hgb 16.0 (14.0-18.0) g/dl Hct 46.1 (42.0-52.0) % Plt Count 128 L (130-400) K/uL Neut # (Auto) 3.99 (1.40-6.50) K/uL Lymph # (Auto) 2.83 (1.20-3.40) K/uL Coffee # (Auto) 0.70 H (0.11-0.59) K/uL Eos # (Auto) 0.17 (0.00-0.50) K/uL Baso # (Auto) 0.04 (0.00-0.20) K/uL Comprehensive Metabolic Panel 07/22/24 Range/Units 05:18 Sodium 140 (136-145) mmol/L Potassium 4.4 (3.5-5.1) mmol/L Chloride 106 (98-107) mmol/L Carbon Dioxide 27 (21-32) mmol/L BUN 21 (6-23) mg/dl Creatinine 1.12 (0.6-1.4) mg/dl Glucose 108 H (70-99(Fasting)) mg/dl Calcium 8.5 L (8.6-10.3) mg/dl Intake and Output 07/22/24 07/22/24 07/22/24 06:59 14:59 22:59 Intake Total 263 / 363 960 / 960 Output Total 550 / 550 Balance -287 / -187 960 / 960 Intake: IV 143 / 143 Heparin Sodium/Dextrose 25,000 143 / 143 units In 500 ml @ 1,150 UNITS/ HR 23 mls/hr IV .[id number] [facility] Rx #:[id number] Oral 120 / 220 960 / 960 Output: Urine 550 / 550 Other: Weight 111.5 kg 111.5 kg Weight Measurement Method Built in [facility] Patient Weight 01/02/25 06:59 Weight 111.5 kg Diagnostic Findings Initial EKG performed 07/21/2024 at 11:46 AM revealed atrial fibrillation 104 bpm with nonspecific lateral T wave flattening. Compared to the tracing that h ad been performed earlier in the day within the [facility] [employer] system the lateral T wave changes were resolved at that time. EKG performed 07/22/2024 at 5:08 AM and interpreted independently: Atrial fibrillation at 83 bpm T wave inversions noted in leads V3, V4, V5, V6 which were new compared to the previous tracing 07/21/2024 at [place], similar to that observed at the PCPs office Transthoracic echocardiogram performed 07/22/2024 interpreted independently: Atrial fibrillation with controlled ventricular response present during echocardiogram. Mild concentric left ventricular hypertrophy is present LVEF normal at 60 to 65% The left atrium is mildly dilated Trace mitral regurgitation is present Mild tricuspid regurgitation present Doppler findings do not suggest pulmonary hypertension The aortic root is mildly dilated, 4.1 cm
[2024-07-22] MEDS ORDERED: Nursing to Pharmacy Communication SCH (19:30)
[2024-07-22] MEDS ORDERED: NITROGLYCERIN SL 0.4 MG/TAB TAB SL PRN (19:53)
[2024-07-22] MEDS: NITROGLYCERIN SL 0.4 MG/TAB TAB SL STA (20:00)
[2024-07-22] MEDS: METOPROLOL TARTRATE 50 MG TAB PO SCH (20:12)
[2024-07-22] MEDS: NITROGLYCERIN SL 0.4 MG/TAB TAB ONE (21:45)
--- NOTE | 2024-07-22 21:53 | Electrocardiogram Report ---
Test Reason : Blood Pressure : */* mmHG Vent. Rate : 83 BPM Atrial Rate : 129 BPM P-R Int : * ms QRS Dur : 90 ms QT Int : 408 ms P-R-T Axes : * 60 138 degrees QTcB Int : 480 ms Atrial fibrillation T wave abnormality, consider anterior ischemia Prolonged QT Abnormal ECG When compared with ECG of 21-Jul-2024 11:46, Nonspecific T wave abnormality, improved in Inferior leads T wave inversion now evident in Anterior leads Confirmed by Kane Bush ([id number]) on 07/22/2024 9:53:37 PM Referred By: REFERRED SELF Confirmed By: Kane Bush
[2024-07-22] MEDS: Heparin IV Adult Wt-Based Low-Dose *NO* INITIAL Bolus Protocol IV SCH (23:31)
[2024-07-23] MEDS: HEPARIN SODIUM/DEXTROSE 25,000 UNITS/500 ML BAG IV SCH (03:53)
[2024-07-23 08:09] LABS: BUN Creatinine Ratio 20.2 (10-20); Calcium 8.8 mg/dl (8.6-10.3); Creatinine Clr Calc Pharmacy 69.8 ml/min; Potassium 4.2 mmol/L (3.5-5.1)
--- NOTE | 2024-07-23 09:38 | Cardiology Progress Note ---
Date of Service July 23, 2024 Assessment & Plan (1) Unstable angina pectoris: (2) New onset atrial fibrillation: (3) Abnormal EKG: Plan: Patient presents with symptoms of shortness of breath and chest pressure High sensitive troponin within normal limits x 3 measurements. Atrial fibrillation is a new diagnosis for him. Rate well-controlled with the addition of metoprolol to tartrate. Echocardiogram reveals no regional wall motion abnormality normal LVEF EKG performed both on arrival to the primary care provider's office and a repeat tracing performed on 07/22/2024 at 5:08 AM revealed atrial fibrillation with T wave inversions in the anterolateral precordial leads suggestive of ischemia which were new compared to a previous tracing performed as an outpatient several years ago. As noted, had a detailed discussion with the patient and and his daughter with the use of the certified language interpretation service. Although his symptoms may be related to atrial fibrillation alone with the findings of the abnormal EKG suggestive of ischemia, I have concerns that his symptoms represent angina. Given his risk factors including age, and suspected underlying hypertension previously not treated, would recommend definitive coronary angiography for evaluation. I do not think a stress test would be adequate given the concerning EKG findings. Risks and benefits of this approach discussed with the patient at length including risks of bleeding, heart attack or stroke. Patient agreeable to proceed with cardiac catheterization. Patient is to remain n.p.o. except for medications. Will continue unfractionated heparin until the procedure. Continue metoprolol to tartrate 50 mg twice daily, aspirin 81 mg daily. Add lipid panel to his fasting labs from this morning I will start atorvastatin. Admission and Anticipated Discharge Date Admission Date: July 21, 2024 Subjective Patient seen in cardiology follow up. Consultation performed 07/22/24. Patient's daughter, Lesli, at the bedside as is his grand-daughter. The [place] Citizen speaking interpretation service was utilized by audio call, as video personnel worker was not readily available. Patient describes onset of chest pressure at 2 AM 2 days ago. He took his blood pressure at home and it was elevated. He took his blood pressure medications early he had an associated sensation like he could not catch his breath. He did not feel an irregular heartbeat. His symptoms persisted until 5 AM he had been seen by primary care and was referred to the emergency department by me and found to be in atrial fibrillation with mildly elevated ventricular response. Yesterday while hospitalized he had a brief episode of chest pressure that waxed and waned, now improved. Telemetry currently reveals atrial fibrillation in the 80s. He is on unfractioned heparin infusion. Review of Systems Review of Systems: All systems reviewed & are unremarkable except as noted in HPI & below Physical Exam Physical Exam: Temp Pulse Resp BP Pulse Ox O2 Del Method 36.5 C 66 16 139/95 93 Room Air 07/23/24 07:44 07/23/24 07:44 07/23/24 07:44 07/23/24 07:44 07/23/24 07:44 07/23/24 07:44 Constitutional: WD/WN, vitals as above Eyes: PERRL, conjunctivae normal, anicteric sclerae Neck: trachea midline, no thyromegaly Respiratory: normal respiratory effort, lungs clear to auscultation Cardiovascular: Rate/Rhythm: + irregularly irregular Vessels: no JVD Extremities: no edema Gastrointestinal (Abdomen): normal bowel sounds, soft, nontender, no hepatosplenomegaly Neurologic: PERRL, EOMI, accommodation nl, no face palsy, no dysarthria Results & Data Vital Signs (Past 12 Hours) Vital Signs Temp Pulse Pulse Resp BP Pulse Ox O2 Del Method 07/23/24 07:44 36.5 C 66 16 139/95 93 Room Air 07/23/24 02:19 36.5 C 85 16 124/87 92 Room Air 07/22/24 23:00 75 16 96 07/22/24 22:44 36.3 C L 82 16 101/67 92 Room Air 07/22/24 21:43 84 Laboratory Results Cardiac Enzymes 07/22/24 Range/Units 20:02 Troponin I High Sens 14.3 D (0-20) pg/ml Comprehensive Metabolic Panel 07/23/24 Range/Units 07:22 Sodium 138 (136-145) mmol/L Potassium 4.2 (3.5-5.1) mmol/L Chloride 106 (98-107) mmol/L Carbon Dioxide 25 (21-32) mmol/L BUN 23 (6-23) mg/dl Creatinine 1.14 (0.6-1.4) mg/dl Glucose 101 H (70-99(Fasting)) mg/dl Calcium 8.8 (8.6-10.3) mg/dl Intake and Output 07/22/24 07/23/2407/23/25 22:59 06:59 14:59 Intake Total 357 / 1472 155 / 1472 Balance 357 / 1472 155 / 1472 Intake: IV 357 / 412 55 / 412 Heparin Sodium/Dextrose 25,000 357 / 412 55 / 412 units In 500 ml @ 1 UNITS/HR 0. 02 mls/hr IV .Q24H [facility] Rx#: [id number] Oral 100 / 1060 Other: # Unmeasured Voids 1 Weight 111.5 kg
[2024-07-23 10:49] LABS: Chol HDL Ratio 5.5 (0-5)
[2024-07-23 10:53] LABS: ANTI-Xa, LMWH(Low Molecular Wt 0.34 IU/ML (< 0.10)
--- NOTE | 2024-07-23 12:46 | Electrocardiogram Report ---
Test Reason : Blood Pressure : */* mmHG Vent. Rate : 81 BPM Atrial Rate : 326 BPM P-R Int : * ms QRS Dur : 96 ms QT Int : 378 ms P-R-T Axes : * 58 81 degrees QTcB Int : 439 ms Atrial fibrillation T wave abnormality, consider lateral ischemia Abnormal ECG When compared with ECG of 22-Jul-2024 05:08, Nonspecific T wave abnormality, worse in Inferior leads T wave inversion no longer evident in Anterior leads Confirmed by Kelvin Glass ([id number]) on 07/23/2024 12:45:47 PM Referred By: REFERRED SELF Confirmed By: Kelvin Glass
[2024-07-23] MEDS: MIDAZOLAM HCL 1 MG/ML 2ML VIAL ONE (13:05)
[2024-07-23] MEDS: fentaNYL citrate PF 100 MCG/2 ML VIAL ONE (13:05)
[2024-07-23] MEDS: niCARdipine 2,000 MCG/20 ML SYR ONE (13:05)
[2024-07-23] MEDS: NITROGLYCERIN/D5W 100MCG/ML 20ML SYR ONE (13:06)
[2024-07-23] MEDS: OPTIRAY 350 ONE (13:07)
[2024-07-23] MEDS: HEPARIN (PORCINE) 1000 UNIT/ML 10 ML (CATH LAB USE ONLY) ONE (13:07)
--- NOTE | 2024-07-23 13:17 | Pre Anesthesia Assessment ---
Date of Service July 23, 2024 Pre Sedation Assessment Vital Signs Temp Pulse Pulse Resp BP BP Pulse Ox 07/23/24 11:04 73 14 129/89 92 07/23/24 10:43 97.3 F L 76 19 119/83 93 07/23/24 08:00 84 07/23/24 07:44 97.7 F 66 16 139/95 93 07/23/24 02:19 97.7 F 85 16 124/87 92 07/22/24 23:00 75 16 96 07/22/24 22:44 97.3 F L 82 16 101/67 92 07/22/24 21:43 84 07/22/24 19:47 97.7 F 84 18 118/88 92 07/22/24 16:04 97.3 F L 77 19 122/83 93 07/22/24 15:40 97.3 F L 77 19 122/83 93 O2 Del Method 07/23/24 11:04 Room Air 07/23/24 10:43 Room Air 07/23/24 08:00 07/23/24 07:44 Room Air 07/23/24 02:19 Room Air 07/22/24 23:00 07/22/24 22:44 Room Air 07/22/24 21:43 07/22/24 19:47 Room Air 07/22/24 16:04 07/22/24 15:40 Room Air Cardiovascular + regular rate Respiratory + respiratory effort normal Pre-Sedation Airway Assessment Smoking Status: Never smoker Hx Sleep Apnea: No Hx Difficult Intubation: No Short, Thick Neck: No Thyromental Distance: > or= 3.5 Finger Breadths Oral Cavity: + WNL Mallampati Class: III ASA: ASA2 NPO Status Date of Last Intake of Fluids: 07/22/24 Time of Last Intake of Fluids: 18:00 Date of Last Intake of Solid Food: 07/22/24 Time of Last Intake of Solid Foods: 18:00 Procedure Planning Contraindications for Sedation: none Current Medications Reviewed: Yes Notes The planned sedation has been discussed with the patient. Informed Consent was obtained. I have identified the patient, determined the appropriateness of sedation and have assessed the patient immediately prior to the procedure. All medicine(s) and interventions are by my order.
--- NOTE | 2024-07-23 13:17 | Post Anesthesia Assessment ---
Date of Service July 23, 2024 Post Sedation Assessment Vital Signs Temp Pulse Pulse Resp BP BP Pulse Ox 07/23/24 11:04 73 14 129/89 92 07/23/24 10:43 97.3 F L 76 19 119/83 93 07/23/24 08:00 84 07/23/24 07:44 97.7 F 66 16 139/95 93 07/23/24 02:19 97.7 F 85 16 124/87 92 07/22/24 23:00 75 16 96 07/22/24 22:44 97.3 F L 82 16 101/67 92 07/22/24 21:43 84 07/22/24 19:47 97.7 F 84 18 118/88 92 07/22/24 16:04 97.3 F L 77 19 122/83 93 07/22/24 15:40 97.3 F L 77 19 122/83 93 O2 Del Method 07/23/24 11:04 Room Air 07/23/24 10:43 Room Air 07/23/24 08:00 07/23/24 07:44 Room Air 07/23/24 02:19 Room Air 07/22/24 23:00 07/22/24 22:44 Room Air 07/22/24 21:43 07/22/24 19:47 Room Air 07/22/24 16:04 07/22/24 15:40 Room Air Recovery Score Activity: Moves 4 extremities Respiration: Deep Breath/Cough Circulation: +/-20% PreAnes Value Consciousness: Fully Awake Oxygen Saturation: O2 needed for >90% Discharge Sedation Level of Care: Fast Track Phase II Post Sedation Plan On clinical assessment, the patient appears to have tolerated the sedation without complications. Patient is recovering as anticipated. Patient will continue to be monitored by nursing and may be discharged when sedation discharge criteria are met per below protocol. Upon Completions of procedure up to 15 minutes continue every 5 minute vital signs and the P.A.R. score; then discharge to a Phase I or Fast Track to Phase II per the following guidelines: * Discharge Patient to appropriate Phase II area if PAR is 8 or greater or return to pre- procedure baseline. The post - procedure orders will be as directed. * If PAR score is less than 8 or not return to pre-procedure baseline then patient will follow Phase I monitoring till PAR is reached for Phase II. The Phase I may be done in procedure room or may call to secure a Phase I area. * If naloxone or flumazenil are used for reversal, hold in Phase I for continued monitoring from when last reversal dose was given for a minimum of 60 minutes or longer pending the nurse and/or physician discretion of patient condition before discharge to Phase II. Please call the Sedation Physician to re-evaluate and complete post-note for discharge to Phase II area. Do NOT discharge from procedure sedation or Phase 1 until post- sedation evaluation note is complete by procedure /sedation MD Sedation Discharge Instructions to be given to the patient at discharge to home.
--- NOTE | 2024-07-23 13:27 | Cardiac Catheterization ---
[facility] Data: Parking Manager Cardiac Status Clinical evaluation leading to the procedure CAD Presenation: Unstable angina Diagnostic Physicians Name: Solomon Amaral MD Closure Device Recommendations: Medical Therapy and/or Counseling Cardiac Cath Procedure Full Procedure Date July 23, 2024 Pre-Procedure Diagnosis Pre-Procedure Diagnosis: Angina AUC Score AUC Score: 7 Post-Procedure Diagnosis Post-Procedure Diagnosis: Moderate CAD and Normal Intracardiac Pressures Procedure(s) Performed Procedure(s) Performed: Coronary Angiography and Left Heart Cath Cover Remover Solomon Amaral MD [place] Inspector(s) [place] Estimated Blood Loss Estimated Blood Loss: 5 Medication(s) Medication(s): Fentanyl, Heparin, Lidocaine 1%, Nicardipine, Nitroglycerin and Versed Summary of Findings Indication: Concern for unstable angina Access: 6 Fr slender right radial artery Catheters: [place], diagnostic JL 3.5 Findings: LM -normal caliber, long vessel, no significant disease LAD -large-caliber vessel, IAN II flow, mid segment luminal irregularities, distal vessel without significant disease and wraps around apex. Large bifurcating D1 without disease. Circumflex -medium caliber, 50% ostial stenosis, remainder of AV groove circumflex without disease. Medium OM1, left PLB without disease. RCA -dominant, large caliber, IAN II flow, mid segment luminal irregularities. Distal RCA, medium RPDA and PLB's without significant disease. LVEDP -12 Arterial Closure: TR band Summary: 1. Moderate single-vessel coronary artery disease -50% ostial circumflex 2. Normal intracardiac filling pressure Recommendations: No acute or high risk CAD to explain recent chest pain. Medical management of nonobstructive CAD. Continued ASCVD risk factor modification and AF management per Dr. Shay Hemodynamics Rest Ao:: Final Ao: LV: 98/12 Recommendations Recommendations: Medical Therapy and/or Counseling Radiation Exposure (mGy) 1678 Contrast (mls) 60 Anesthesia Moderate 6164-3154 Procedural Complication(s) None Disposition PCU I attest to the content of the Intraoperative Record and any orders documented therein. Any exceptions are noted below. [facility] Card Cath Procedure Codes Cardiac Catheterization Procedure 1: Cardiovascular Cath Procedures: 35141 Coronaries and LHC (+/-LV) Moderate Sedation Procedure 1: Sedation/Anesthesia: 84500 Mod Sedation by the same physician;Init15 Min Child Age 5 & Up PG Care Time/CCT Total # of Minutes Spent Total Time Spent with Patient: Total time spent is greater than 50% in coordination of care (as documented) at patient's floor/unit and/or counseling patient:
--- NOTE | 2024-07-23 14:13 | Electrocardiogram Report ---
Test Reason : Blood Pressure : */* mmHG Vent. Rate : 96 BPM Atrial Rate : 234 BPM P-R Int : * ms QRS Dur : 96 ms QT Int : 356 ms P-R-T Axes : * 40 267 degrees QTcB Int : 449 ms Atrial fibrillation Nonspecific ST and T wave abnormality Abnormal ECG When compared with ECG of 22-Jul-2024 19:50, (unconfirmed) Non-specific change in ST segment in Inferior leads Confirmed by Kelvin Glass ([id number]) on 07/23/2024 2:13:22 PM Referred By: REFERRED SELF Confirmed By: Kelvin Glass
--- NOTE | 2024-07-23 14:15 | Communication Note ---
Date of Service: July 23, 2024 Cardiac catheterization films reviewed independently and case discussed with Dr. Amaral of interventional cardiology. Medical management recommended for treatment of the 50% ostial circumflex stenosis. Discontinue heparin. Resume Eliquis this evening at 2100. Discharge on aspirin 81 mg daily, Eliquis 5 mg twice daily, Metoprolol tartrate 50 mg twice daily, atorvastatin 40 mg daily. Outpatient cardiology follow-up will be arranged. Future considerations include direct-current cardioversion after patient has been on uninterrupted anticoagulation for 4 weeks.
[2024-07-23 14:23] VITALS: RESP 16; TEMP 97.3
--- NOTE | 2024-07-23 14:33 | Discharge Summary ---
Discharge Summary Date of Service July 23, 2024 Principal Dx & Hospital Course #1 = Principal Diagnosis (1) New onset atrial fibrillation: (2) CHERYL on CPAP: (3) BPH w urinary obs/LUTS: Notes For Next Care Provider Medication Changes From Visit Aspirin 81 mg daily Lipitor 40 mg daily Eliquis 5 mg twice daily Metoprolol 50 mg twice daily Admission HPI Per Admitting Provider This is a 74 y/o male with CHERYL on CPAP and hx of BPH who was sent to the ED today by his PCP for new onset atrial fibrillation. Pt's assists with the history. Four nights ago, pt woke up at 2 am and then again at 5 am with chest pain. At 5 am, he woke up his who checked his BP and found it to be elevated with systolic in the 150s, his pulse was also noted to be "high." Pt's takes atenolol so she gave the patient once of her pills and rechecked his BP two hours later but it was the same so she gave him another 1/2 tablet of atenolol. When she rechecked his BP again around noon that day, she reports that it had improved and pt was feeling better. The next night, he had similar symptoms, and she again gave him atenolol x 2 doses with improvement in his symptoms. At this point, she made pt an appointment to be seen at his PCP's office, which was today. When he was seen today, he had an EKG performed, which showed new onset of atrial fibrillation with rapid ventricular response so they referred the patient to the ED for further evaluation.Patient was seen and admitted because of atrial fibrillation RVR, he was managed eventually with metoprolol 25 mg every 6 hours which as of today will be changed to 50 mg twice daily. His [id number] score is a 1 however patient is prediabetic and at this age with his body mass, would be in favor of starting him on anticoagulation and this was discussed with cardiology as well who concur with the plan. Patient was seen by cardiology, recommendation was for ischemia workup, he agreed on cardiac catheterization which was done this morning, the result showed moderate single-vessel coronary artery disease about 50% of ostial circumflex and otherwise normal filling pressures, I reached cardiology and the plan is to discharge him on aspirin 81 mg daily, Lipitor 40 mg daily in addition to Eliquis 5 mg twice daily and metoprolol 50 mg twice daily. Patient was met after cardiac catheterization, we will proceed with discharging him home after few hours of rest postprocedure monitoring. Updated Medication List Medication Instructions Recorded Confirmed Type multivitamin (Daily Multi-Vitamin 1 tab PO DAILY 07/24/23 07/21/24 History tablet) tamsulosin 0.4 mg capsule 0.4 mg PO HS 07/24/23 07/21/24 History finasteride 5 mg tablet 5 mg PO DAILY #30 tabs 08/27/23 07/21/24 Rx apixaban 5 mg tablet (Eliquis) 5 mg PO BID #60 tabs 07/22/24 Rx metoprolol tartrate 50 mg tablet 50 mg PO BID #60 tabs 07/22/24 Rx aspirin 81 mg tablet,delayed 81 mg PO DAILY #30 tabs 07/23/24 Rx release atorvastatin 40 mg tablet (Lipitor) 40 mg PO HS #30 tabs 07/23/24 Rx Hospital Stay Data Consultations 07/21/24 15:12 ED Decision to Admit Stat 07/21/24 16:45 Consult Cardiology Routine Procedures Performed Operation Date: 07/23/24 11:00 Actual Procedures p Cineradiography w/Routine Exam - Solomon Amaral MD p Cath, Left with Cors and Vent - Solomon Amaral MD Diagnostic Imagining Performed 07/21/24 13:18 CT angio chest PE protocol Stat 07/23/24 10:10 CL Cath Imgs for PACS use only Routine Pending Results Patient Have Any Pending Studies at Discharge: No Discharge Instructions Given to Patient (Per Discharging Provider) Patient will remain on anticoagulation, he benefits from weight reduction Total Time Total Time Spent Total Time Spent (In Minutes): Less than 35-minute
[2024-07-23 15:22] VITALS: BP 112/76; PULSE 95; O2SAT 92
[2024-07-23] MEDS: ATORVASTATIN 40 MG TAB PO SCH (17:14)
== END 2024-07-23 17:56 | disposition home or self-care (01) | DRG 287 ==
LOC: ED 11:25 → SUATTDRO 16:04 → EDINP 16:04 → 2S 21:50

== ENCOUNTER 2024-08-16 15:30 | Inpatient (IN) ==
--- OUTSIDE RECORDS SUMMARY | 2024-08-16 15:34 | External Medical Summary | Summary of Care ---
Author Name Unknown Organization [facility] Address [address] [facility] [place] [address] Phone [phone] Care Team Providers Care It Audit Manager Name Role Phone Alok Guzman DO Primary Care Provider [phone] Encounter Details Date Type Department Care Team (Late st Contact Info) Description 08/10/2024 Population Health External Data Unspecified Department Allergies No known active allergiesdocumented as of this encounter (statuses as of 08/10/2024) Medications CPAP every night at bedtime. Active [...] 3 05/19/2024 5:54 PM EDT 4 Active Apixaban 5 MG Oral Tablet (Eliquis) Take 1 Tablet by mouth in the morning and 1 Tablet before bedtime. Active Aspirin 81 MG Oral Capsule Take by mouth. Active Atorvastatin Calcium 40 MG Oral Tablet (Lipitor) Take 1 Tablet by mouth in the morning. Active Metoprolol Tartrate 50 MG Oral Tablet (Lopressor) Take 1 Tablet by mouth in the morning and 1 Tablet before bedtime. 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 0 to 44.9 in adult 10/08/2023 07/30/2024 Body mass index (BMI) of 40. 0 to 44.9 in adult 10/30/2021 07/11/2023 Overview (07/11/2023): Per Obesity protocol historical Morbid obesity due to excess calories 01/16/2021 07/30/2024 Dizziness 01/31/2013 12/26/2017 Nausea with vomiting 01/31/2013 018 Acute suppurative otitis media 01/31/2013 12/26/2017 Skin carcinoma 04/13/2009 06/21/2020 ADVANCE DIRECTIVE INFORMATION 04/30/2008 12/26/2017 Overview (04/30/2008): No, Advance Directive brochure offered , patient declined. INFORMATION 06/27/2007 06/21/2020 Overview (12/16/2014): nonmelanoma skin cancer scalp: leiomyosarcoma FAMILY HX MALIG.NEOPLASM PROSTATE father 11/21/2005 12/26/2017 Palpitations 07/10/2001 12/26/2017 documented as of this encounter (statuses as of 08/10/2024) Immunizations Name Administration Dates Next Due DTWP [...] Date Recorded PHQ Adult Total Score 0 07/24/2024 Hunger Vital Sign Answer Date Recorded Within the past 12 months, y ou worried that your food would run out before you got the money to buy more. Never true 07/24/19 25 Within the past 12 months, t he food you bought just didn't last and you didn't have money to get more. Never true 07/24/2024 Childcare Answer Date Recorded Do you feel overwhelmed with taking care of a child, family member or friend? No 07/24/2024 Does your family need help f inding childcare? (Household - for ages 0-17 years) Not on file 07/24/2024 Clothing Answer Date Recorded Have you been unable to get clothing when it was really needed? No 07/24/2024 Is your family able to get c lothes or diapers when needed? (Household - for ages 0-17 years) Not on file 07/24/2024 Personal Safety Answer Date Recorded Do you feel unsafe or have concerns for your saf ety? No 07/24/2024 Do you have concerns for you r family's safety? (Household - for ages 0-17 years) Not on file 07/24/2024 Utilities Answer Date Recorded Do you have trouble paying y our heating, water, or electric bill? No 07/24/2024 Is your family able to pay t he heat, water, or electric bill? (Household - for ages 0-17 years) Not on file 07/24/2024 Does your family have access to good internet? (Household - for ages 0-17 years) Not on file 07/24/2024 Employment Status Answer Date Recorded Are you unemployed or without regular income? No 07/24/2024 Does the household have a re gular source of income? (Household - for ages 0-17 years) Not on file 07/24/2024 Social Connections Answer Date Recorded How often do you feel lonely or isolated from th ose around you? Never 07/24/2024 Financial Resource Strain Answer Date R ecorded Do you have any trouble payi ng for your medications, or do you think you might in the future? No 07/24/2024 Does your family have troubl e paying for medicine? (Household - for ages 0-17 years) Not on file 07/24/2024 Transportation Needs Answer Date Record ed Do you have trouble getting a ride to medical visits or work? (Adult - for ages 18 years and over) Not on file 07/24/2024 Does your family have a hard time getting a ride to doctors visits? (Household - for ages 0-17 years) Not on file 07/24/2024 Has lack of transportation k ept you from medical appointments, meetings, work, or from getting things needed for daily living? Check all that apply. No 07/24/2024 Do you (or your family) have trouble finding or paying for a ride (transportation)? (Household - for ages 0-17 years) Not on file 07/24/2024 Housing Stability Answer Date Recorded Do you currently live in a s helter or have no steady place to sleep at night? No 07/24/2024 Do you think you are at risk of becoming homeless? (Adult - for ages 18 years and over) Not on file 07/24/2024 Does your family worry about paying for your home or becoming homeless? (Household - for ages 0-17 years) Not on file 0 07/24/2024 Are you homeless or worried that you might be in the future? No 07/24/2024 Are you (or your family) peña eless or worried that you might be in the future? (Household - for ages 0-17 years) Not on file Food Insecurity Answer Date Recorded Do you need food for this week? No 07/24/2024 Are you able to get enough f ood for your family? (Household - for ages 0-17 years) Not on file 07/24/2024 Does your family need food t his week? (Household - for ages 0-17 years) Not on file 07/24/2024 Do you always have enough fo od for your family? 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 Not on file Not on file Not on file documented as of this encounter Plan of Treatment Upcoming Encounters Date Type Department Care Team (Late st Contact Info) Description 10/09/2024 9:20 AM EDT Office Visit Family Practice [facility] [address] [place] [address] Alok Guzman, DO [address] [place] [id number] 11/19/2024 11:00 AM EDT Office Visit Cardiology, [facility] [address] [facility] [place] [address] Partha Shay, DO [address] [facility] [place] [address] 12/23/2024 8:15 AM EDT Office Visit MOHS Surgery [facility] [address] [place] [address] Mirian Barragan MD [address] [place] [address] 03/17/2025 10:00 AM EDT Nurse Only Ancillary [facility] [place] [address] [place] [address] Marixa, Nurse Annual Wellness [place] [address] [place] [address] 05/31/2025 8:30 AM EST Office Visit Dermatology [facility] [address] [place] [address] Param Nolasco MD [address] [place] [address] 07/02/2025 11:00 AM EST Office Visit [facility] [address] [place] [id number] Laura Nunez DO [address] [place] [address] Scheduled Procedures Name Priority Associated Diagnoses Date/Ti me COLONOSCOPY FLEXIBLE PROXIMAL DIAGNOSTIC Recall History of colon polyps Health Maintenance Due Date Last Done Comments Fecal Occult Blood Test 1997 Sigmoidoscopy 1997 Cologuard 01/07/2021 01/07/2018 Influenza Vaccine (FLU shot) (#1) 2024 04/14/2009, 06/22/2006, 07/11/2001 DTap/Tdap Vaccines (3 - Td or Tdap) 10/09/2024 02/04/2013, 03/20/2007, 03/20/2007 Postponed from 02/04/2023 (Not Indicated) Adult Wellness Visit 03/13/2025 03/13/2024, 12/21/2022, 03/21/2022, Additional history exists Colonoscopy 06/13/2025 06/13/2020, 05/23, 12/11/2005 Colorectal Cancer Screening 06/13/2025 Depression Screening 07/24/2025 07/24/2024, 03/13/2024, 12/16/2014 (Discussed) Pneumococcal Vaccine: 50+ Years Discontinued 04/13/2009 RETIRED [...] this encounter Medical Devices Implanted Type Area Level 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 Care Teams It Audit Manager Relationship Specialty Start Date End Date Alok Guzman DO [address] [place] [id number] PCP - General Family Medicine 10/09/22 documented as of this encounter
--- OUTSIDE RECORDS SUMMARY | 2024-08-16 15:35 | External Medical Summary | Summary of Care ---
Author Name Unknown Organization [facility] Address [address] [place] [address] Phone [phone] Care Team Providers Care Printed Circuit Board Panels Trimmer Name Role Phone Alok Guzman DO Primary Care Provider [phone] Reason for Visit * Reason Onset Date Comments Referral 08/04/2024 Encounter Details Date Type Department Care Team (Late st Contact Info) Description 08/04/2024 New Patient Triage (FARM EQUIPMENT SERVICE TECHNICIAN USE ONLY) Cardiology, [facility] [address] [facility] [place] [address] Samantha Lobato CRNP [address] [place] [address] Referral Allergies No known active allergiesdocumented as of this encounter (statuses as of 08/04/2024) Medications CPAP every night at bedtime. Active [...] as of this encounter (statuses as of 08/04/2024) Active Problems Problem Noted Date Diagnosed Date Class 2 severe obesity due t o excess calories with serious comorbidity and body mass index (BMI) of 38.0 to 38.9 in adult 07/30/2024 Persistent atrial fibrillation 07/30/2024 BPH with obstruction/lower urinary tract symptom s 07/30/2024 Coronary artery disease invo lving [place] heart without angina pectoris 07/30/2024 Lesion of [...] as of this encounter (statuses as of 08/04/2024) Resolved Problems Problem Noted Date Diagnosed Date [...] as of this encounter (statuses as of 08/04/2024) Immunizations Name Administration Dates Next Due DTWP [...] 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 Amaral Cath - No intervention, no acute or high risk CAD to explain CP. Medical mgmt of nonobstructive CAD. Continued ASCVD risk factor modification and AF mgmt per Dr. Shay Discussed care plan with patient or proxy?: Yes Communicated with patient on 08/04/2024 at 11:54 AM INFO FROM CARDIAC REFERRAL New onset a-fib, CAD, recent hospitalization, needs to establish with cardiology APPOINTMENT INFO: 11/19/2024 11:00 AM Cardiology Partha Salazar DO PCP/REFERRING Progress Notes Blessing Montelongo MD (Physician) Family Medicine Subjective Chief Complaint Patient presents with Hospital Follow-Up HPI: Edmond Bear is a 74 year old male. The following issues were addressed today: Date of admission: 07/21/24 Date of discharge: 07/23/24 Date of [place]IL[place] phone call: 07/24/24 Hospital course: Patient sent to [facility] ER on 07/21/24 with new onset atrial fibrillation with RVR. He was admitted. Started on metoprolol which was titrated up to 50mg BID. [id number] score of 1 butstarted on Eliquis due to prediabetes and BMI. He underwent cardiac catheterization which showed moderate single- vessel coronary artery disease. He was started on ASA 81mg and atorvastatin 40mg daily. Tests/studies pending at time of discharge: None Home/outpatient services ordered: None Course since hospitalization: Patient presents today with his . He reports he is feeling well and denies chest pain, shortness of breath, headache, or dizziness. His has been taking his blood pressure at home and readings have been well-controlled. He is taking ASA, Lipitor, Eliquis, and Toprol as prescribed. No questions about medications. He needs a referral to see cardiology. Assessment & Plan 1. Hospital discharge follow-up - DISCH MED RECON CUR MED LIS 2. Persistent atrial fibrillation (HCC) New onset, now rate controlled on Toprol 50mg BID. Continue anticoagulation with Eliquis 5mg BID. Cardiology referral ordered. - CARDIOLOGY REFERRAL OP 3. Coronary artery disease involving [place] heart without angina pectoris, unspecified vessel or lesion type Results of catheterization reviewed. Continue ASA 81mg and atorvastatin 40mg. Cardiology referral ordered. - CARDIOLOGY REFERRAL OP 4. Obstructive sleep apnea of adult On CPAP. Not getting good seal currently, needs new equipment. Chart reviewed and recent DME order was sent by sleep medicine. 5. Class 2 severe obesity due to excess calories with serious comorbidity and body mass index (BMI)of 38.0 to 38.9 in adult (HCC) Continue healthy diet, regular physical activity. 6. BPH with obstruction/lower urinary tract symptoms Stable. Continue tamsulosin 0.4mg daily. 7. Influenza vaccination declined EKG/ECHO/ZIO/CARDIAC TESTING 07/22/2024 4:32 PM - Interface, Sample Steamer Narrative & Impression REASON FOR STUDY: IRREGULAR RHYTHM CONCLUSIONS: Atrial fibrillation with rapid ventricular response T wave abnormality, consider lateral ischemia Abnormal ECG When compared with ECG of 03-Feb-2016 10:00, Atrial fibrillation has replaced Sinus rhythm Vent. rate has increased by 46 bpm Non-specific change in ST segment in Lateral leads Nonspecific T wave abnormality now evident in Inferior leads Inverted T waves have replaced nonspecific T wave abnormality in Lateral leads QT has lengthened Ventricular Rate: 105 Atrial Rate: 125 QRS Duration: 94 QT/QTc: 338/446 ms P-R-T [place]: 0 : 61 : -69 degrees LABS No Recent MEDICATIONS Apixaban 5 MG Oral Tablet (Eliquis) Aspirin 81 MG Oral Capsule Atorvastatin Calcium 40 MG Oral Tablet (Lipitor) Metoprolol Tartrate 50 MG Oral Tablet (Lopressor) Finasteride 5 MG Oral Tablet (Proscar) Tamsulosin HCl 0.4 MG Oral Capsule (Flomax) Multivitamin Adults 50+ Oral Tablet Zinc Picolinate Powder CPAP documented in this encounter Plan of Treatment Upcoming Encounters Date Type Department Care Team (Late st Contact Info) Description 08/06/2024 11:30 AM EST Office Visit Otolaryngology [facility] [address] [place] [address] Heath Painting PA-C [address] [place] [address] 10/09/2024 9:20 AM EDT Office Visit Family Practice [facility] [address] [facility] [address] Alok Guzman DO [address] [facility] [place] [address] 11/19/2024 11:00 AM EDT Office Visit Cardiology, [facility] [address] [place] [address] Partha Shay, DO [address] [place] [address] 12/23/2024 8:15 AM EDT Office Visit MOHS Surgery [facility] [address] [place], [place] [address] Mirian Barragan MD [address] [facility] [address] 03/17/2025 10:00 AM EDT Nurse Only Ancillary [facility] [place] [address] [place] [address] Park, Nurse Annual Wellness [facility] [address] [facility] [place] [address] 05/31/2025 8:30 AM EST Office Visit Dermatology [facility] [address] [place] [address] Param Nolasco MD [address] [facility] [place] [address] 07/02/2025 11:00 AM EST [facility] [place] [address] [place] [id number] Laura Nunez, [address] [place] [address] Scheduled Procedures Name Priority Associated Diagnoses Date/Ti [...] this encounter Medical Devices Implanted Type Area Steak Sauce Maker Device Identifier Shelf Expiration Date Model / Serial / Lot Lens Intraoc 22.5 - [id number] - [id number] Implanted:Qty: 1 on 01/07/2018 by Andres Ty MD at OR [facility] Right: Eye [employer]OM[employer] 08/21/2022 [id number] / [id number] / [id number] Lens Intraoc 22.5 - [id number] - [id number] Implanted:Qty: 1 on 01/16/2018 by Andres Ty MD at OR [facility] Left: Eye [employer] LOMB 06/20/2022 [id number] / [id number] / [id number] documented as of this encounter Advance Directives [...] and were consensually agreed upon. Care Teams Printed Circuit Board Panels Trimmer Relationship Specialty Start Date End Date Alok Guzman DO [address] [place], [place] [address]justen [facility] [place] [address] PCP - General Family Medicine 10/09/22 documented as of this encounter
--- OUTSIDE RECORDS SUMMARY | 2024-08-16 15:35 | External Medical Summary | Summary of Care ---
Author Name Unknown Organization [facility] Address [address] [place] [address] Phone [phone] Care Team Providers Care Sole Stainer Name Role Phone Alok Guzman DO Primary Care Provider [phone] Encounter Details Date Type Department Care Team (Late st Contact Info) Description 07/23/2024 Referral Triage Care Coordination and Integration [address] [place], [place] [id number] Jennifer Car, CHERYL [address], [place] [id number] Allergies No known active allergiesdocumented as of this encounter (statuses as of 07/23/2024) Medications CPAP every night at bedtime. 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 [address] [facility] [place] [address] Alok Guzman, [address] [facility] [place] [address] 12/23/2024 8:15 AM EDT Office Visit [facility]HS Surgery [facility] [address] [facility] [address] [place] [address] Mirian Barragan MD [address] [facility] [place] [address] 03/17/2025 10:00 AM EDT Nurse Only Ancillary [facility] [place] [address] [facility] [place] [address] [place], Nurse Annual Wellness [place] [address] [address] [place] [address] 05/31/2025 8:30 AM EST Office Visit Dermatology [facility] [place] [address] [facility] [place] [address] Param Nolasco MD [address] [facility] [place] [address] Scheduled Procedures Name Priority Associated Diagnoses Date/Ti [...] this encounter Medical Devices Implanted Type Area Rental Manager Device Identifier Shelf Expiration Date Model / Serial / Lot Lens Intraoc 22.5 - [id number] - [id number] Implanted:Qty: 1 on 01/07/2018 by Andres Ty MD at OR [facility] Right: Eye [employer]OM[employer] 08/21/2022 [id number] / [id number] / [id number] Lens Intraoc 22.5 - [id number] - [id number] Implanted:Qty: 1 on 01/16/2018 by KarsonAndres william MD at OR [facility] Left: Eye [employer]CH [employer]OM[employer] 06/20/2022 [id number] / [id number] / [id number] documented as of this encounter Advance Directives [...] and were consensually agreed upon. Care Teams Sole Stainer Relationship Specialty Start Date End Date Alok Guzman DO [address] [place] [address], [place] [address] PCP - General Family Medicine 10/09/22 documented as of this encounter
--- OUTSIDE RECORDS SUMMARY | 2024-08-16 15:35 | External Medical Summary | Summary of Care ---
Author Name Unknown Organization [facility] Address [address] [facility] [place] [address] Phone [phone] Care Team Providers Care Oil Developer Name Role Phone Alok Guzman DO Primary Care Provider [phone] Encounter Details Date Type Department Care Team (Late st Contact Info) Description 07/24/2024 Orders Only Sleep Disorders Ctr [facility] [address] [place] [address] Laura Nunez DO [address] [place] [address] CHERYL (obstructive sleep apnea)* Allergies No known active allergiesdocumented as of this encounter (statuses as of 07/24/2024) Medications CPAP every night at bedtime. 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 Not on file Not on file documented as of this encounter Progress Notes * Laura Nunez DO - 07/24/2024 4:48 PM EST Order placed for PAP equiptment documented in this encounter Plan of Treatment Upcoming Encounters Date Type Department Care Team (Late st Contact Info) Description 07/30/2024 8:20 AM EST Office Visit [facility] [address] [place] [address] Blessing Montelongo MD [address] [place] [address] 08/06/2024 11:30 AM EST [facility] [address] [place] [address] Heath Painting PA-C [address] [place] [address] 10/09/2024 9:20 AM EDT Office Visit [facility] [address] [place] [address] Alok Guzman, DO [address] [facility] [place] [address] 12/23/2024 8:15 AM EDT Office Visit [facility] Surgery [facility] [address] [place] [address] Mirian [facility]agan [facility] [address] 03/17/2025 10:00 AM EDT Nurse Only Ancillary [facility] [place] [address] [facility] [place] [address] [place], Nurse Annual Wellness [facility] [address] [facility] [place], [place] [address] 05/31/2025 8:30 AM EST Office Visit Dermatology [facility] [place] [address] [place] [address] Param Nolasco MD [address] [place] [address] [place] [address] Scheduled Procedures Name Priority Associated Diagnoses Date/Ti [...] Depression Screening 07/24/2025 07/24/2024, 03/13/2024, 12/16/2014 (Discussed) Lipid Panel 03/09/2027 03/09/2022, 02/20, 12/17/2014, Additional [...] this encounter Medical Devices Implanted Type Area Cellophane Tester Device Identifier Shelf Expiration Date Model / Serial / Lot Lens Intraoc 22.5 - [id number] - [id number] Implanted:Qty: 1 on 01/07/2018 by Andres Ty MD at OR [facility] Right: Eye [employer]OM[employer] 08/21/2022 [id number] / [id number] / [id number] Lens Intraoc 22.5 - [id number] - [id number] Implanted:Qty: 1 on 01/16/2018 by Andres Ty MD at OR [facility] Left: Eye BAUSCH [employer] LOMB 06/20/2022 [id number] / [id number] / [id number] documented as of this encounter Visit Diagnoses Diagnosis CHERYL (obstructive sleep apnea)- Primary Obstructive sleep apnea (adult) (pediatric) documented in [...] and were consensually agreed upon. Care Teams Oil Developer Relationship Specialty Start Date End Date Alok Guzman DO [address] [place] [address] PCP - General Family Medicine 10/09/22 documented as of this encounter
--- OUTSIDE RECORDS SUMMARY | 2024-08-16 15:35 | External Medical Summary | Summary of Care ---
Author Name Unknown Organization [facility] Address [address] [place] [address] Phone [phone] Care Team Providers Care Mining Speculator Name Role Phone Alok Guzman DO Primary Care Provider [phone] Reason for Referral * Evaluate & Treat - Unlimited Visits (Within 10 days (routine)) - Authorized Specialty Diagnoses / Procedures Referred By Rory velez Referred To Contact Cardiovascular Medicine / Cardiology Diagnoses Persistent atrial fibrillation (HCC) Coronary artery disease involving koi heart without angina pectoris, unspecified vessel or lesion type Blessing Montelongo MD [address] [place] [address] Phone: tel: fax: Referral ID Status Reason Start Date Expiration Date Visits Requested Visits Authorized [id number] Authorized Specialty Services Required 07/30/2024 999 999 Question Answer Referral Priority Within 10 days (routine) Where should this appointment be scheduled? [facility] To which of the following clinics are you referring your patient? General Cardiology Clinic Comments New onset a-fib, CAD, recent hospitalization, needs to establish with cardiology Reason for Visit * Reason Comments Hospital Follow-Up Encounter Details Date Type Department Care Team (Late st Contact Info) Description 07/30/2024 8:20 AM EST Office Visit Family Practice [facility] [address] [place] [address] Blessing Montelongo MD [address] [place] [address] Hospital discharge follow-up*; Persistent atrial fibrillation (HCC); Coronary artery disease involving koi heart without angina pectoris, unspecified vessel or lesion type; Obstructive sleep apnea of adult; Class 2 severe obesity due to excess calories with serious comorbidity and body mass index (BMI) of 38.0 to 38.9 in adult (HCC); BPH with obstruction/lower urinary tract symptoms; Influenza vaccination declined Allergies No known active allergiesdocumented as of this encounter (statuses as of 07/30/2024) Medications CPAP every night at bedtime. Active [...] as of this encounter (statuses as of 07/30/2024) Active Problems Problem Noted Date Diagnosed Date Class 2 severe obesity due t o excess calories with serious comorbidity and body mass index (BMI) of 38.0 to 38.9 in adult 07/30/2024 Persistent atrial fibrillation 07/30/2024 BPH with obstruction/lower urinary tract symptom s 07/30/2024 Coronary artery disease invo lving koi heart without angina pectoris 07/30/2024 Lesion of [...] as of this encounter (statuses as of 07/30/2024) Resolved Problems Problem Noted Date Diagnosed Date [...] as of this encounter (statuses as of 07/30/2024) Immunizations Name Administration Dates Next Due DTWP [...] 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 file Not on file documented as of this encounter Last Filed Vital Signs Vital Sign Reading Time Taken Comments Blood Pressure 104/78 07/30/2024 8:15 AM EST Pulse 52 07/30/2024 8:15 AM EST Temperature 35.9 C (96.6 F) 07/30/2024 8:15 AM ES T Respiratory Rate 16 07/30/2024 8:15 AM EST Oxygen Saturation 92% 07/30/2024 8:15 AM EST Inhaled Oxygen Concentration - - Weight 111.6 kg (246 lb 1.9 oz) 07/30/2024 8:15 AM EST Height - - Body Mass Index 38.18 07/09/2024 11:35 AM EST documented in this encounter Progress Notes * Blessing Montelongo MD - 07/30/2024 8:20 AM EST Subjective Chief Complaint Patient presents with Hospital Follow-Up HPI: Edmond Bear is a 74 year old male. The following issues were addressed today: Date of admission: 07/21/24 Date of discharge: 07/23/24 Date of WILTON phone call: 07/24/24 Hospital course: Patient sent to [facility] ER on 07/21/24 with new onset atrial fibrillation with RVR. He was admitted. Started on metoprolol which was titrated up to 50mg BID. [id number] score of 1 butstarted on Eliquis due [...] He needs a referral to see cardiology. Review of Systems: See HPI Objective BP 104/78 | Pulse 52 | Temp 96.6 F (35.9 C) (Tympanic) | Resp 16 | Wt 246 lb 1.9 oz (111.6 kg) | SpO2 92% | BMI 38.18 kg/m | BSA 2.3 m Wt Readings from Last 3 Encounters: 07/30/24 246 lb 1.9 oz (111.6 kg) 07/21/24 240 lb (108.9 kg) 07/09/24 239 lb (108.4 kg) BP Readings from Last 3 Encounters: 07/30/24 104/78 07/21/24 110/80 07/09/24 142/89 General: Well-appearing, no acute distress Cardiovascular: Normal rate, irregularly irregular rhythm Respiratory: Good respiratory effort, breath sounds equal and clear to auscultation bilaterally Extremities: No edema Neurological: Alert and oriented, no focal deficits noted Psychiatric: Appropriate mood and affect Assessment & Plan 1. Hospital discharge follow-up - DISCH MED RECON CUR MED LIS 2. Persistent atrial fibrillation (HCC) New onset, now rate controlled on Toprol 50mg BID. Continue anticoagulation with Eliquis 5mg BID. Cardiology referral ordered. - CARDIOLOGY REFERRAL OP 3. Coronary artery disease involving koi heart without angina pectoris, unspecified vessel or [...] tamsulosin 0.4mg daily. 7. Influenza vaccination declined Follow Up: Return for follow-up as scheduled or sooner as needed. Check-out note: Cardiology referral This note was electronically signed by Blessing Montelongo MD documented in this encounter Nursing Notes * Fatuma Armstrong LPN - 07/30/2024 8:11 AM EST Edmond Bear presents for hospital follow up. Medications & HM reviewed. documented in this encounter Plan of Treatment Upcoming Encounters Date Type Department Care Team (Late st Contact Info) Description 08/06/2024 11:30 AM EST Office Visit Otolaryngology [facility] [address] [place] [address] Heath Painting PA-C [address] [place] [address] 10/09/2024 9:20 AM EDT Office Visit Family Practice [facility] 200 [facility] [place] [address] Alok Guzman, DO [address] [place] [place] [address] 11/19/2024 11:00 AM EDT Office Visit Cardiology, [facility] [address] [place] [address] Partha Shay, DO 132 [facility] [place] [address] 12/23/2024 8:15 AM EDT Office Visit MOHS Surgery [facility] [place] [address] [place] [address] Mirian Barragan MD 200 [facility] [place] [address] 03/17/2025 10:00 AM EDT Nurse Only Ancillary [facility] [place] [address] [place] [address] [place]ixa, Nurse Annual Wellness [place] [address] [address] [place] [address] 05/31/2025 8:30 AM EST Office Visit Dermatology [facility] [place] [address] [place] [address] Param Nolasco MD 200 [facility] [place] [address] 07/02/2025 11:00 AM EST Office Visit [facility] [place] [address] [place] [phone] Laura Nunez DO [address] [place] [address] Scheduled Procedures Name Priority Associated Diagnoses Date/Ti me COLONOSCOPY FLEXIBLE PROXIMAL DIAGNOSTIC Recall History of colon polyps Scheduled Referrals Name Type Priority Associated Diagnoses Orde r Schedule CARDIOLOGY REFERRAL OP Referral Within 10 days (routine) Persistent atrial fibrillation (HCC) Coronary artery disease involving koi heart without angina pectoris, unspecified vessel or lesion type Ordered: 07/30/2024 Health Maintenance Due Date Last Done Comments [...] this encounter Medical Devices Implanted Type Area Manager Sterile Device Identifier Shelf Expiration Date Model / Serial / Lot Lens Intraoc 22.5 - [id number] - [id number] Implanted:Qty: 1 on 01/07/2018 by Andres Ty MD at OR [facility] Right: Eye [employer]OM[employer] 08/21/2022 [id number] / [id number] / [id number] Lens Intraoc 22.5 - [id number] - [id number] Implanted:Qty: 1 on 01/16/2018 by Andres Ty MD at OR [facility] Left: Eye BAUSCH [employer] LOMB 06/20/2022 [id number] / [id number] / [id number] documented as of this encounter Visit Diagnoses Diagnosis Hospital discharge follow-up- Primary Other follow-up examination Persistent atrial fibrillation (HCC) Atrial fibrillation Coronary artery disease involving koi heart without angina pectoris, unspecified vessel or lesion type Obstructive sleep apnea of adult Obstructive sleep apnea (adult) (pediatric) Class 2 severe obesity due to excess calories with serious comorbidity and body mass index (BMI) of 38.0 to 38.9 in adult (HCC) BPH with obstruction/lower urinary tract symptoms Hypertrophy of prostate with urinary obstruction and other lower urinary tract symptoms (LUTS) Influenza vaccination declined Vaccination not carried out because of patient refusal documented in this encounter Advance Directives * Full Code (Latest Code Status on File) Date Activated Date Inactivated Comments 01/16/2018 11:43 AM 01/16/2018 6:14 PM This order reflects the patients wishes and were consensually agreed upon. * Full Code Date Activated Date Inactivated Comments 01/07/2018 11:40 AM 01/07/2018 5:31 PM This order reflects the patients wishes and were consensually agreed upon. Care Teams Mining Speculator Relationship Specialty Start Date End Date Alok Guzman DO [address] [place] [address] PCP - General Family Medicine 10/09/22 documented as of this encounter"
--- OUTSIDE RECORDS SUMMARY | 2024-08-16 15:35 | External Medical Summary | Summary of Care ---
Author Name Unknown Organization [facility] Address [address] [place] [place] [address] Phone [phone] Care Team Providers Care Data Security Analyst Name Role Phone Alok Guzman DO Primary Care Provider [phone] Reason for Visit * Reason Onset Date Comments case management 07/24/2024 Encounter Details Date Type Department Care Team (Late st Contact Info) Description 07/24/2024 Telephone Family Practice [facility] [place] [address] [facility] [place] [address] Alok Guzman DO 200 [facility] [place] [address] case management Allergies No known active allergiesdocumented as of this encounter (statuses as of 07/27/2024) Medications CPAP every night at bedtime. 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 The order will be submitted. * Addendum Note - Andrew Nunez DO - 07/24/2024 4:47 PM ESTAddended by: ANDREW NUNEZ on: 07/24/2024 04:47 PM Modules accepted: Orders * Telephone Encounter - Domi Montiel RN - 07/24/2024 4:28 PM EST Patient needs new CPAP Supplies. states that she has called multiple times with no response. She states that he needs "headgear and plastic piece for nose." She states that what he has is too loose and he is not getting a seal. Patient was just discharged from [facility] with new diagnosis of Afib. Can someone from sleep med please assist with this matter?? Thank you! Domi Montiel RN Case Manager [facility] Internal Medicine/Family Practice [facility] [phone] documented in this encounter Plan of Treatment Upcoming Encounters Date Type Department Care Team (Late st Contact Info) Description 07/30/2024 8:20 AM EST Office Visit [facility] [address] [place] [address] Blessing Montelongo MD 200 [facility] [place] [address] 08/06/2024 11:30 AM EST Office Visit Otolaryngology [facility] [address] [place] [address] Heath Painting PA-C [address] [place] [address] 10/09/2024 9:20 AM EDT Office Visit [facility] [address] [place] [address] Alok Guzman, [address] [place] [address] 12/23/2024 8:15 AM EDT Office Visit MOHS Surgery [facility] [place] [address] [place] [address] Mirian Barragan MD 200 [facility] [place] [address] 03/17/2025 10:00 AM EDT Nurse Only Ancillary [facility] Marixa [place] [address] [place] [address] Marixa, Nurse Annual Wellness [facility] [address] [place] [address] 05/31/2025 8:30 AM EST Office Visit Dermatology [facility] [place] [address] [place] [address] Param Nolasco MD 200 [facility] [place] [address] Scheduled Procedures Name Priority Associated Diagnoses Date/Ti [...] this encounter Medical Devices Implanted Type Area Air Traffic Supervisor Device Identifier Shelf Expiration Date Model / Serial / Lot Lens Intraoc 22.5 - [id number] - [id number] Implanted:Qty: 1 on 01/07/2018 by Andres Ty MD at [facility] Right: Eye [employer] 08/21/2022 [id number] / [id number] / [id number] Lens Intraoc 22.5 - [id number] - [id number] Implanted:Qty: 1 on 01/16/2018 by Andres Ty MD at OR [facility] Left: Eye [employer]CH [employer] LOMB 06/20/2022 [id number] / [id number] / [id number] documented as of this encounter Visit Diagnoses [...] and were consensually agreed upon. Care Teams Data Security Analyst Relationship Specialty Start Date End Date Alok Guzman DO [address] [place] [address] PCP - General Family Medicine 10/09/22 documented as of this encounter
--- OUTSIDE RECORDS SUMMARY | 2024-08-16 15:35 | External Medical Summary | Summary of Care ---
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 Not on file documented as of this encounter Plan of Treatment Upcoming Encounters Date Type Department Care Team (Late st Contact Info) Description 07/30/2024 8:20 AM EST Office Visit [facility] [address] [place] [address] Blessing Montelongo MD [address] [place] [address] 08/06/2024 11:30 AM EST Office Visit Otolaryngology [facility] [address] [place] [address] Heath Painting PA-C [address] [place] [address] 10/09/2024 9:20 AM EDT Office Visit [facility] [address] [place] [address] Alok Guzman, [address] [place] [address] 12/23/2024 8:15 AM EDT Office Visit MOHS Surgery [facility] [place] [address] [place], [place] [address] Mirian Barragan MD [address] [place] [address] 03/17/2025 10:00 AM EDT Nurse Only Ancillary [facility] [address] [place] [address] Marixa, Nurse Annual Wellness [facility] [address] [place] [address] 05/31/2025 8:30 AM EST Office Visit Dermatology [facility] [place] [address] [place] [address] Param Nolasco MD [address] [place] [address] Scheduled Procedures Name Priority Associated Diagnoses Date/Ti [...] this encounter Medical Devices Implanted Type Area Pari Mutuel Ticket Seller Device Identifier Shelf Expiration Date Model / Serial / Lot Lens Intraoc 22.5 - [id number] - [id number] Implanted:Qty: 1 on 01/07/2018 by Andres Ty MD at OR [facility] Right: Eye [employer]OMB 08/21/2022 [id number] / [id number] / [id number] Lens Intraoc 22.5 - [id number] - [id number] Implanted:Qty: 1 on 01/16/2018 by Andres Ty MD at OR [facility] Left: Eye BAUSCH [employer] LOMB 06/20/2022 [id number] / [id number] / [id number] documented as of this encounter Procedures Procedure Name Priority Date/Time Associated Diagnosis Comments CARDIAC CATH SCANNED RESULT 07/23/2024 documented in this encounter Results * CARDIAC CATH SCANNED RESULT (07/23/2024) 07/23/2024 us No Physician Data Unknown CARD CATH Final Result documented in this encounter Advance Directives * Full Code (Latest Code Status on File) Date Activated Date Inactivated Comments 01/16/2018 11:43 AM 01/16/2018 6:14 PM This order reflects the patients wishes and were consensually agreed upon. * Full Code Date Activated Date Inactivated Comments 01/07/2018 11:40 AM 01/07/2018 5:31 PM This order reflects the patients wishes and were consensually agreed upon. Care Teams Ross Carrier Driver Relationship Specialty Start Date End Date Alok Guzman DO [address] [place] [address] PCP - General Family Medicine 10/09/22 documented as of this encounter
--- OUTSIDE RECORDS SUMMARY | 2024-08-16 15:35 | External Medical Summary | Summary of Care ---
Author Name Unknown Organization [facility] Address [address] [place] [address] Phone [phone] Care Team Providers Care Quality Improvement Manager Name Role Phone Alok Guzman DO Primary Care Provider [phone] Reason for Visit * Reason Onset Date Comments Referral 08/04/2024 Encounter Details Date Type Department Care Team (Late st Contact Info) Description 08/04/2024 New Patient Triage (RADIO OFFICER USE ONLY) Cardiology, [facility] [address] [facility] [place] [address] Samantha Lobato CRNP [address] [place] [address] Referral Allergies No known active allergiesdocumented as of this encounter (statuses as of 08/09/2024) Medications CPAP every night at bedtime. Active [...] as of this encounter (statuses as of 08/09/2024) Active Problems Problem Noted Date Diagnosed Date Class 2 severe obesity due t o excess calories with serious comorbidity and body mass index (BMI) of 38.0 to 38.9 in adult 07/30/2024 Persistent atrial fibrillation 07/30/2024 BPH with obstruction/lower urinary tract symptom s 07/30/2024 Coronary artery disease invo lving [place] heart without angina pectoris 07/30/2024 Lesion of [...] as of this encounter (statuses as of 08/09/2024) Resolved Problems Problem Noted Date Diagnosed Date [...] as of this encounter (statuses as of 08/09/2024) Immunizations Name Administration Dates Next Due DTWP [...] No 07/24/2024 Does the household have a [facility] source of income? 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 Recent cardiac cath Dr. Amaral [id number] CAD, no intervention, med management. Will need EKG, echo and [facility] not [facility] in) Appropriate referral Thank you, SHANNON Marx Cardiology [facility] * Trupti Guthrie LPN - 08/04/2024 11:53 AM EST New Patient Triage What is the diagnosis/reason for referral?: Persistent atrial fibrillation (HCC) [I48.19] Coronary artery disease involving [place] heart without angina pectoris, unspecified vessel or lesion type [I25.10] Enter order ID here: [id number] Specialty specific documentation: Cardiology Structural Heart [facility] 07/21/24 New onset Afib, On DOAC [...] call: 07/24/24 Hospital course: Patient sent to [facility] ER on 07/21/24 with new onset atrial fibrillation with RVR. He was admitted. Started on metoprolol which was titrated up to 50mg BID. [id number] score of 1 butstarted on Eliquis due [...] REFERRAL OP 3. Coronary artery disease involving [place] heart without angina pectoris, unspecified vessel or [...] EKG/ECHO/ZIO/CARDIAC TESTING 07/22/2024 4:32 PM - Interface, Mri Specialist Narrative & Impression REASON FOR STUDY: IRREGULAR [...] QRS Duration: 94 QT/QTc: 338/446 ms P-R-T [place]: 0 : 61 : -69 degrees LABS [...] Description 10/09/2024 9:20 AM EDT Office Visit [facility] [place] [address] [place] [address] Alok Guzman, DO [address] [facility] [place] [address] 11/19/2024 11:00 AM EDT Office Visit [facility]iology, [facility] [place] [address] Partha Shay, DO 132 [facility] [place] [address] 12/23/2024 8:15 AM EDT Office Visit MOHS Surgery [facility] [address] [place] [address] Mirian Barragan MD [address] [place] [address] 03/17/2025 10:00 AM EDT Nurse Only Ancillary [facility] [address] [place] [address] [place], Nurse Annual Wellness [facility] [address] [facility] [place] [address] 05/31/2025 8:30 AM EST Office Visit Dermatology [facility] [address] [place] [address] Param Nolasco MD 200 [place] [address] 07/02/2025 11:00 AM EST Office Visit [facility] [place] [phone] Laura Nunez, DO 132 [facility] [place] [address] Scheduled Procedures Name Priority Associated Diagnoses Date/Ti [...] this encounter Medical Devices Implanted Type Area Apiculturist Device Identifier Shelf Expiration Date Model / Serial / Lot Lens Intraoc 22.5 - [id number] - [id number] Implanted:Qty: 1 on 01/07/2018 by Andres Ty MD at OR [facility] Right: Eye [employer]OMB 08/21/2022 [id number] / [id number] / [id number] Lens Intraoc 22.5 - [id number] - [id number] Implanted:Qty: 1 on 01/16/2018 by Andres Ty MD at OR [facility] Left: Eye BAUSCH [employer] LOMB 06/20/2022 [id number] / [id number] / [id number] documented as of this encounter Advance Directives [...] and were consensually agreed upon. Care Teams Quality Improvement Manager Relationship Specialty Start Date End Date Alok Guzman DO [address] [place] [address] PCP - General Family Medicine 10/09/22 documented as of this encounter
--- OUTSIDE RECORDS SUMMARY | 2024-08-16 15:35 | External Medical Summary | Summary of Care ---
Author Name Unknown Organization [facility] Address [address] [place] [facility] [place] [address] Phone [phone] Care Team Providers Care Supervisor Partial Denture Department Name Role Phone Alok Guzman DO Primary Care Provider [phone] Reason for Visit * Reason Onset Date Comments case management 07/24/2024 Encounter Details Date Type Department Care Team (Late st Contact Info) Description 07/24/2024 Telephone Family Practice [facility] [place] 200 [facility] [place] [address] Alok Guzman DO 200 [facility] [place] [address] case management Allergies No known active allergiesdocumented [...] 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 Patient was just discharged from [facility] with new diagnosis of Afib. Can someone from sleep med please assist with this matter?? Thank you! Domi Montiel RN Case Manager [facility] Internal Medicine/Family Practice [facility] [phone] documented in this encounter Plan of Treatment Upcoming Encounters Date Type Department Care Team (Late st Contact Info) Description 07/30/2024 8:20 AM EST Office Visit [facility] [address] [place] [address] Blessing Montelongo MD 200 [facility] [place] [address] 08/06/2024 11:30 AM EST Office Visit Otolaryngology [facility] [address] [place] [address] Heath Painting PA-C [address] [place] [address] 10/09/2024 9:20 AM EDT Office Visit [facility] [address] [place] [address] [address] Alok Guzman, [address] [place] [address] 12/23/2024 8:15 AM EDT Office Visit MOHS Surgery [facility] [place] [address] [place] [address] Mirian Barragan MD 200 [facility] [place] [address] 03/17/2025 10:00 AM EDT Nurse Only Ancillary [facility] [place] [address] [place] [address] Marixa, Nurse Annual Wellness [facility] [address] [place] [address] 05/31/2025 8:30 AM EST Office Visit Dermatology [facility] [place] [address] [place] [address] [address] Param Nolasco MD 200 [facility] [place] [address] Scheduled Procedures Name Priority Associated Diagnoses Date/Ti [...] this encounter Medical Devices Implanted Type Area Boiler/Chiller Technician Device Identifier Shelf Expiration Date Model / Serial / Lot Lens Intraoc 22.5 - [id number] - [id number] Implanted:Qty: 1 on 01/07/2018 by Andres Ty MD at [facility] Right: Eye BAUSCH & LOMB 08/21/2022 [id number] / [id number] / [id number] Lens Intraoc 22.5 - [id number] - [id number] Implanted:Qty: 1 on 01/16/2018 by Andres Ty MD at OR [facility] Left: Eye BAUSCH & LOMB 06/20/2022 [id number] / [id number] / [id number] documented as of this encounter Visit Diagnoses [...] and were consensually agreed upon. Care Teams Supervisor Partial Denture Department Relationship Specialty Start Date End Date Alok Guzman DO [address] [place] [address] PCP - General Family Medicine 10/09/22 documented as of this encounter
--- OUTSIDE RECORDS SUMMARY | 2024-08-16 15:35 | External Medical Summary | Summary of Care ---
Author Name Unknown Organization [facility] Address [address] [place] [facility] [place] [address] Phone [phone] Care Team Providers Care Junior Net Developer Name Role Phone Alok Guzman DO Primary Care Provider [phone] Reason for Visit * Reason Onset Date Comments case management 07/24/2024 Encounter Details Date Type Department Care Team (Late st Contact Info) Description 07/24/2024 Telephone Family Practice [facility] [place] 200 [facility] [place] [address] Alok Guzman DO 200 [facility] [place] [address] case management Allergies No known active allergiesdocumented [...] 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 states that she has called multiple times with no response. She states that he needs "headgear and plastic piece for nose." She states that what he has is too loose and he is not getting a seal. Patient was just discharged from [facility] with new diagnosis of Afib. Can someone from sleep med please assist with this matter?? Thank you! Domi Montiel RN Case Manager [facility] Internal Medicine/Family Practice [facility] [phone] documented in this encounter Plan of Treatment Upcoming Encounters Date Type Department Care Team (Late st Contact Info) Description 07/30/2024 8:20 AM EST Office Visit Family Practice [facility] [address] [place] [address] Blessing Montelongo MD [address] [place] [address] 08/06/2024 11:30 AM EST Office Visit Otolaryngology [facility] [address] [place] [address] Heath Painting PA-C [address] [place] [address] 10/09/2024 9:20 AM EDT Office Visit Family Practice [facility] [address] [place] [address] Alok Guzman DO 200 [facility] [place] [address] 12/23/2024 8:15 AM EDT Office Visit MOHS Surgery [facility] [address] [place] [address] Mirian Barragan MD 200 [facility] [place] [address] 03/17/2025 10:00 AM EDT Nurse Only Ancillary [facility] [address] [place] [address] [place], Nurse Annual Wellness [facility] 200 [facility] [place] [address] 05/31/2025 8:30 AM EST Office Visit Dermatology [facility] [address] [place] [address] Param Nolasco MD 200 [facility] [place] [address] Scheduled Procedures Name Priority Associated Diagnoses Date/Ti [...] this encounter Medical Devices Implanted Type Area Small Offset Printer Device Identifier Shelf Expiration Date Model / Serial / Lot Lens Intraoc 22.5 - [id number] - [id number] Implanted:Qty: 1 on 01/07/2018 by Andres Ty MD at OR [facility] Right: Eye BAUSCH & LOMB 08/21/2022 [id number] / [id number] / [id number] Lens Intraoc 22.5 - [id number] - [id number] Implanted:Qty: 1 on 01/16/2018 by Andres Ty MD at OR [facility] Left: Eye BAUSCH & LOMB 06/20/2022 [id number] / [id number] / [id number] documented as of this encounter Advance Directives [...] and were consensually agreed upon. Care Teams Junior Net Developer Relationship Specialty Start Date End Date Alok Guzman DO [address] [place] [address] PCP - General Family Medicine 10/09/22 documented as of this encounter
--- OUTSIDE RECORDS SUMMARY | 2024-08-16 15:35 | External Medical Summary | Summary of Care ---
Author Name Unknown Organization [facility] Address [address] [facility] [place] [address] Phone [phone] Care Team Providers Care Supervisor Beam Department Name Role Phone Alok Guzman DO Primary Care Provider [phone] Reason for Visit * Reason Comments Follow Up Encounter Details Date Type Department Care Team (Late st Contact Info) Description 08/06/2024 11:30 AM EST Office Visit Otolaryngology [facility] [address] [place] [address] Heath Painting PA-C [address] [place] [address] Atypical nevus of right ear* Allergies No known active allergiesdocumented as of this encounter (statuses as of 08/06/2024) Medications CPAP every night at bedtime. Active [...] as of this encounter (statuses as of 08/06/2024) Active Problems Problem Noted Date Diagnosed Date Class 2 severe obesity due t o excess calories with serious comorbidity and body mass index (BMI) of 38.0 to 38.9 in adult 07/30/2024 Persistent atrial fibrillation 07/30/2024 BPH with obstruction/lower urinary tract symptom s 07/30/2024 Coronary artery disease invo lving [place] heart without angina pectoris 07/30/2024 Lesion of [...] as of this encounter (statuses as of 08/06/2024) Resolved Problems Problem Noted Date Diagnosed Date [...] as of this encounter (statuses as of 08/06/2024) Immunizations Name Administration Dates Next Due DTWP [...] 07/24/2024 Does the household have a re lar [...] 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 Trammell 07/09/24 He is doing well. Pathology was benign: A. Ear, Right, right ear canal lesion, biopsy: Melanocytic nevus with congenital pattern features No issues after procedure-- no bleeding, drainage, pain, infection. From last visit: Noticed within the last few months right [...] Preauricular sinus Hx of nonmelanoma skin cancer Lesion of external ear canal, right Class 2 severe obesity due to excess calories with serious comorbidity and body mass index (BMI) of38.0 to 38.9 in adult (HCC) Persistent atrial fibrillation (HCC) BPH with obstruction/lower urinary tract symptoms Coronary artery disease involving [place] heart without angina pectoris Past Medical History: Diagnosis Date CPAP (continuous positive airway pressure) dependence 08/12/2015 INFORMATION 06/27/2007 nonmelanoma skin cancer scalp: leiomyosarcoma Obstructive sleep apnea of adult 08/12/2015 Vitreous hemorrhage (HCC) 02/06/2016 PPV/EL for [facility] OD-Dr. Tena Past Surgical History: Procedure Laterality Date COLONOSCOPY, DIAGNOSTIC (RECTUM) 06/13/2020 adenomatous polyp, repeat 5 yrs / COLONOSCOPY FLEXIBLE PROXIMAL DIAGNOSTIC performed by Joi Murphy MD at ENDOSCOPY [facility] COLONOSCOPY, GI REFERRAL OP 12/11/2005 normal repeat 2015, Dr Nolan, [facility] EAR & THROAT EXAM, GEN'L ANESTHESIA Right 07/09/2024 OTOLARYNGOLOGIC EXAMINATION UNDER GENERAL ANESTHESIA performed by Puma Trammell DO at OR [facility] PARTIAL REMOVAL OF EYE FLUID Right 02/06/2016 PPV/EL for [facility] OD-Dr. Tena REMOVE CATARACT, INSERT LENS PROSTH Right 01/07/2018 right EXTRACAPSULAR CATARACT REMOVAL WITH INTRAOCULAR LENS performed by Andres Ty MD at [facility] REMOVE CATARACT, INSERT LENS PROSTH Left 01/16/2018 left EXTRACAPSULAR CATARACT REMOVAL WITH INTRAOCULAR LENS performed by Andres Ty MD at OR [facility] REMOVE EAR CANAL LESION(S) Right 07/09/2024 EXCISION SOFT TISSUE LESION EXTERNAL AUDITORY performed by Puma Trammell DO at [facility] TENDON SHEATH INCISION, FINGER 2018 TENDON SHEATH INCISION, FINGER cut off end of thumb Medications Current Outpatient Medications Medication Sig Dispense Refill CPAP every night at bedtime. Multivitamin Adults 50+ Oral Tablet Take by mouth. Zinc Picolinate Powder Use as directed. Finasteride 5 MG Oral Tablet (Proscar) Take 1 Tablet by mouth in the morning. 90 Tablet 3 Tamsulosin HCl 0.4 MG Oral Capsule (Flomax) Take 1 Capsule by mouth at bedtime. 90 Capsule 3 Apixaban 5 MG Oral Tablet (Eliquis) Take 1 Tablet by mouth in the morning and 1 Tablet before bedtime. Aspirin 81 MG Oral Capsule Take by mouth. Atorvastatin Calcium 40 MG Oral Tablet (Lipitor) Take 1 Tablet by mouth in the morning. Metoprolol Tartrate 50 MG Oral Tablet (Lopressor) Take 1 Tablet by mouth in the morning and 1 Tablet before bedtime. No current facility-administered medications for this [...] and Problem List). PHYSICAL EXAMINATION: Vital Signs: There were no vitals filed for this visit. General: this is a healthy appearing male who appears his stated age. The patient is alert and appropriately verbally conversant without hoarseness. Face: The face was inspected and no cutaneous masses or lesions were visualized. There was no erythema or edema noted. Facial movement was symmetric without weakness. Ears: Examination of the ears revealed that the auricles were normally formed with no lesions. The left external ear canal is within normal limits. The right external auditory canal was within normallimits, no lesions. The tympanic membranes were intact, without perforation or significant retraction pockets. Neck: [...] Lesion of external ear canal, right Plan: Healed well post op. Pathology benign. F/U PRN. Pt verbalized understanding and agrees with plan. Questions/Concerns addressed. Heath Painting PA-C [facility] OUTPATIENT SURGERY [place] [facility] 132 [facility] [address] 08/06/24 documented in this encounter Plan of Treatment Upcoming Encounters Date Type Department Care Team (Late st Contact Info) Description 10/09/2024 9:20 AM EDT Office Visit Family Practice [facility] 200 [facility] [place] [address] Alok Guzman, DO [address] [place] [address] [facility] [place] [address] 11/19/2024 11:00 AM EDT Office Visit [address]iology, [address] [address] Partha Shay, DO [address] [facility] [address] 12/23/2024 8:15 AM EDT Office Visit [facility] Surgery [facility] [address] [facility] [address] Mirian Barragan MD [address] [place] [address] [place] [address] 03/17/2025 10:00 AM EDT Nurse Only Ancillary [facility] 200 [facility] [place] [address] [place], Nurse Annual Wellness [address] [place] [address] 05/31/2025 8:30 AM EST [facility] [address] [place] [address] Param Nolasco MD [address] [place] [address] 07/02/2025 11:00 AM EST [facility] [address] [place] [address] Laura Nunez, [address] [place] [address] Scheduled Procedures Name Priority Associated Diagnoses Date/Ti [...] this encounter Medical Devices Implanted Type Area Pharmaceutical Laboratory Technician Device Identifier Shelf Expiration Date Model / Serial / Lot Lens Intraoc 22.5 - [id number] - [id number] Implanted:Qty: 1 on 01/07/2018 by Andres Ty MD at OR [facility] Right: Eye BAUSCH & LOMB 08/21/2022 [id number] / [id number] / [id number] Lens Intraoc 22.5 - [id number] - [id number] Implanted:Qty: 1 on 01/16/2018 by Andres Ty MD at OR [facility] Left: Eye BAUSCH & LOMB 06/20/2022 [id number] / [id number] / [id number] documented as of this encounter Visit Diagnoses Diagnosis Atypical nevus of right ear- Primary documented in this [...] were consensually agreed upon. Care Teams Supervisor Beam Department Relationship Specialty Start Date End Date Alok Guzman DO [facility] [place] [address] PCP - General Family Medicine 10/09/22 documented as of this encounter
--- OUTSIDE RECORDS SUMMARY | 2024-08-16 15:35 | External Medical Summary | Summary of Care ---
Author Name Unknown Organization [facility] Address [address] [place] [facility] [facility] [place] [address] Phone [phone] Care Team Providers Care Casino Host Name Role Phone Alok Guzman DO Primary Care Provider [phone] Reason for Visit * Reason Onset Date Comments case management 07/24/2024 Encounter Details Date Type Department Care Team (Late st Contact Info) Description 07/24/2024 Telephone Family Practice [facility] [place] 200 [facility] [place] [address] Alok Guzman DO 200 [facility] [place] [address] case management Allergies No known active allergiesdocumented [...] 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 Patient was just discharged from [facility] with new diagnosis of Afib. Can someone from sleep med please assist with this matter?? Thank you! Domi Montiel RN Case Manager [facility] Internal Medicine/Family Practice [facility] [phone] documented in this encounter Plan of Treatment Upcoming Encounters Date Type Department Care Team (Late st Contact Info) Description 07/30/2024 8:20 AM EST Office Visit [facility] Practice [facility] [address] [place] [address] Blessing Montelongo MD [address] [place] [address] 08/06/2024 11:30 AM EST Office Visit Otolaryngology [facility] [address] [place] [address] Heath Painting PA-C [address] [place] [address] 10/09/2024 9:20 AM EDT Office Visit Family Practice [facility] [address] [place] [address] Alok Guzman, 200 [facility] [place] [address] 12/23/2024 8:15 AM EDT Office Visit MOHS Surgery [facility] [address] [facility] [address] [place] [address] Mirian Barragan MD 200 [facility] [place] [address] 03/17/2025 10:00 AM EDT Nurse Only Ancillary [facility] 200 [facility] [place] [address] [place], Nurse Annual Wellness [address] [place] [address] 05/31/2025 8:30 AM EST Office Visit Dermatology [facility] [address] [place], [place] [address] Param Nolasco MD 200 [facility] [place], [place] [address] Scheduled Procedures Name Priority Associated Diagnoses Date/Ti [...] this encounter Medical Devices Implanted Type Area Insulation Blanket Maker Device Identifier Shelf Expiration Date Model / Serial / Lot Lens Intraoc 22.5 - [id number] - [id number] Implanted:Qty: 1 on 01/07/2018 by Andres Ty MD at OR [facility] Right: Eye BAUSCH & LOMB 08/21/2022 [id number] / [id number] / [id number] Lens Intraoc 22.5 - [id number] - [id number] Implanted:Qty: 1 on 01/16/2018 by Andres Ty MD at OR [facility] Left: Eye BAUSCH & LOMB 06/20/2022 [id number] / [id number] / [id number] documented as of this encounter Visit Diagnoses [...] and were consensually agreed upon. Care Teams Casino Host Relationship Specialty Start Date End Date Alok Guzman DO [address] [place] [address] PCP - General Family Medicine 10/09/22 documented as of this encounter
--- OUTSIDE RECORDS SUMMARY | 2024-08-16 15:35 | External Medical Summary | Summary of Care ---
Author Name Unknown Organization [facility] Address [address] [place] [facility] [place] [address] Phone [phone] Care Team Providers Care Substitute Teacher Name Role Phone Alok Guzman DO Primary Care Provider [phone] Reason for Visit * Reason Onset Date Comments case management 07/24/2024 Encounter Details Date Type Department Care Team (Late st Contact Info) Description 07/24/2024 Telephone Family Practice [facility] [place] 200 [facility] [place] [address] Alok Guzman DO [address] 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 * Telephone Encounter - Maureen Royal LPN [...] a seal. Patient was just discharged from [facility] with new diagnosis of Afib. Can someone from sleep med please assist with this matter?? Thank you! Domi Montiel, disease case manager [facility] Internal Medicine/Family Practice [facility] [phone] documented in this encounter Plan of Treatment Upcoming Encounters Date Type Department Care Team (Late st Contact Info) Description 07/30/2024 8:20 AM EST Office Visit [facility] [place] [address] [place] [address] Blessing Montelongo MD [address] [place] [address] 08/06/2024 11:30 AM EST Office Visit Otolaryngology [facility] [address] [facility] [place] [address] Heath Painting PA-C [address] [facility] [place] [address] 10/09/2024 9:20 AM EDT Office Visit [facility] [place] [address] [place] [address] Alok Guzman, 200 [facility] [place] [address] 12/23/2024 8:15 AM EDT Office Visit MOHS Surgery [facility] [place] [address] [facility] [address] [place] [address] Mirian Barragan MD [address] [place] [address] 03/17/2025 10:00 AM EDT Nurse Only Ancillary [facility] [place] [address] [place] [address] Marixa Nurse Annual Wellness [facility] [address] [facility] [place] [address] 05/31/2025 8:30 AM EST Office Visit Dermatology Jessica Calvin [place] [address] [facility] [place] [address] Param Nolasco MD [address] [facility] [place] [address] Scheduled Procedures Name Priority Associated Diagnoses Date/Ti [...] this encounter Medical Devices Implanted Type Area Pricing Actuary Device Identifier Shelf Expiration Date Model / Serial / Lot Lens Intraoc 22.5 - [id number] - [id number] Implanted:Qty: 1 on 01/07/2018 by Andres Ty MD at OR [facility] Right: Eye BAUSCH & LOMB 08/21/2022 [id number] / [id number] / [id number] Lens Intraoc 22.5 - [id number] - [id number] Implanted:Qty: 1 on 01/16/2018 by Andres Ty MD at OR [facility] Left: Eye BAUSCH & LOMB 06/20/2022 [id number] / [id number] / [id number] documented as of this encounter Visit Diagnoses [...] and were consensually agreed upon. Care Teams Substitute Teacher Relationship Specialty Start Date End Date Alok Guzman DO [address] [place] [address], [place] [address] PCP - General Family Medicine 10/09/22 documented as of this encounter
--- OUTSIDE RECORDS SUMMARY | 2024-08-16 15:35 | External Medical Summary | Summary of Care ---
Author Name Unknown Organization [facility] Address [address] [place] [address] Phone [phone] Care Team Providers Care Budget And Policy Analyst Name Role Phone Alok Guzman DO Primary Care Provider [phone] Reason for Referral * Social Care (Within 10 days (routine)) - Authorized Specialty Diagnoses / Procedures Referred By Rory velez Referred To Contact Chemical Test Engineer Diagnoses Atrial fibrillation with rapid ventricular response (HCC) CHERYL on CPAP Blessing Montelongo MD [address] [facility] [place] [id number] Phone: tel: fax: Referral ID Status Reason Start Date Expiration Date Visits Requested Visits Authorized [id number] Authorized Specialty Services Required 07/23/[phone] Question Answer Referral Priority Within 10 days (routine) Where should this appointment be scheduled? [facility] Role Securities Supervisor Securities Supervisor Referral Reason Transition of Care ([place])/High Risk for Readmission Comments Is patient being transitioned from [facility] to Complex Case Management? No Reason for Visit * Reason Onset Date Comments Referral 07/23/2024 Encounter Details Date Type Department Care Team (Late st Contact Info) Description 07/23/2024 Telephone Family Practice [place] [facility]ri Valles [address] [place] [address] Blessing Montelongo MD [address] [facility] [place] [id number] Referral Allergies No known active allergiesdocumented as [...] No 03/13/2024 Does the household have a [facility] source of income? 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 Dr. Montelongo would like this patient to have f/u with new medsand new diagnosis. Will place CM referral Provider to address: Reason for Call: Referral Contact: Telephone Call Contact Type: Referral(s) Placed Provider In-Basket: No Outcome: CM referral placed as patient with P insurance and recently discharged from [facility] Face to face time spent with Patient (minutes): 0 Total Time including non face to face (minutes): 10 documented in this encounter Plan of Treatment Upcoming Encounters Date Type Department Care Team (Late st Contact Info) Description 08/06/2024 11:30 AM EST Office Visit Otolaryngology [address] [place] [address] Heath Painting PA-C [address] [place] [address] 10/09/2024 9:20 AM EDT Office Visit Family Practice [facility] [address] [facility] [place] [phone] Alok Guzman DO [address] [facility] [place] [id number] 12/23/2024 8:15 AM EDT Office Visit MOHS Surgery [facility] [place] [address] [facility] [address] [place] [address] Mirian Barragan MD [address] [facility] [place] [address] 03/17/2025 10:00 AM EDT Nurse Only Ancillary [facility] [place] [address] [facility] [place] [phone] Marixa, Nurse Annual Wellness [facility] [address] [facility] [place] [address] 05/31/2025 8:30 AM EST Office Visit Dermatology [facility] [place] [address] [facility] [place] [address] Param Nolasco MD [address] [facility] [place] [phone] Scheduled Procedures Name Priority Associated Diagnoses Date/Ti me COLONOSCOPY FLEXIBLE PROXIMAL DIAGNOSTIC Recall History of colon polyps Scheduled Referrals Name Type Priority Associated Diagnoses Orde r Schedule POPULATION HEALTH REFERRAL OP Referral Within 10 days (routine) Atrial fibrillation with rapid ventricular response (HCC) CHERYL on CPAP Ordered: 07/23/2024 Health Maintenance Due Date Last Done Comments [...] this encounter Medical Devices Implanted Type Area Coal Screener Device Identifier Shelf Expiration Date Model / Serial / Lot Lens Intraoc 22.5 - [id number] - [id number] Implanted:Qty: 1 on 01/07/2018 by Andres Ty MD at OR [facility] Right: Eye [employer] 08/21/2022 [id number] / [id number] / [id number] Lens Intraoc 22.5 - [id number] - [id number] Implanted:Qty: 1 on 01/16/2018 by Andres Ty MD at OR [facility] Left: Eye [employer] 06/20/2022 [id number] / [id number] / [id number] documented as of this encounter Visit Diagnoses [...] and were consensually agreed upon. Care Teams Budget And Policy Analyst Relationship Specialty Start Date End Date Alok Guzmna DO [address] [place] [address] PCP - General Family Medicine 10/09/22 documented as of this encounter
[2024-08-16 16:24] LABS: Basophils # (auto) 0.03 K/uL (0.00-0.20); Basophils % (auto) 0.3 %; Eosinophils # (auto) 0.05 K/uL (0.00-0.50); Eosinophils % (auto) 0.5 %; Hematocrit (blood only) 47.2 % (42.0-52.0); Hemoglobin 16.3 g/dl (14.0-18.0); Immature Granulocytes # (auto) 0.01 K/uL (0.01-0.20); Immature Granulocytes % (auto) 0.1 %; Lymphocytes # (auto) 1.63 K/uL (1.20-3.40); Lymphocytes % (auto) 17.6 %; Mean Corpuscular Hemoglobin 29.9 pg (25.0-34.0); Mean Corpuscular Hgb Conc 34.5 g/dL (32.0-36.0); Mean Corpuscular Volume 86.6 fL (80.0-100.0); Mean Platelet Volume 10.3 fL (9.4-12.4); Monocytes # (auto) 1.04 K/uL (0.11-0.59); Monocytes % (auto) 11.2 %; Neutrophils # (auto) 6.49 K/uL (1.40-6.50); Neutrophils % (auto) 70.3 %; Platelet Count 149 K/uL (130-400); RDW Coefficient of Variation 12.5 % (11.5-14.5); RDW Standard Deviation 39.5 fL (36.4-46.3); Red Blood Count 5.45 M/uL (4.70-6.10); White Blood Count 9.25 K/ul (4.8-10.8)
[2024-08-16] MEDS: ASPIRIN CHEW 324 MG PO STA (16:26)
[2024-08-16] MEDS: dilTIAZem HCl 5 MG/ML 5 ML VIAL IV STA (16:27)
--- NOTE | 2024-08-16 16:28 | XRay Report ---
INDICATION: Chest pain. TECHNIQUE: Frontal radiograph of the chest. COMPARISON: Radiograph from 07/21/2024. FINDINGS: Cardiomegaly. Pulmonary vasculature appear within normal limits. No infiltrate, pleural effusion or pneumothorax. No acute osseous abnormality evident. IMPRESSION: No acute cardiopulmonary process. Electronically signed by Thee Alvarez 08-16-2024 4:28 PM
--- NOTE | 2024-08-16 16:39 | Emergency Department Note ---
Impression & Plan Chest pain, Atrial fibrillation with rapid ventricular response ED Provider Note NAME: AIME HERNADEZ AGE: 74 SEX: M : 1950 ARRIVES VIA: Walk-In INFORMANT: Patient, ED PROVIDER(S): Kelvin Brink DO CHIEF COMPLAINT: Chest pain HPI: The patient is a 74-year-old male who presented to the emergency department for an evaluation of chest pain. The patient describes left-sided chest pain which began over the last 24 hours. The patient states it is not exertional. He describes it as a pressure. He was seen at the beginning of the year for similar chest pain and had a cardiac catheterization. He was found to have a 50% circumflex lesion. The patient denies having any abdominal pain. He does complain of lower extremity swelling and cough. He does have worsening shortness of breath with lying flat. ROS: See above HPI for pertinent positives & negatives. A total of 10 systems reviewed and were otherwise negative. PAST MEDICAL HISTORY: See Below PAST SURGICAL HISTORY: See Below FAMILY HISTORY: See Below SOCIAL HISTORY: See Below HOME MEDICATIONS: See Below ALLERGIES: See Below VITALS: See Below PHYSICAL EXAMINATION: GENERAL: Patient is awake alert in no acute distress patient is resting comfortably and showing no signs of anxiety EYES: The conjunctivae are clear. The pupils are round and reactive. EARS, NOSE, MOUTH AND THROAT: The nose is without any evidence of any deformity. Mucous membranes are moist. Tongue is midline. NECK: The neck is nontender and supple. RESPIRATORY: Diminished breath sounds are noted at both bases. There is faint rales at both bases. CARDIOVASCULAR: Tachycardic and irregular heart sounds were noted to auscultation. There is no definite murmur. GASTROINTESTINAL: The abdomen is soft. Abdomen is nontender. MUSCULOSKELETAL/EXTREMITIES: There is no evidence of gross deformity full range of motion is noted in the hips and shoulders. SKIN: There is no obvious evidence of any rash. Skin was warm and dry. Trace pedal edema was noted bilaterally. NEUROLOGIC: Patient is awake alert and oriented x3 MEDICAL DECISION MAKING: The patient is a 74-year-old male who presented to the emergency department for an evaluation of chest pain. The patient had a cardiac catheterization earlier this month. It did show a 50% lesion in the circumflex but no other specific significant lesions. The patient had serial troponin markers in the emergency department that were normal. The patient was found to be in rapid atrial fibrillation. His rate was controlled. He was feeling somewhat improved. Given the patient's age and comorbidities I [facility] have agreed to evaluate the patient in the emergency department. He may require serial troponin measurements to determine if any further workup is necessary. Triage Nursing notes reviewed. Prior medical records reviewed Vital Signs: reviewed and remarkable for no significant abnormalities Differential diagnosis: Cardiac ischemia, aortic dissection, pulmonary embolism, pneumothorax, pneumonia, pericarditis, myocarditis, esophageal rupture, GERD, cholecystitis, pancreatitis, musculoskeletal, as well as other pathologies. ER treatment provided: See below Diagnostics interpreted by me: ECG: EKG was obtained in the emergency department. My interpretation is atrial fibrillation with RVR at 120 bpm. No PVCs are noted. Nonspecific ST and T wave abnormalities were noted. This was compared to a tracing from July 23, 2024. No specific changes were noted. Cardiac Monitoring: An order was placed for continuous cardiac monitoring. The monitor shows a rate of 98 bpm with atrial fibrillation. Laboratory studies: As stated above and show below. Imaging studies: See below. Radiographic imaging was reviewed by myself Consultation(s): I discussed this case with Dr. Melissa who [facility]. Past Med/Surg History Problem List (Updated 08/16/24 @ 22:31 by Kelvin Brink DO) Atrial fibrillation with rapid ventricular response (Acute) Chest pain (Acute) Unstable angina pectoris Abnormal EKG New onset atrial fibrillation CHERYL on CPAP Medical History History of vitreous hemorrhage History of nonmelanoma skin cancer BPH w urinary obs/LUTS Surgical History History of surgical amputation of finger History of cataract surgery Family History Father Cancer Social History Smoking Status: Never smoker Second Hand Exposure: No; Do You Dip or Chew Tobacco: No; Tobacco Cessation Education Requested by Patient: No Hx Alcohol Use: No Hx Substance Use: No Preferred Language: Sierra Leonean Communication Ability: Effective Commissioner Conservation Of Resources Required: No Beliefs That Will Affect Care: None Current Living Situation: Spouse Current Living Situation Comment: lives at home with spouse Other Information That Helps Us Care for You: No Feels Safe at Home: Yes Safety Concerns: Feels Safe At This Time Assistive Devices: None Assistive Devices Comment: none brought with patient Allergies Allergies Allergy/AdvReac Type Severity Reaction Status Date / Time No Known Allergies Allergy Mild Verified 02/06/16 06:31 Home Meds Home Medications Medication Instructions Recorded Confirmed multivitamin (Daily Multi-Vitamin 1 tab PO DAILY 07/24/23 08/16/24 tablet) tamsulosin 0.4 mg capsule 0.4 mg PO HS 07/24/23 08/16/24 Previous Rx's Medication Instructions Recorded finasteride 5 mg tablet 5 mg PO DAILY #30 tabs 08/27/23 apixaban 5 mg tablet (Eliquis) 5 mg PO BID #60 tabs 07/22/24 metoprolol tartrate 50 mg tablet 50 mg PO BID #60 tabs 07/22/24 aspirin 81 mg tablet,delayed 81 mg PO DAILY #30 tabs 07/23/24 release atorvastatin 40 mg tablet (Lipitor) 40 mg PO HS #30 tabs 07/23/24 Results & Data (ED) Vital Signs Vital Signs - 24 hr 08/16/24 15:34 08/16/24 15:59 08/16/24 15:59 Temperature 37.5 C Temperature Source Temporal Artery Scan Pulse Rate 105 H 104 H Pulse Rate [Right Finger] 104 H Pulse Rate from SpO2 Sensor Respiratory Rate 20 20 Respiratory Effort / Characteristics Non-Labored Respiratory Depth Normal Blood Pressure 137/92 Blood Pressure [Right Arm] 145/90 H Blood Pressure Mean 107 Blood Pressure Mean [Right Arm] 108 Pulse Oximetry 94 95 95 Oxygen Delivery Method Room Air Room Air Room Air Sepsis Recent Fever Within 48 Hours No Sepsis New/Unexplained Change in Mental Status N/A Sepsis Action Taken by Nursing No Action Required 08/16/24 16:24 08/16/24 16:27 08/16/24 16:30 Temperature Temperature Source Pulse Rate 106 H 104 H 94 H Pulse Rate [Right Finger] Pulse Rate from SpO2 Sensor 111 H Respiratory Rate 28 H 16 Respiratory Effort / Characteristics Respiratory Depth Blood Pressure 187/125 H 143/102 H Blood Pressure [Right Arm] Blood Pressure Mean 145 110 Blood Pressure Mean [Right Arm] Pulse Oximetry 95 94 Oxygen Delivery Method Sepsis Recent Fever Within 48 Hours Sepsis New/Unexplained Change in Mental Status Sepsis Action Taken by Nursing 08/16/24 17:00 08/16/24 17:30 08/16/24 18:00 Temperature Temperature Source Pulse Rate 100 H 106 H 109 H Pulse Rate [Right Finger] Pulse Rate from SpO2 Sensor Respiratory Rate 20 22 21 Respiratory Effort / Characteristics Respiratory Depth Blood Pressure 135/99 145/104 H 146/102 H Blood Pressure [Right Arm] Blood Pressure Mean 107 117 108 Blood Pressure Mean [Right Arm] Pulse Oximetry 94 93 93 Oxygen Delivery Method Sepsis Recent Fever Within 48 Hours Sepsis New/Unexplained Change in Mental Status Sepsis Action Taken by Nursing 08/16/24 18:30 08/16/24 20:09 08/16/24 20:30 Temperature Temperature Source Pulse Rate 111 H 106 H Pulse Rate [Right Finger] 118 H Pulse Rate from SpO2 Sensor Respiratory Rate 20 18 Respiratory Effort / Characteristics Respiratory Depth Blood Pressure 113/84 Blood Pressure [Right Arm] 122/96 Blood Pressure Mean 104 Blood Pressure Mean [Right Arm] 104 Pulse Oximetry 95 95 Oxygen Delivery Method Sepsis Recent Fever Within 48 Hours Sepsis New/Unexplained Change in Mental Status Sepsis Action Taken by Longterm Medications Current Medication List: was personally reviewed by me Laboratory Data Attestation: I reviewed the patient's lab results. 08/16/24 16:00 08/16/24 16:00 Lab Results 08/16/24 08/16/24 08/16/24 Range/Units 16:00 16:03 18:05 WBC 9.25 (4.8-10.8) K/ul RBC 5.45 (4.70-6.10) M/uL Hgb 16.3 (14.0-18.0) g/dl Hct 47.2 (42.0-52.0) % MCV 86.6 (80.0-100.0) fL MCH 29.9 (25.0-34.0) pg MCHC 34.5 (32.0-36.0) g/dL RDW Std Deviation 39.5 (36.4-46.3) fL RDW Coeff of Dwayne 12.5 (11.5-14.5) % Plt Count 149 (130-400) K/uL MPV 10.3 (9.4-12.4) fL Immature Gran % (Auto) 0.1 % Neut % (Auto) 70.3 % Lymph % (Auto) 17.6 % [place] % (Auto) 11.2 % Eos % (Auto) 0.5 % Baso % (Auto) 0.3 % Neut # (Auto) 6.49 (1.40-6.50) K/uL Lymph # (Auto) 1.63 (1.20-3.40) K/uL [place] # (Auto) 1.04 H (0.11-0.59) K/uL Eos # (Auto) 0.05 (0.00-0.50) K/uL Baso # (Auto) 0.03 (0.00-0.20) K/uL Immature Gran # (Auto) 0.01 (0.01-0.20) K/uL ESR 9 (0-20) mm/hr PT 11.5 (9.0-12.0) Seconds INR 1.1 (0.9-1.1) APTT 26 (21-31) Seconds PTT Ratio 1.0 Sodium 140 (136-145) mmol/L Potassium 4.2 (3.5-5.1) mmol/L Chloride 105 (98-107) mmol/L Carbon Dioxide 28 (21-32) mmol/L Anion Gap 7 (3-11) BUN 25 H (6-23) mg/dl Creatinine 1.44 H (0.6-1.4) mg/dl Est Cr Clr Drug Dosing 55.4 ml/min eGFR 51.63 BUN/Creatinine Ratio 17.4 (10-20) Glucose 104 H (70-99(Fasting)) mg/dl Calcium 9.5 (8.6-10.3) mg/dl Magnesium 1.8 (1.7-2.4) mg/dl Total Bilirubin 0.8 (0.2-1.0) mg/dl AST 21 (13-39) U/L ALT 28 (7-52) U/L Alkaline Phosphatase 75 (34-104) U/L Troponin I High Sens 8.6 10.2 (0-20) pg/ml Total Protein 7.7 (6.0-8.3) gm/dl Albumin 4.7 (3.4-5.0) gm/dl Globulin 3.0 (2.5-4.0) gm/dl Albumin/Globulin Ratio 1.6 (0.9-2) TSH 0.905 (0.300-4.500) uIu/ml SARS-CoV-2 (PCR) NEGATIVE (Negative) Influenza Type A (PCR) Negative (Neg) Influenza Type B (PCR) Negative (Neg) RSV (RT-PCR) Negative (Neg) Administered Medications Discontinued Medications Aspirin (Aspirin Chew 324 Mg) 324 mg PO NOW STA Stop: 08/16/24 16:22 Last Admin: 08/16/24 16:26 Dose: 324 mg Documented By: BASIA Diltiazem HCl (Diltiazem Hcl 5 Mg/Ml 5 Ml Vial) 10 mg IV NOW STA Stop: 08/16/24 16:22 Last Admin: 08/16/24 16:27 Dose: 10 mg Documented By: BASIA Co-signed By: QUYEN Albumin Human (Albumin 25%) 25 gm in 100 mls @ 50 mls/hr IV ONE ONE Stop: 08/16/24 21:44 Last Admin: 08/16/24 20:21 Dose: 50 mls/hr Documented By: OPAL Metoprolol Tartrate (Metoprolol Tartrate 50 Mg Tab) 50 mg PO NOW STA Stop: 08/16/24 19:45 Last Admin: 08/16/24 20:20 Dose: 50 mg Documented By: OPAL Nitroglycerin (Nitroglycerin Sl 0.4 Mg/Tab Tab) 0.4 mg SL NOW STA Stop: 08/16/24 20:45 Last Admin: 08/16/24 21:11 Dose: 0.4 mg Documented By: OPAL Imaging Data Attestation: I personally reviewed and interpreted this imaging study as follows: My Impression: 1 view chest x-ray was obtained in the emergency department. My interpretation is no free air or definite infiltrate, final report below Radiologist's Impression: Chest X-Ray 08/16/24 15:42 INDICATION: Chest pain. TECHNIQUE: Frontal radiograph of the chest. COMPARISON: Radiograph from 07/21/2024. FINDINGS: Cardiomegaly. Pulmonary vasculature appear within normal limits. No infiltrate, pleural effusion or pneumothorax. No acute osseous abnormality evident. IMPRESSION: No acute cardiopulmonary process. Electronically signed by Thee Alvarez 08-16-2024 4:28 PM Discharge Plan Visit Data Chief Complaint: Chest Pain Stated Complaint: CHEST PAIN, BOTH FEET ARE PURPLE ED Provider: Kelvin Brink Discharge Problem: Chest pain, Atrial fibrillation with rapid ventricular response Patient Disposition: Admitted As Inpatient Discharge Instructions Interventions: ED Discharge Assessment Last Done: 08/16/24 21:36 Discharge Problem: Chest pain Qualifiers: Chest pain type: unspecified Qualified Code(s): R07.9 - Chest pain, unspecified
[2024-08-16 16:40] LABS: Albumin Globulin Ratio 1.6 (0.9-2); Albumin Level 4.7 gm/dl (3.4-5.0); BUN Creatinine Ratio 17.4 (10-20); Bilirubin,Total 0.8 mg/dl (0.2-1.0); Calcium 9.5 mg/dl (8.6-10.3); Creatinine Clr Calc Pharmacy 55.4 ml/min; Potassium 4.2 mmol/L (3.5-5.1); Total Protein 7.7 gm/dl (6.0-8.3)
[2024-08-16 16:45] LABS: Troponin I High Sensitivity 8.6 pg/ml (0-20)
[2024-08-16 16:51] LABS: INR 1.1 (0.9-1.1); Partial Thromboplastin Time 26 Seconds (21-31); Prothrombin Time 11.5 Seconds (9.0-12.0)
[2024-08-16 16:52] LABS: Influenza A virus by PCR Negative (Neg); Influenza B virus by PCR Negative (Neg); RSV by PCR Negative (Neg); SARS CoV2 RNA(COVID-19) Ceph NEGATIVE (Negative)
[2024-08-16 20:00] LABS: Magnesium 1.8 mg/dl (1.7-2.4)
[2024-08-16 20:16] LABS: Thyroid Stimulating Hormone 0.905 uIu/ml (0.300-4.500)
[2024-08-16] MEDS: METOPROLOL TARTRATE 50 MG TAB PO STA (20:20)
[2024-08-16] MEDS: ALBUMIN 25% 25 GM/100 ML VIAL IV ONE (20:21)
[2024-08-16] MEDS ORDERED: traMADol HCL 50 MG TABLET PO PRN (20:47)
[2024-08-16] MEDS ORDERED: HYDROmorphone INJ 0.5 MG/0.5 ML SYR IV PRN (20:47)
[2024-08-16] MEDS ORDERED: PROMETHAZINE 6.25 MG/50.25 ML BAG IV PRN (20:48)
[2024-08-16] MEDS: NITROGLYCERIN SL 0.4 MG/TAB TAB SL STA (21:11)
[2024-08-16] MEDS ORDERED: NITROGLYCERIN SL 0.4 MG/TAB TAB SL PRN (21:58)
[2024-08-16] MEDS ORDERED: ACETAMINOPHEN 325 MG TAB PO PRN (22:36)
--- NOTE | 2024-08-16 22:48 | Ultrasound Report ---
Exam(s): US ASHLEIGH EXAM: US Duplex Bilateral Lower Extremities Arteries, Limited CLINICAL HISTORY: Reason for exam: LE discoloration/pain. TECHNIQUE: Real-time duplex limited ultrasound scan of the bilateral lower extremity arteries for ASHLEIGH evaluation. B-mode two-dimensional vascular structure, Doppler spectral analysis and color flow Doppler imaging. COMPARISON: No relevant prior studies available. FINDINGS/IMPRESSION: Right lower extremity ankle brachial index: 1.15 (DP) 1.18 (PT) Left lower extremity ankle brachial index: 1.31 (DP) 1.30 (PT) Electronically signed by: Maria C Villeda M.D. 08/16/24 22:46 PM
[2024-08-16 23:23] LABS: Appearance Urine Clear (Clear); Bilirubin Urine Negative (Negative); Blood Urine Negative (Negative); Color Urine Yellow; Glucose Urine UA Negative (Negative); Ketones Urine Negative (Negative); Leukocyte Esterase Urine Negative (Negative); Nitrite Urine Negative (Negative); Protein Urine Negative (Negative); Specific Gravity Urine 1.023 (1.000-1.030); Urobilinogen Urine Negative (Negative)
[2024-08-16] MEDS: ATORVASTATIN 40 MG TAB PO SCH (23:39)
[2024-08-16] MEDS: MAGNESIUM SULFATE / D5W 1 GM/100 ML BAG IV ONE (23:39)
[2024-08-16] MEDS: ACETAMINOPHEN 325 MG TAB PO STA (23:39)
[2024-08-16] MEDS: TAMSULOSIN HCL 0.4 MG CAP PO SCH (23:40)
[2024-08-16] MEDS: guaiFENesin 600 MG TABCR PO STA (23:59)
--- NOTE | 2024-08-17 01:45 | History & Physical Report ---
Date of Service August 16, 2024 (late entry) Assessment & Plan (1) Chest pain: Plan: Relieved by nitroglycerin Rule out ACS, history nonocclusive CAD Musculoskeletal component given reproducibility Viral RTI Uncontrolled hypertension, rapid A-fib secondary to illness valvular heart disease (mild TR, trace MR) ARF, secondary to illness CHERYL on CPAP prediabetes, hemoglobin A1c of 5.9 this month OBS PCU Aspirin, beta-salo, statin Rx Titrate home beta-salo Follow troponin Cardiology consult re: chest pain Hold Eliquis, n.p.o. until patient seen by specialist in anticipation of additional workup Supportive management for viral illness Baseline UA, monitor creatinine response to IVF DVT prophylaxis. SCDs while Eliquis on hold Full code Patient requesting updates providers. Miss Keyona Bear, contact # [phone]. Text document was generated using [employer] voice recognition software. It may contain grammatical or spelling errors. Kindly contact undersigned for clarification of any documentation item in question. Admission and Anticipated Discharge Date Admission Date: August 16, 2024 History of Present Illness Chief Complaint: Constant chest pain, purplish feet Primary Care Provider: Alok Guzman, History obtained from patient, family, and records. Limited history from patient secondary to language barrier. Medical history significant for nonobstructive CAD, valvular heart disease (mild TR, trace MR), A-fib on Eliquis, hypertension, CHERYL on CPAP, prediabetes, skin cancer as per records, BPH. Recent confinement last month for new onset A-fib. Moderate single-vessel CAD 50% on diagnostic cardiac catheterization due to chest pain complaints. Medical management recommended. 3 days ago, patient experienced constant left-sided chest pain described as pressure. Somewhat pleuritic. No exertion. Compliant with home medications. Symptoms later followed by dry cough symptoms. Some leg swelling with purplish feet discoloration as per family noted this morning. Denies headache complaints. Not sure about sick contacts. Uncontrolled BP and rapid A-fib upon arrival at the ER. SBP 180s, heart rate 110s. IV Cardizem administered at the ER. Chest pain relieved by nitroglycerin at the ER. 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, born in [facility] Allergies Allergy/AdvReac Type Severity Reaction Status Date / Time No Known Allergies Allergy Mild Verified 02/06/16 06:31 Home Medications Medication Instructions Recorded Confirmed Type multivitamin (Daily Multi-Vitamin 1 tab PO DAILY 07/24/23 08/16/24 History tablet) tamsulosin 0.4 mg capsule 0.4 mg PO HS 07/24/23 08/16/24 History finasteride 5 mg tablet 5 mg PO DAILY #30 tabs 08/27/23 08/16/24 Rx apixaban 5 mg tablet (Eliquis) 5 mg PO BID #60 tabs 07/22/24 08/16/24 Rx metoprolol tartrate 50 mg tablet 50 mg PO BID #60 tabs 07/22/24 08/16/24 Rx aspirin 81 mg tablet,delayed 81 mg PO DAILY #30 tabs 07/23/24 08/16/24 Rx release atorvastatin 40 mg tablet (Lipitor) 40 mg PO HS #30 tabs 07/23/24 08/16/24 Rx Past Med/Surg History Problem List (Updated 08/16/24 @ 22:31 by Kelvin Brink DO) Atrial fibrillation with rapid ventricular response (Acute) Chest pain (Acute) Unstable angina pectoris Abnormal EKG New onset atrial fibrillation CHERYL on CPAP Medical History History of vitreous hemorrhage History of nonmelanoma skin cancer BPH w urinary obs/LUTS Surgical History History of surgical amputation of finger History of cataract surgery Family History Father Cancer Social History Smoking Status: Never smoker Second Hand Exposure: No; Do You Dip or Chew Tobacco: No; Tobacco Cessation Education Requested by Patient: No Hx Alcohol Use: No Hx Substance Use: No Preferred Language: Ugandan Communication Ability: Effective Toter Required: No Beliefs That Will Affect Care: None Current Living Situation: Spouse Current Living Situation Comment: lives at home with spouse Other Information That Helps Us Care for You: No Feels Safe at Home: Yes Safety Concerns: Feels Safe At This Time Assistive Devices: None Assistive Devices Comment: none brought with patient Review of Systems Review of Systems: Could not be reliably obtained secondary to language barrier Physical Exam Physical Exam: GENERAL: Comfortable, pleasant, obese, no respiratory distress SKIN: Normal color, warm HEENT: [place] palpebral conjunctivae, no ptosis, dry buccal mucosa NECK : Supple, short neck, no tenderness CHEST : Decreased breath sounds, minimal left chest wall tenderness tenderness HEART : Irregular, no obvious murmurs ABDOMEN: Some distention, nontender EXTREMITIES : Minimal LE swelling without tenderness, no other conspicuous deformities noted NEUROLOGIC : Coherent, no facial asymmetry, no other gross focality Results & Data Results & Data Vital Signs (Past 12 Hours) Vital Signs Temp Pulse Pulse Resp BP BP Pulse Ox 08/17/24 00:00 102 H 08/16/24 22:20 08/16/24 22:16 37.9 C H 98 H 20 125/89 93 08/16/24 21:36 109 H 18 128/90 98 08/16/24 20:30 118 H 18 122/96 95 08/16/24 20:09 106 H 08/16/24 18:30 111 H 20 113/84 95 08/16/24 18:00 109 H 21 146/102 H 93 08/16/24 17:30 106 H 22 145/104 H 93 08/16/24 17:00 100 H 20 135/99 94 08/16/24 16:30 94 H 16 143/102 H 94 08/16/24 16:27 104 H 08/16/24 16:24 106 H 28 H 187/125 H 95 08/16/24 15:59 104 H 95 08/16/24 15:59 104 H 20 145/90 H 95 08/16/24 15:34 37.5 C 105 H 20 137/92 94 O2 Del Method 08/17/24 00:00 08/16/24 22:20 Room Air 08/16/24 22:16 Room Air 08/16/24 21:36 08/16/24 20:30 08/16/24 20:09 08/16/24 18:30 08/16/24 18:00 08/16/24 17:30 08/16/24 17:00 08/16/24 16:30 08/16/24 16:27 08/16/24 16:24 08/16/24 15:59 Room Air 08/16/24 15:59 Room Air 08/16/24 15:34 Room Air Laboratory Results Laboratory Results WBC 9.25 K/ul (4.8-10.8) 08/16/24 16:00 RBC 5.45 M/uL (4.70-6.10) 08/16/24 16:00 Hgb 16.3 g/dl (14.0-18.0) 08/16/24 16:00 Hct 47.2 % (42.0-52.0) 08/16/24 16:00 MCV 86.6 fL (80.0-100.0) 08/16/24 16:00 MCH 29.9 pg (25.0-34.0) 08/16/24 16:00 MCHC 34.5 g/dL (32.0-36.0) 08/16/24 16:00 RDW Std Deviation 39.5 fL (36.4-46.3) 08/16/24 16:00 RDW Coeff of Dwayne 12.5 % (11.5-14.5) 08/16/24 16:00 Plt Count 149 K/uL (130-400) 08/16/24 16:00 MPV 10.3 fL (9.4-12.4) 08/16/24 16:00 Immature Gran % (Auto) 0.1 % 08/16/24 16:00 Neut % (Auto) 70.3 % 08/16/24 16:00 Lymph % (Auto) 17.6 % 08/16/24 16:00 [place] % (Auto) 11.2 % 08/16/24 16:00 Eos % (Auto) 0.5 % 08/16/24 16:00 Baso % (Auto) 0.3 % 08/16/24 16:00 Neut # (Auto) 6.49 K/uL (1.40-6.50) 08/16/24 16:00 Lymph # (Auto) 1.63 K/uL (1.20-3.40) 08/16/24 16:00 [place] # (Auto) 1.04 K/uL (0.11-0.59) H 08/16/24 16:00 Eos # (Auto) 0.05 K/uL (0.00-0.50) 08/16/24 16:00 Baso # (Auto) 0.03 K/uL (0.00-0.20) 08/16/24 16:00 Immature Gran # (Auto) 0.01 K/uL (0.01-0.20) 08/16/24 16:00 ESR 9 mm/hr (0-20) 08/16/24 16:00 PT 11.5 Seconds (9.0-12.0) 08/16/24 16:00 INR 1.1 (0.9-1.1) 08/16/24 16:00 APTT 26 Seconds (21-31) 08/16/24 16:00 PTT Ratio 1.0 08/16/24 16:00 Sodium 140 mmol/L (136-145) 08/16/24 16:00 Potassium 4.2 mmol/L (3.5-5.1) 08/16/24 16:00 Chloride 105 mmol/L (98-107) 08/16/24 16:00 Carbon Dioxide 28 mmol/L (21-32) 08/16/24 16:00 Anion Gap 7 (3-11) 08/16/24 16:00 BUN 25 mg/dl (6-23) H 08/16/24 16:00 Creatinine 1.44 mg/dl (0.6-1.4) H 08/16/24 16:00 Est Cr Clr Drug Dosing 55.4 ml/min 08/16/24 16:00 eGFR 51.63 08/16/24 16:00 BUN/Creatinine Ratio 17.4 (10-20) 08/16/24 16:00 Glucose 104 mg/dl (70-99(Fasting)) H 08/16/24 16:00 Calcium 9.5 mg/dl (8.6-10.3) 08/16/24 16:00 Magnesium 1.8 mg/dl (1.7-2.4) 08/16/24 16:00 Total Bilirubin 0.8 mg/dl (0.2-1.0) 08/16/24 16:00 AST 21 U/L (13-39) 08/16/24 16:00 ALT 28 U/L (7-52) 08/16/24 16:00 Alkaline Phosphatase 75 U/L (34-104) 08/16/24 16:00 Troponin I High Sens 12.6 pg/ml (0-20) 08/16/24 22:33 Total Protein 7.7 gm/dl (6.0-8.3) 08/16/24 16:00 Albumin 4.7 gm/dl (3.4-5.0) 08/16/24 16:00 Globulin 3.0 gm/dl (2.5-4.0) 08/16/24 16:00 Albumin/Globulin Ratio 1.6 (0.9-2) 08/16/24 16:00 TSH 0.905 uIu/ml (0.300-4.500) 08/16/24 16:00 Urine Color Yellow 08/16/24 23:07 Urine Appearance Clear (Clear) 08/16/24 23:07 Urine pH 7.0 (4.5-7.5) 08/16/24 23:07 Ur Specific [place] 1.023 (1.000-1.030) 08/16/24 23:07 Urine Protein Negative (Negative) 08/16/24 23:07 Urine Glucose (UA) Negative (Negative) 08/16/24 23:07 Urine Ketones Negative (Negative) 08/16/24 23:07 Urine Blood Negative (Negative) 08/16/24 23:07 Urine Nitrite Negative (Negative) 08/16/24 23:07 Urine Bilirubin Negative (Negative) 08/16/24 23:07 Urine Urobilinogen Negative (Negative) 08/16/24 23:07 Ur Leukocyte Esterase Negative (Negative) 08/16/24 23:07 SARS-CoV-2 (PCR) NEGATIVE (Negative) 08/16/24 16:03 Influenza Type A (PCR) Negative (Neg) 08/16/24 16:03 Influenza Type B (PCR) Negative (Neg) 08/16/24 16:03 RSV (RT-PCR) Negative (Neg) 08/16/24 16:03 Impressions Chest X-Ray 08/16/24 15:42 INDICATION: Chest pain. TECHNIQUE: Frontal radiograph of the chest. COMPARISON: Radiograph from 07/21/2024. FINDINGS: Cardiomegaly. Pulmonary vasculature appear within normal limits. No infiltrate, pleural effusion or pneumothorax. No acute osseous abnormality evident. IMPRESSION: No acute cardiopulmonary process. Electronically signed by Thee Alvarez 08-16-2024 4:28 PM A[facility] Right lower extremity ankle brachial index: 1.15 (DP) 1.18 (PT) Left lower extremity ankle brachial index: 1.31 (DP) 1.30 (PT) Diagnostic Findings EKG as per my interpretation :Rate 130, A-fib, normal axis, T wave abnormalities inferior leads Code Status & VTE Plan VTE Prophylaxis Plan VTE Prophylaxis will be ordered: Yes (1) Chest pain Chest pain type: unspecified Qualified Code(s): R07.9 - Chest pain, unspecified
[2024-08-17 06:47] LABS: BUN Creatinine Ratio 17.2 (10-20); Calcium 8.9 mg/dl (8.6-10.3); Creatinine Clr Calc Pharmacy 64.6 ml/min; Potassium 4.1 mmol/L (3.5-5.1)
[2024-08-17 08:51] LABS: Basophils # (auto) 0.02 K/uL (0.00-0.20); Basophils % (auto) 0.3 %; Eosinophils # (auto) 0.04 K/uL (0.00-0.50); Eosinophils % (auto) 0.5 %; Hematocrit (blood only) 43.2 % (42.0-52.0); Hemoglobin 14.7 g/dl (14.0-18.0); Immature Granulocytes # (auto) 0.02 K/uL (0.01-0.20); Immature Granulocytes % (auto) 0.3 %; Lymphocytes # (auto) 1.89 K/uL (1.20-3.40); Lymphocytes % (auto) 25.7 %; Mean Corpuscular Hemoglobin 29.4 pg (25.0-34.0); Mean Corpuscular Volume 86.4 fL (80.0-100.0); Mean Platelet Volume 10.5 fL (9.4-12.4); Monocytes # (auto) 1.27 K/uL (0.11-0.59); Monocytes % (auto) 17.3 %; Neutrophils # (auto) 4.12 K/uL (1.40-6.50); Neutrophils % (auto) 55.9 %; Platelet Count 121 K/uL (130-400); RDW Coefficient of Variation 12.8 % (11.5-14.5); RDW Standard Deviation 39.8 fL (36.4-46.3); White Blood Count 7.36 K/ul (4.8-10.8)
[2024-08-17] MEDS: ASPIRIN 81 MG ECTAB PO SCH (08:51)
[2024-08-17] MEDS: FINASTERIDE 5 MG TAB PO SCH (08:51)
[2024-08-17] MEDS: METOPROLOL TARTRATE 25 MG TAB PO SCH (08:52)
[2024-08-17] MEDS: MULTIVITAMIN TAB PO SCH (08:52)
[2024-08-17] MEDS ORDERED: METOPROLOL TARTRATE 50 MG TAB PO SCH (09:00)
[2024-08-17 10:09] LABS: Magnesium 2.2 mg/dl (1.7-2.4)
[2024-08-17] MEDS: guaiFENesin 600 MG TABCR PO SCH (10:21)
[2024-08-17] MEDS: APIXABAN 5 MG TABLET PO SCH (10:21)
--- NOTE | 2024-08-17 11:19 | Electrocardiogram Report ---
Test Reason : Blood Pressure : */* mmHG Vent. Rate : 128 BPM Atrial Rate : * BPM P-R Int : * ms QRS Dur : 90 ms QT Int : 310 ms P-R-T Axes : * 70 -42 degrees QTcB Int : 452 ms Atrial fibrillation with rapid ventricular response Nonspecific T wave abnormality Abnormal ECG When compared with ECG of 23-Jul-2024 09:41, No significant change was found Confirmed by Kelvin Glass ([id number]) on 08/17/2024 11:19:08 AM Referred By: Confirmed By: Kelvin Glass
--- NOTE | 2024-08-17 12:17 | Cardiology Consultation ---
Date of Consultation August 17, 2024 Assessment & Plan (1) Atrial fibrillation with rapid ventricular response: (2) Chest pain: High sensitive troponin levels have been negative x 4. Suspect symptoms are due to atrial fibrillation with rapid ventricular spots. Patient states he has been adherent to his medications including the Eliquis since discharge 25 days ago on 07/23/2024. Options discussed with patient. Recommend attempt to restore sinus rhythm. Since he has been on Eliquis for less than a month, would recommend proceeding with transesophageal echocardiogram for further risk stratification from before cardioversion. Risks and benefits described to patient in detail with the assistance of the Croatian language speaking interpretation service video call with spouse in the room serving as witness. Patient elects to proceed. Tentatively planning to perform procedure as a afternoon add-on. Will keep patient n.p.o. with exception of medications for now pending scheduling. If due to scheduling issues, procedure cannot be performed today, will plan on advancing his diet and became n.p.o. after midnight for procedure tomorrow. History of Present Illness Attending Physician: Campos Hanson MD History of Present Illness Mr Bear is a 74 year old male seen in cardiology consultation per the request of Harper Aldridge PA-C for the evaluation of chest pressure , atrial fibrillation, and swollen feet. The patient's primary language is Croatian. He was interviewed and examined with the assistance of the online interpretation service via video call. The patient been seen in cardiology consultation by the undersigned just over 3 weeks ago on 07/22/2024 when he presented with complaint of chest discomfort and was also found to be in a new onset atrial fibrillation with mildly elevated ventricular rate. He was noted to have an abnormal EKG with T wave inversions in the anterolateral precordial leads suggestive of ischemia. Echocardiogram at that time revealed normal biventricular systolic function. Serial troponin levels were within normal limits at the time of that hospital stay. Due to the character of his symptoms as well as the abnormal EKG the patient underwent invasive coronary angiography performed on 07/23/2024 with findings of a 50% ostial circumflex stenosis otherwise, mild luminal irregularities were noted. Left ventricular end-diastolic pressure was normal at 12 mmHg. Medical management recommended. The patient was discharged on a regimen that included aspirin, Eliquis 5 mg twice daily, atorvastatin 40 mg daily, and metoprolol tartrate 50 mg twice daily. The plan was for the patient to return in outpatient cardiology follow- up to discuss outpatient direct-current cardioversion after he had been on unerupted anticoagulation for 4 weeks. The patient states in the meantime he has been taking the metoprolol, atorvastatin, aspirin and Eliquis without interruption. At present he denies any chest discomfort. He describes however recurrent chest pressure with aerobic exertion and noted that yesterday his feet were swollen and purple. The symptoms have resolved in the meantime. EKG performed on presentation yesterday at 1546 and interpreted independently revealed atrial fibrillation with rapid ventricular response 128 bpm, diffuse nonspecific T wave flattening noted in the lateral precordial leads. Compared to the previous tracings from earlier this month, the lateral T wave inversion has resolved. PAST MEDICAL HISTORY Nonobstructive coronary heart disease, 50% ostial circumflex stenosis, 07/23/2024 Persistent atrial fibrillation Dyslipidemia SOCIAL HISTORY He is and lives with his spouse Non-smoker Allergies Allergy/AdvReac Type Severity Reaction Status Date / Time No Known Allergies Allergy Mild Verified 02/06/16 06:31 Home Medications Medication Instructions Recorded Confirmed Type multivitamin (Daily Multi-Vitamin 1 tab PO DAILY 07/24/23 08/16/24 History tablet) tamsulosin 0.4 mg capsule 0.4 mg PO HS 07/24/23 08/16/24 History finasteride 5 mg tablet 5 mg PO DAILY #30 tabs 08/27/23 08/16/24 Rx apixaban 5 mg tablet (Eliquis) 5 mg PO BID #60 tabs 07/22/24 08/16/24 Rx metoprolol tartrate 50 mg tablet 50 mg PO BID #60 tabs 07/22/24 08/16/24 Rx aspirin 81 mg tablet,delayed 81 mg PO DAILY #30 tabs 07/23/24 08/16/24 Rx release atorvastatin 40 mg tablet (Lipitor) 40 mg PO HS #30 tabs 07/23/24 08/16/24 Rx Patient History Medical History History of vitreous hemorrhage History of nonmelanoma skin cancer BPH w urinary obs/LUTS Surgical History History of surgical amputation of finger History of cataract surgery Family History Father Cancer Social History Smoking Status: Never smoker Second Hand Exposure: No; Do You Dip or Chew Tobacco: No; Tobacco Cessation Education Requested by Patient: No Hx Alcohol Use: No Hx Substance Use: No Preferred Language: Croatian Communication Ability: Effective 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 Beliefs That Will Affect Care: None Current Living Situation: Spouse Current Living Situation Comment: lives at home with spouse Other Information That Helps Us Care for You: No Feels Safe at Home: Yes Safety Concerns: Feels Safe At This Time Assistive Devices: None Assistive Devices Comment: none brought with patient Review of Systems Review of Systems: All systems reviewed & are unremarkable except as noted in HPI & below Physical Exam Physical Exam: General: no acute distress and stated age Eyes: conjunctiva are pink and non-injected, sclera clear Neck: normal jugular venous pulse, no hepatojugular reflux Chest: normal shape and normal respiratory effort Lungs: clear to auscultation and percussion Cardiac Exam: -Irregular rhythm, no murmurs Abdomen: abdomen soft, non-tender, no abnormal masses and no hepatosplenomegaly Musculoskeletal: no gait disturbance, no weakness Extremities: Trace ankle edema, no erythema Neuro:awake, conversant, follows commands, no focal motor deficits Psych: appropriate affect and insight. Results & Data Vital Signs (Past 12 Hours) Vital Signs Temp Pulse Pulse Resp BP Pulse Ox O2 Del Method 08/17/24 11:06 36.6 C 90 18 100/69 91 Room Air 08/17/24 08:00 Room Air 08/17/24 07:46 36.5 C 112 H 19 107/73 90 Room Air 08/17/24 07:00 86 08/17/24 04:00 36.7 C 77 18 105/72 92 Room Air Laboratory Results Cardiac Enzymes 08/16/24 08/16/24 08/16/24 Range/Units 16:00 18:05 22:33 AST 21 (13-39) U/L Troponin I High Sens 8.6 10.2 12.6 (0-20) pg/ml 08/17/24 Range/Units 05:53 AST (13-39) U/L Troponin I High Sens 12.4 (0-20) pg/ml Coagulation 08/16/24 Range/Units 16:00 PT 11.5 (9.0-12.0) Seconds APTT 26 (21-31) Seconds CBC 08/16/24 08/17/24 Range/Units 16:00 05:53 WBC 9.25 7.36 (4.8-10.8) K/ul RBC 5.45 5.00 (4.70-6.10) M/uL Hgb 16.3 14.7 (14.0-18.0) g/dl Hct 47.2 43.2 (42.0-52.0) % Plt Count 149 121 L (130-400) K/uL Neut # (Auto) 6.49 4.12 (1.40-6.50) K/uL Lymph # (Auto) 1.63 1.89 (1.20-3.40) K/uL [place] # (Auto) 1.04 H 1.27 H (0.11-0.59) K/uL Eos # (Auto) 0.05 0.04 (0.00-0.50) K/uL Baso # (Auto) 0.03 0.02 (0.00-0.20) K/uL Comprehensive Metabolic Panel 08/16/24 08/17/24 Range/Units 16:00 05:53 Sodium 140 139 (136-145) mmol/L Potassium 4.2 4.1 (3.5-5.1) mmol/L Chloride 105 105 (98-107) mmol/L Carbon Dioxide 28 28 (21-32) mmol/L BUN 25 H 21 (6-23) mg/dl Creatinine 1.44 H 1.22 (0.6-1.4) mg/dl Glucose 104 H 89 (70-99(Fasting)) mg/dl Calcium 9.5 8.9 (8.6-10.3) mg/dl AST 21 (13-39) U/L ALT 28 (7-52) U/L Alkaline Phosphatase 75 (34-104) U/L Total Protein 7.7 (6.0-8.3) gm/dl Albumin 4.7 (3.4-5.0) gm/dl Intake and Output 08/16/24 08/17/24 08/17/24 22:59 06:59 14:59 Intake Total 450 / 450 Output Total 350 / 350 Balance 100 / 100 Intake: IV 200 / 200 Albumin 25% 25 gm In 100 ml @ 100 / 100 50 mls/hr IV ONE ONE Rx#: [id number] Magnesium Sulfate / D5w 1 gm In 100 / 100 100 ml @ 50 mls/hr IV ONE ONE Rx#:[id number] Oral 250 / 250 Output: Urine 350 / 350 Other: Weight 109.452 kg 109.4 kg Weight Measurement Method [facility] Diagnostic Findings EKG as noted above Ankle-brachial indices 08/16/2024, summary of radiology report Right lower extremity ankle brachial index: 1.15 (DP) 1.18 (PT) Left lower extremity ankle brachial index: 1.31 (DP) 1.30 (PT) Echocardiogram performed 07/22/2024: Atrial fibrillation with controlled ventricular sponsor observed during echocardiogram at that time, mild concentric left ventricular hypertrophy Normal LV wall motion, LVEF in the range of 60 to 65% Right ventricle chamber size and systolic function normal Mild left atrial enlargement Trace mitral regurgitation Mild tricuspid regurgitation Doppler findings do not suggest pulmonary hypertension The aortic root is mildly dilated, 4.1 cm - no previous studies available for comparison (2) Chest pain Chest pain type: unspecified Qualified Code(s): R07.9 - Chest pain, unspecified
--- NOTE | 2024-08-17 12:46 | Anesthesiology Consultation ---
Date of Service August 17, 2024 Assessment & Plan (1) Encounter for pre-operative examination: Chart Review Chart Review: Acceptable Risk for Surgery History Height/Weight Height: 5 ft 7 in Weight: 109.4 kg Allergies Allergy/AdvReac Type Severity Reaction Status Date / Time No Known Allergies Allergy Mild Verified 02/06/16 06:31 Medications Home Medications Medication Instructions Recorded Confirmed Last Taken multivitamin (Daily Multi-Vitamin 1 tab PO DAILY 07/24/23 08/16/24 Unknown tablet) tamsulosin 0.4 mg capsule 0.4 mg PO HS 07/24/23 08/16/24 Unknown finasteride 5 mg tablet 5 mg PO DAILY #30 tabs 08/27/23 08/16/24 Unknown apixaban 5 mg tablet (Eliquis) 5 mg PO BID #60 tabs 07/22/24 08/16/24 Unknown metoprolol tartrate 50 mg tablet 50 mg PO BID #60 tabs 07/22/24 08/16/24 Unknown aspirin 81 mg tablet,delayed 81 mg PO DAILY #30 tabs 07/23/24 08/16/24 Unknown release atorvastatin 40 mg tablet (Lipitor) 40 mg PO HS #30 tabs 07/23/24 08/16/24 Unknown Active Medications Generic Name Dose Route Start Last Admin Trade Name Freq PRN Reason Stop Dose Admin Apixaban 5 mg 08/17/24 09:15 08/17/24 10:21 Apixaban 5 Mg Tablet PO 09/16/24 09:14 5 mg BID MEGGAN Administration Aspirin 81 mg 08/17/24 09:00 08/17/24 08:51 Aspirin 81 Mg Ectab PO 09/16/24 08:59 81 mg DAILY MEGGAN Administration Atorvastatin Calcium 40 mg 08/16/24 22:02 08/16/24 23:39 Atorvastatin 40 Mg Tab PO 09/15/24 22:01 40 mg HS MEGGAN Administration Finasteride 5 mg 08/17/24 09:00 08/17/24 08:51 Finasteride 5 Mg Tab PO 09/16/24 08:59 5 mg DAILY MEGGAN Administration Guaifenesin 1,200 mg 08/17/24 09:00 08/17/24 10:21 Guaifenesin 600 Mg Tabcr PO 09/16/24 08:59 1,200 mg Q12 MEGGAN Administration Metoprolol Tartrate 75 mg 08/17/24 09:00 08/17/24 08:52 Metoprolol Tartrate 25 Mg Tab PO 09/16/24 08:59 75 mg BID MEGGAN Administration Multivitamins 1 tab 08/17/24 09:00 08/17/24 08:52 Multivitamin Tab PO 09/16/24 08:59 1 tab DAILY MEGGAN Administration Tamsulosin HCl 0.4 mg 08/16/24 22:02 08/16/24 23:40 Tamsulosin Hcl 0.4 Mg Cap PO 09/15/24 22:01 0.4 mg HS MEGGAN Administration Past Medical History Medical History (Updated 08/17/24 @ 12:46 by Saroj Ratliff MD) Atrial fibrillation with rapid ventricular response Unstable angina pectoris CHERYL on CPAP History of vitreous hemorrhage History of nonmelanoma skin cancer BPH w urinary obs/LUTS Past Family History Family History Father Cancer Past Surgical History Surgical History History of surgical amputation of finger History of cataract surgery Social History Smoking Status: Never smoker Do You Dip or Chew Tobacco: No Hx Alcohol Use: No Hx Substance Use: No substance use type: does not use Physical Exam Vital Signs Last Vital Signs Temp 36.6 C 08/17/24 11:06 Pulse 90 08/17/24 11:06 Resp 18 08/17/24 11:06 BP 100/69 08/17/24 11:06 Pulse Ox 91 08/17/24 11:06 O2 Del Method Room Air 08/17/24 11:06 Testing Laboratory Results 08/17/24 05:53 08/17/24 05:53 PT 11.5 Seconds (9.0-12.0) 08/16/24 16:00 INR 1.1 (0.9-1.1) 08/16/24 16:00 APTT 26 Seconds (21-31) 08/16/24 16:00 Urine Color Yellow 08/16/24 23:07 Urine Appearance Clear (Clear) 08/16/24 23:07 Urine pH 7.0 (4.5-7.5) 08/16/24 23:07 Ur Specific [place] 1.023 (1.000-1.030) 08/16/24 23:07 Urine Protein Negative (Negative) 08/16/24 23:07 Urine Glucose (UA) Negative (Negative) 08/16/24 23:07 Urine Ketones Negative (Negative) 08/16/24 23:07 Urine Nitrite Negative (Negative) 08/16/24 23:07 Ur Leukocyte Esterase Negative (Negative) 08/16/24 23:07 Electrocardiogram Date: 08/16/24 Findings: + AFIB @ (128) Echocardiogram Date: 07/22/24 EF: 60% LV Function: normal Other Findings: + LVH (mild) Valvular Disease: + no significant valvular disease
--- NOTE | 2024-08-17 13:09 | Hospitalist Progress Note ---
Date of Service August 17, 2024 Assessment & Plan (1) Chest pain: (2) Atrial fibrillation with rapid ventricular response: (3) CAD (coronary artery disease): (4) CHERYL on CPAP: (5) Morbid obesity: Plan This is a 74 yr old [place] Speaking male who has a significant hx of CAD, persistent atrial fibrillation, CHERYL on CPAP, obesity, BPH who presents to ED 2/2 chest pain and irr heart beat. On Admission pt had negative trops x 3 and ecg revealed atrial fibrillation with RVR w/o significant ischemic change. Pt is now chest pain free but still in atrial fib. He remains on eliquis. His metoprolol was uptitrated on admission to 75mg bid. Of note pt hospitalized in early July for similar sx. At that time a cardiac cath was performed due to concerning ecg changes with findings of a 50% ostial circumflex stenosis otherwise, mild luminal irregularities were noted. Left ventricular end-diastolic pressure was normal at 12 mmHg. Medical management recommended. He was discharged on asa 81mg, eliquis 5mg twice daily, atorvastatin 40mg daily and metoprolol tartrate 50mg twice daily. Pt currently admitted to PCU discussed case with cardiology Dr. Shay and tentative plan is to proceed to TYLER and DCCV later today Keep NPO except meds continue current regimen of eliquis, asa, statin and metoprolol Potassium and magnesium adequate TSH 0.905 Continue CPAP at hs, encourage diet lifestyle modifcations DVT ppx: Eliquis FULL CODE PCP: Monika smith Dispo: pt to remain admitted for TYLER and DCCV later today Pt was seen and examined in collaboration with Dr. Hanson, please see addendum I spent a total of 51 minutes coordinating, documenting and providing care for this patient excluding time spent in the performance of separately billed services or time spent by another provider/QHP. Admission and Anticipated Discharge Date Admission Date: August 16, 2024 Supervising Physician Co-Signing Physician Notes Attending Addendum: Case reviewed with the advanced practitioner. I have reviewed the advanced practitioner's documentation on the date of service referenced in note, and I agree with, and take responsibility for the plan of care. please refer to her notes for full details diagnoses and plan of care as per advanced practitioner's notes Campos Hanson MD Subjective Pt seen in 459-2. F/U chest pain, afib rvr. Pt denies CP currently. He reports feeling irregularity in heart. Currently he has a CERVANTES due to lack of caffeine. He denies f/c/s, chest pain, sob, n/v/d, abd pain. Review of Systems Review of Systems: All systems reviewed & are unremarkable except as noted in HPI & below Physical Exam Physical Exam: Gen: WD/WN, NAD, A&O x3,sitting up at bedside HEENT: Normocephalic, atraumatic, conjunctivae moist, sclerae anicteric, mucous membranes moist. Lung: Clear to Auscultation bilaterally, no wheezes/rales/rhonchi Heart: IRR/IRR, no murmurs, rubs, or gallops Abdomen: Soft, NT, ND +BS x 4 Extremities: No edema Skin: Warm, no rash, negative turgor. Results & Data Results & Data Vital Signs (Past 12 Hours) Vital Signs Temp Pulse Pulse Resp BP Pulse Ox O2 Del Method 08/17/24 11:06 36.6 C 90 18 100/69 91 Room Air 08/17/24 08:00 Room Air 08/17/24 07:46 36.5 C 112 H 19 107/73 90 Room Air 08/17/24 07:00 86 08/17/24 04:00 36.7 C 77 18 105/72 92 Room Air Laboratory Results Short CBC 08/16/24 08/17/24 Range/Units 16:00 05:53 WBC 9.25 7.36 (4.8-10.8) K/ul Hgb 16.3 14.7 (14.0-18.0) g/dl Hct 47.2 43.2 (42.0-52.0) % Plt Count 149 121 L (130-400) K/uL BMP 08/16/24 08/17/24 16:00 05:53 Sodium 140 139 Potassium 4.2 4.1 Chloride 105 105 Carbon Dioxide 28 28 BUN 25 H 21 Creatinine 1.44 H 1.22 Glucose 104 H 89 Calcium 9.5 8.9 Liver Function 08/16/24 Range/Units 16:00 Total Bilirubin 0.8 (0.2-1.0) mg/dl AST 21 (13-39) U/L ALT 28 (7-52) U/L Alkaline Phosphatase 75 (34-104) U/L Albumin 4.7 (3.4-5.0) gm/dl Urine 08/16/24 Range/Units 23:07 Urine Color Yellow Urine Appearance Clear (Clear) Urine pH 7.0 (4.5-7.5) Ur Specific [place] 1.023 (1.000-1.030) Urine Protein Negative (Negative) Urine Glucose (UA) Negative (Negative) I have independently reviewed and interpreted patient's cbc, bmp, mag Medications Administered Current Inpatient Medications Acetaminophen (Acetaminophen 325 Mg Tab) 650 mg PO QID PRN PRN Reason: pain/fever Stop: 09/15/24 22:35 Apixaban (Apixaban 5 Mg Tablet) 5 mg PO BID MEGGAN Stop: 09/16/24 09:14 Last Admin: 08/17/24 10:21 Dose: 5 mg Aspirin (Aspirin 81 Mg Ectab) 81 mg PO DAILY MEGGAN Stop: 09/16/24 08:59 Last Admin: 08/17/24 08:51 Dose: 81 mg Atorvastatin Calcium (Atorvastatin 40 Mg Tab) 40 mg PO HS MEGGAN Stop: 09/15/24 22:01 Last Admin: 08/16/24 23:39 Dose: 40 mg Finasteride (Finasteride 5 Mg Tab) 5 mg PO DAILY MEGGAN Stop: 09/16/24 08:59 Last Admin: 08/17/24 08:51 Dose: 5 mg Guaifenesin (Guaifenesin 600 Mg Tabcr) 1,200 mg PO Q12 MEGGAN Stop: 09/16/24 08:59 Last Admin: 08/17/24 10:21 Dose: 1,200 mg Hydromorphone HCl (Hydromorphone Inj 0.5 Mg/0.5 Ml Syr) 0.5 mg IV Q6H PRN PRN Reason: Pain Stop: 08/30/24 20:46 Promethazine HCl (Phenergan) 6.25 mg in 50.25 mls @ 201 mls/hr IV Q6H PRN PRN Reason: Nausea And Vomiting Stop: 09/15/24 20:47 Metoprolol Tartrate (Metoprolol Tartrate 25 Mg Tab) 75 mg PO BID MEGGAN Stop: 09/16/24 08:59 Last Admin: 08/17/24 08:52 Dose: 75 mg Multivitamins (Multivitamin Tab) 1 tab PO DAILY MEGGAN Stop: 09/16/24 08:59 Last Admin: 08/17/24 08:52 Dose: 1 tab Nitroglycerin (Nitroglycerin Sl 0.4 Mg/Tab Tab) 0.4 mg SL Q5M PRN PRN Reason: Chest Pain Stop: 09/15/24 21:57 Tamsulosin HCl (Tamsulosin Hcl 0.4 Mg Cap) 0.4 mg PO HS MEGGAN Stop: 09/15/24 22:01 Last Admin: 08/16/24 23:40 Dose: 0.4 mg Tramadol HCl (Tramadol Hcl 50 Mg Tablet) 25 - 50 mg PO Q4H PRN PRN Reason: Pain Stop: 09/15/24 20:46 (1) Chest pain Chest pain type: unspecified Qualified Code(s): R07.9 - Chest pain, unspecified
--- NOTE | 2024-08-17 13:53 | Anesthesiology Progress Note ---
Date of Service August 17, 2024 Anesthesia Post Procedure Vital Signs Vital Signs: Temp Pulse Pulse Resp BP BP Pulse Ox 08/17/24 11:06 36.6 C 90 18 100/69 91 08/17/24 08:00 08/17/24 07:46 36.5 C 112 H 19 107/73 90 08/17/24 07:00 86 08/17/24 04:00 36.7 C 77 18 105/72 92 08/17/24 00:00 102 H 08/16/24 22:20 08/16/24 22:16 37.9 C H 98 H 20 125/89 93 08/16/24 21:36 109 H 18 128/90 98 08/16/24 20:30 118 H 18 122/96 95 08/16/24 20:09 106 H 08/16/24 18:30 111 H 20 113/84 95 08/16/24 18:00 109 H 21 146/102 H 93 08/16/24 17:30 106 H 22 145/104 H 93 08/16/24 17:00 100 H 20 135/99 94 08/16/24 16:30 94 H 16 143/102 H 94 08/16/24 16:27 104 H 08/16/24 16:24 106 H 28 H 187/125 H 95 08/16/24 15:59 104 H 95 08/16/24 15:59 104 H 20 145/90 H 95 08/16/24 15:34 37.5 C 105 H 20 137/92 94 O2 Del Method 08/17/24 11:06 Room Air 08/17/24 08:00 Room Air 08/17/24 07:46 Room Air 08/17/24 07:00 08/17/24 04:00 Room Air 08/17/24 00:00 08/16/24 22:20 Room Air 08/16/24 22:16 Room Air 08/16/24 21:36 08/16/24 20:30 08/16/24 20:09 08/16/24 18:30 08/16/24 18:00 08/16/24 17:30 08/16/24 17:00 08/16/24 16:30 08/16/24 16:27 08/16/24 16:24 08/16/24 15:59 Room Air 08/16/24 15:59 Room Air 08/16/24 15:34 Room Air Pain Intensity Anterior Head: Pain Intensity: 3 Transfer of Care Handoff Completed per policy Notes Mental Status: alert / awake / arousable and participated in evaluation Patient Amnestic to Procedure: Yes Nausea / Vomiting: adequately controlled Pain: adequately controlled Airway Patency, RR, SpO2: stable & adequate BP & HR: stable & adequate Hydration State: stable & adequate Anesthetic Complications: no major complications apparent
--- NOTE | 2024-08-17 13:54 | Cardioversion ---
Date of Service August 17, 2024 Electrical Cardioversion Rpt Electrical Cardioversion Report Operation Date: 08/17/24 13:00 Procedure Preprocedure diagnosis: Symptomatic persistent atrial fibrillation Preprocedure diagnosis: Successful conversion to sinus rhythm Transesophageal echocardiogram guided direct-current cardioversion procedure: The patient's vital signs were monitored via the standard fashion. After informed consent was obtained and timeout was performed, the patient was sedated with the assistance of the anesthesia service receiving a total of 60 mg of IV lidocaine and 120 mg of IV propofol. The patient underwent a focused transesophageal echocardiogram evaluation for restratification. No left atrial appendage thrombus or left atrial thrombus was observed. Trace mitral regurgitation was observed. The patient then underwent direct-current cardioversion. He received initial dose of 200 J of synchronized biphasic energy with successful conversion. He then received a second dose of 300 J of synchronized biphasic energy with successful conversion to sinus bradycardia in the 50s. Health Safety Engineer Partha Shay DO Train Control Electronic Technician Yanelis Orr, RCS Estimated Blood Loss 0 Findings Consistent with Post-Op Diagnosis as noted above. Anesthesia Type MAC Complications none No Complications were immediately apparent
--- NOTE | 2024-08-17 13:55 | Communication Note ---
Date of Service: August 17, 2024 Patient underwent direct-current cardioversion. Postprocedure EKG ordered and the results will be reviewed. Recommend ongoing observation overnight tonight and reassessment with regards to discharge visibility tomorrow depending upon how patient is feeling.
--- NOTE | 2024-08-17 14:56 | Electrocardiogram Report ---
Test Reason : Blood Pressure : */* mmHG Vent. Rate : 57 BPM Atrial Rate : 57 BPM P-R Int : 142 ms QRS Dur : 96 ms QT Int : 404 ms P-R-T Axes : 54 67 55 degrees QTcB Int : 393 ms Sinus bradycardia Otherwise normal ECG When compared with ECG of 16-Aug-2024 15:46, Sinus rhythm has replaced Atrial fibrillation Vent. rate has decreased by 71 bpm T wave inversion no longer evident in Inferior leads Nonspecific T wave abnormality no longer evident in Lateral leads Confirmed by Kelvin Glass ([id number]) on 08/17/2024 2:55:32 PM Referred By: REFERRED SELF Confirmed By: Kelvin Glass
[2024-08-17] MEDS: LIDOCAINE 2% 2 ML VIAL/AMP(20MG/ML) INFIL ONE ×3 (17:09→17:11)
[2024-08-17] MEDS: BENZOCAINE/TETRACAIN/BUTAM 50 APPLN/5 GM CAN EXT ONE (17:09)
[2024-08-17] MEDS: PROPOFOL IV EMULSION 10 MG/ML 20 ML VIAL IV ONE ×2 (17:10→17:11)
[2024-08-17] MEDS: COUGH DROP (SUGAR FREE) LOZ 24 LOZ/1 BOX BUCCAL PRN (20:17)
[2024-08-17] MEDS: METOPROLOL TARTRATE 50 MG TAB PO SCH (20:17)
[2024-08-18] MEDS ORDERED: BENZONATATE 100 MG CAPSULE PO PRN (08:40)
[2024-08-18] MEDS: BENZONATATE 100 MG CAPSULE PO ONE (09:00)
[2024-08-18 09:46] LABS: Basophils # (auto) 0.02 K/uL (0.00-0.20); Basophils % (auto) 0.4 %; Eosinophils # (auto) 0.08 K/uL (0.00-0.50); Eosinophils % (auto) 1.4 %; Hemoglobin 14.4 g/dl (14.0-18.0); Immature Granulocytes # (auto) 0.01 K/uL (0.01-0.20); Immature Granulocytes % (auto) 0.2 %; Lymphocytes # (auto) 1.81 K/uL (1.20-3.40); Lymphocytes % (auto) 31.9 %; Mean Corpuscular Hemoglobin 29.3 pg (25.0-34.0); Mean Corpuscular Hgb Conc 34.3 g/dL (32.0-36.0); Mean Corpuscular Volume 85.5 fL (80.0-100.0); Mean Platelet Volume 10.4 fL (9.4-12.4); Monocytes # (auto) 0.96 K/uL (0.11-0.59); Monocytes % (auto) 16.9 %; Neutrophils # (auto) 2.79 K/uL (1.40-6.50); Neutrophils % (auto) 49.2 %; Platelet Count 114 K/uL (130-400); RDW Coefficient of Variation 12.7 % (11.5-14.5); RDW Standard Deviation 39.6 fL (36.4-46.3); Red Blood Count 4.91 M/uL (4.70-6.10); White Blood Count 5.67 K/ul (4.8-10.8)
--- NOTE | 2024-08-18 09:54 | XRay Report ---
XR chest 2V PA/lateral CLINICAL HISTORY: cough COMPARISON STUDY: 08/16/2024 FINDINGS: Heart size and pulmonary vasculature are normal. No effusion or consolidation. IMPRESSION: No pneumonia seen. ACT 112: Negative or not required by law. Electronically signed by: Carmelo Laureano M.D. 08/18/2024 9:52 AM
[2024-08-18 09:59] LABS: BUN Creatinine Ratio 19.3 (10-20); Calcium 8.9 mg/dl (8.6-10.3); Creatinine Clr Calc Pharmacy 66.2 ml/min; Magnesium 2.2 mg/dl (1.7-2.4); Potassium 3.8 mmol/L (3.5-5.1)
--- NOTE | 2024-08-18 10:54 | Hospitalist Progress Note ---
Date of Service August 18, 2024 Assessment & Plan (1) Chest pain: (2) Atrial fibrillation with rapid ventricular response: (3) CAD (coronary artery disease): (4) CHERYL on CPAP: (5) Morbid obesity: Plan This is a 74 yr old [place] Speaking male who has a significant hx of CAD, persistent atrial fibrillation, CHERYL on CPAP, obesity, BPH who presents to ED 2/2 chest pain and irr heart beat. On Admission pt had negative trops x 3 and ecg revealed atrial fibrillation with RVR w/o significant ischemic change. He remains on eliquis. His metoprolol was uptitrated on admission to 75mg bid. Of note pt hospitalized in early July for similar sx. At that time a cardiac cath was performed due to concerning ecg changes with findings of a 50% ostial circumflex stenosis otherwise, mild luminal irregularities were noted. Left ventricular end-diastolic pressure was normal at 12 mmHg. Medical management recommended. He was discharged on asa 81mg, eliquis 5mg twice daily, atorvastatin 40mg daily and metoprolol tartrate 50mg twice daily. Chest pain Atrial fibrillation with RVR Pt currently admitted to PCU Pt underwent TYLER and DCCV yesterday with successful synagogue of NSR he remains in NSR feeling much better He reports dry cough present for 4-5 days - will check labs, resp biofire, bnp, CXR continue current regimen of eliquis, asa, statin and metoprolol mag adequate, K 3.8, will give 40meq of KCL to keep > 4 TSH 0.905 Continue CPAP at hs, encourage diet lifestyle modifcations #Influenza A #Dry cough pt reports dry cough, he is not hypoxic CXR is w/o consolidation Will start Tamiflu, tessalon perles DVT ppx: Eliquis FULL CODE PCP: Monika smith Dispo: await cardiology eval, PT/OT, possible d/c later today pending cardiology clearance Pt was seen and examined in collaboration with Dr. Hanson, please see addendum I spent a total of 52 minutes coordinating, documenting and providing care for this patient excluding time spent in the performance of separately billed services or time spent by another provider/QHP. Admission and Anticipated Discharge Date Admission Date: August 17, 2024 Supervising Physician Co-Signing Physician Notes delayed entry date of service noted above Attending Addendum: Case reviewed with the advanced practitioner. I have reviewed the advanced practitioner's documentation on the date of service referenced in note, and I agree with, and take responsibility for the plan of care. please refer to her notes for full details patient seen and examined, records reviewed by myself as well diagnoses and plan of care as per advanced practitioner's notes I spent a total of 35 minutes coordinating, documenting, and providing care for this patient, excluding time spent in the performance of separately billed services or time spent by another provider/QHP. Campos Hanson MD Subjective Pt seen in 9-2. F/U chest pain, afib rvr. He reports feeling well since DCCV. His sx have resolved. He denies f/c/s, chest pain, sob, palps, n/v/d. He does endorse a dry cough thats been present for 4-5 days. No other URI sx. Denies congestion, PND, sneezing. HE denies any hx of asthma or smoking. Hx obtained with the assistance of language line tipple greaser. Review of Systems Review of Systems: All systems reviewed & are unremarkable except as noted in HPI & below Physical Exam Physical Exam: Gen: WD/WN, NAD, A&O x3,sitting up at bedside HEENT: Normocephalic, atraumatic, conjunctivae moist, sclerae anicteric, mucous membranes moist. Lung: Clear to Auscultation bilaterally, no wheezes/rales/rhonchi Heart: RRR, RACW red rash where likely pads were placed for DCCV, no murmurs, rubs, or gallops Abdomen: Soft, NT, ND +BS x 4 Extremities: No edema Skin: Warm, no rash, negative turgor. Results & Data Results & Data Vital Signs (Past 12 Hours) Vital Signs Temp Pulse Pulse Resp BP Pulse Ox O2 Del Method 08/18/24 08:44 36.6 C 60 22 120/78 93 Room Air 08/18/24 07:52 Room Air 08/18/24 04:00 36.5 C 58 L 18 106/68 98 Room Air 08/17/24 23:16 62 Laboratory Results I have independently reviewed and interpreted patient's CBC, BMP, Mag, BNP, Resp biofire Diagnostic Findings CXR independently reviewed/interpreted by myself and negative Medications Administered Current Inpatient Medications Acetaminophen (Acetaminophen 325 Mg Tab) 650 mg PO QID PRN PRN Reason: pain/fever Stop: 09/15/24 22:35 Apixaban (Apixaban 5 Mg Tablet) 5 mg PO BID MEGGAN Stop: 09/16/24 09:14 Last Admin: 08/18/24 08:59 Dose: 5 mg Aspirin (Aspirin 81 Mg Ectab) 81 mg PO DAILY MEGGAN Stop: 09/16/24 08:59 Last Admin: 08/18/24 09:00 Dose: 81 mg Atorvastatin Calcium (Atorvastatin 40 Mg Tab) 40 mg PO HS MEGGAN Stop: 09/15/24 22:01 Last Admin: 08/17/24 20:18 Dose: 40 mg Benzonatate (Benzonatate 100 Mg Capsule) 100 mg PO TID PRN PRN Reason: cough Stop: 09/17/24 08:59 Finasteride (Finasteride 5 Mg Tab) 5 mg PO DAILY MEGGAN Stop: 09/16/24 08:59 Last Admin: 08/18/24 08:59 Dose: 5 mg Guaifenesin (Guaifenesin 600 Mg Tabcr) 1,200 mg PO Q12 MEGGAN Stop: 09/16/24 08:59 Last Admin: 08/18/24 09:49 Dose: Not Given Hydromorphone HCl (Hydromorphone Inj 0.5 Mg/0.5 Ml Syr) 0.5 mg IV Q6H PRN PRN Reason: Pain Stop: 08/30/24 20:46 Promethazine HCl (Phenergan) 6.25 mg in 50.25 mls @ 201 mls/hr IV Q6H PRN PRN Reason: Nausea And Vomiting Stop: 09/15/24 20:47 Menthol (Cough Drop (Sugar Free) Delfino 24 Delfino/1 Box) 1 delfino BUCCAL NOW PRN PRN Reason: Cough Stop: 08/20/24 19:36 Last Admin: 08/17/24 20:17 Dose: 1 delfino Metoprolol Tartrate (Metoprolol Tartrate 50 Mg Tab) 50 mg PO BID MEGGAN Stop: 09/16/24 20:59 Last Admin: 08/18/24 08:59 Dose: 50 mg Multivitamins (Multivitamin Tab) 1 tab PO DAILY MEGGAN Stop: 09/16/24 08:59 Last Admin: 08/18/24 09:00 Dose: 1 tab Nitroglycerin (Nitroglycerin Sl 0.4 Mg/Tab Tab) 0.4 mg SL Q5M PRN PRN Reason: Chest Pain Stop: 09/15/24 21:57 Tamsulosin HCl (Tamsulosin Hcl 0.4 Mg Cap) 0.4 mg PO HS MEGGAN Stop: 09/15/24 22:01 Last Admin: 08/17/24 20:18 Dose: 0.4 mg Tramadol HCl (Tramadol Hcl 50 Mg Tablet) 25 - 50 mg PO Q4H PRN PRN Reason: Pain Stop: 09/15/24 20:46 (1) Chest pain Chest pain type: unspecified Qualified Code(s): R07.9 - Chest pain, unspecified
[2024-08-18 11:01] LABS: Adenovirus PCR Not Detected (NotDetected); Bordetella parapertussis PCR Not Detected (NotDetected); Bordetella pertussis PCR Not Detected (NotDetected); Chlamydia pneumoniae PCR Not Detected (NotDetected); Coronavirus 229E PCR Not Detected (NotDetected); Coronavirus CoV-2 (COVID19)PCR Not Detected (NotDetected); Coronavirus HKU1 PCR Not Detected (NotDetected); Coronavirus NL63 PCR Not Detected (NotDetected); Coronavirus OC43PCR Not Detected (NotDetected); Human Metapneumovirus PCR Not Detected (NotDetected); Influenza A (H1 2009) PCR DETECTED (NotDetected); Influenza B PCR Not Detected (NotDetected); Mycoplasma pneumoniae PCR Not Detected (NotDetected); Parainfluenza Virus 1 PCR Not Detected (NotDetected); Parainfluenza Virus 2 PCR Not Detected (NotDetected); Parainfluenza Virus 3 PCR Not Detected (NotDetected); Parainfluenza Virus 4 PCR Not Detected (NotDetected); Respiratory Syncytial VirusPCR Not Detected (NotDetected); Rhinovirus/Enterovirus PCR Not Detected (NotDetected)
[2024-08-18] MEDS: POTASSIUM CHLORIDE CRTAB 20 MEQ TABCR PO STA (11:53)
[2024-08-18] MEDS: OSELTAMIVIR PHOSPHATE 75 MG CAP PO STA (11:55)
[2024-08-18 12:27] VITALS: PULSE 53; RESP 18; TEMP 98.2; O2SAT 94
--- NOTE | 2024-08-18 15:01 | Discharge Summary ---
Discharge Summary Date of Service August 18, 2024 Principal Dx & Hospital Course #1 = Principal Diagnosis (1) Chest pain: (2) Atrial fibrillation with rapid ventricular response: (3) CAD (coronary artery disease): (4) CHERYL on CPAP: (5) Morbid obesity: Plan This is a 74 yr old [place] Speaking male who has a significant hx of CAD, persistent atrial fibrillation, CHERYL on CPAP, obesity, BPH who presents to ED 2/2 chest pain and irr heart beat. On Admission pt had negative trops x 3 and ecg revealed atrial fibrillation with RVR w/o significant ischemic change. He remains on eliquis. His metoprolol was uptitrated on admission to 75mg bid. Of note pt hospitalized in early July for similar sx. At that time a cardiac cath was performed due to concerning ecg changes with findings of a 50% ostial circumflex stenosis otherwise, mild luminal irregularities were noted. Left ventricular end-diastolic pressure was normal at 12 mmHg. Medical management recommended. He was discharged on asa 81mg, eliquis 5mg twice daily, atorvastatin 40mg daily and metoprolol tartrate 50mg twice daily. Pt underwent TYLER and DCCV by Dr. Shay with successful conversion to NSR. He remained on Eliquis uninterrupted. His metoprolol was reduced back to 50mg bid due to bradycardia. He did have replacement of magnesium and potassium throughout hospital stay. On day of discharge pt complained of a dry cough. He tested + for influenza A. He otherwise felt well. He was ambulating about unit w/o assistance and VSS. He will be discharged home today with close outpatient follow up. Case was discussed with cardiology Dr. Shay prior to discharge. Notes For Next Care Provider Please check BMP and mag at hospital follow up as both were low during hospital stay. Please ensure pt has cardiology follow up. Currently appt is in November; however Dr. Shay stated he was ensure a sooner follow up. Medication Changes From Visit Tamiflu 75mg by mouth twice daily for 5 days. This is an anti viral to help shorten the duration of your flu symptoms. Next dose is due 08/18/24 in the evening. Tessalon Perle 100mg every 8 hours as needed for cough. Continue all other medications as prescribed. Admission HPI Per Admitting Provider History obtained from patient, family, and records. Limited history from patient secondary to language barrier. Medical history significant for nonobstructive CAD, valvular heart disease (mild TR, trace MR), A-fib on Eliquis, hypertension, CHERYL on CPAP, prediabetes, skin cancer as per records, BPH. Recent confinement last month for new onset A-fib. Moderate single-vessel CAD 50% on diagnostic cardiac catheterization due to chest pain complaints. Medical management recommended. 3 days ago, patient experienced constant left-sided chest pain described as pressure. Somewhat pleuritic. No exertion. Compliant with home medications. Symptoms later followed by dry cough symptoms. Some leg swelling with purplish feet discoloration as per family noted this morning. Denies headache complaints. Not sure about sick contacts. Uncontrolled BP and rapid A-fib upon arrival at the ER. SBP 180s, heart rate 110s. IV Cardizem administered at the ER. Chest pain relieved by nitroglycerin at the ER. 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, born in [facility] Admission Exam Per Admitting Provider GENERAL: Comfortable, pleasant, obese, no respiratory distress SKIN: Normal color, warm HEENT: [place] palpebral conjunctivae, no ptosis, dry buccal mucosa NECK : Supple, short neck, no tenderness CHEST : Decreased breath sounds, minimal left chest wall tenderness tenderness HEART : Irregular, no obvious murmurs ABDOMEN: Some distention, nontender EXTREMITIES : Minimal LE swelling without tenderness, no other conspicuous deformities noted NEUROLOGIC : Coherent, no facial asymmetry, no other gross focality Discharge Exam Gen: WD/WN, NAD, A&O x3,sitting up at bedside HEENT: Normocephalic, atraumatic, conjunctivae moist, sclerae anicteric, mucous membranes moist. Lung: Clear to Auscultation bilaterally, no wheezes/rales/rhonchi Heart: RRR, RACW red rash where likely pads were placed for DCCV, no murmurs, rubs, or gallops Abdomen: Soft, NT, ND +BS x 4 Extremities: No edema Skin: Warm, no rash, negative turgor. Updated Medication List Medication Instructions Recorded Confirmed Type multivitamin (Daily Multi-Vitamin 1 tab PO DAILY 07/24/23 08/16/24 History tablet) tamsulosin 0.4 mg capsule 0.4 mg PO HS 07/24/23 08/16/24 History finasteride 5 mg tablet 5 mg PO DAILY #30 tabs 08/27/23 08/16/24 Rx apixaban 5 mg tablet (Eliquis) 5 mg PO BID #60 tabs 07/22/24 08/16/24 Rx metoprolol tartrate 50 mg tablet 50 mg PO BID #60 tabs 07/22/24 08/16/24 Rx aspirin 81 mg tablet,delayed 81 mg PO DAILY #30 tabs 07/23/24 08/16/24 Rx release atorvastatin 40 mg tablet (Lipitor) 40 mg PO HS #30 tabs 07/23/24 08/16/24 Rx benzonatate 100 mg capsule 100 mg PO TID PRN cough #30 caps 08/18/24 Rx oseltamivir 75 mg capsule (Tamiflu) 75 mg PO BID #9 caps 08/18/24 Rx Hospital Stay Data Consultations 08/16/24 19:12 ED Decision to Admit Stat 08/17/24 10:42 Consult Cardiology Routine 08/17/24 12:06 Consult Anesthesiology Routine Procedures Performed Operation Date: 08/17/24 13:00 Actual Procedures p Echo Transesophageal - DO gabriela Jones Doppler Echo Limited/Follow Up - DO gabriela Jones Echo Color Flow - Partha Shay DO Diagnostic Imagining Performed Chest X-Ray 08/16/24 15:42 INDICATION: Chest pain. TECHNIQUE: Frontal radiograph of the chest. COMPARISON: Radiograph from 07/21/2024. FINDINGS: Cardiomegaly. Pulmonary vasculature appear within normal limits. No infiltrate, pleural effusion or pneumothorax. No acute osseous abnormality evident. IMPRESSION: No acute cardiopulmonary process. Electronically signed by Thee Alvarez 08-16-2024 4:28 PM Ankle Brachial Index 08/16/24 20:47 Exam(s): US ASHLEIGH EXAM: US Duplex Bilateral Lower Extremities Arteries, Limited CLINICAL HISTORY: Reason for exam: LE discoloration/pain. TECHNIQUE: Real-time duplex limited ultrasound scan of the bilateral lower extremity arteries for ASHLEIGH evaluation. B-mode two-dimensional vascular structure, Doppler spectral analysis and color flow Doppler imaging. COMPARISON: No relevant prior studies available. FINDINGS/IMPRESSION: Right lower extremity ankle brachial index: 1.15 (DP) 1.18 (PT) Left lower extremity ankle brachial index: 1.31 (DP) 1.30 (PT) Electronically signed by: Maria C Villeda M.D. 08/16/24 22:46 PM Chest X-Ray 08/18/24 08:40 XR chest 2V PA/lateral CLINICAL HISTORY: cough COMPARISON STUDY: 08/16/2024 FINDINGS: Heart size and pulmonary vasculature are normal. No effusion or consolidation. IMPRESSION: No pneumonia seen. ACT 112: Negative or not required by law. Electronically signed by: Carmelo Laureano M.D. 08/18/2024 9:52 AM Pending Results Patient Have Any Pending Studies at Discharge: No Discharge Instructions Given to Patient (Per Discharging Provider) MEDICATION CHANGES: Tamiflu 75mg by mouth twice daily for 5 days. This is an anti viral to help shorten the duration of your flu symptoms. Next dose is due 08/18/24 in the evening. Tessalon Perle 100mg every 8 hours as needed for cough. Continue all other medications as prescribed. SUMMARY OF TEST RESULTS: You were admitted to the hospital due to chest pain and atrial fibrillation with RVR. You underwent a trans esophageal echocardiogram with cardioversion back into normal sinus rhythm. You remained in normal sinus rhythm. Unfortunately you tested positive for Influenza A while hospitalized. PENDING TEST RESULTS: None RECOMMENDATIONS FOR FOLLOW-UP: Please follow up with Primary Care Provider upon discharge. Please take all medications as prescribed. Please follow up with cardiology as scheduled. They will call you to arrange a sooner appointment then in November. It is recommended you stay well hydrated. It is suspected you may have a dry cough for 1-2 weeks as a result of the Flu. You may also experience fever, chills, headache, nausea, vomiting, diarrhea, sinus congestion or sore throat. If any of these develop please get plenty of rest. You may take over the counter cold/flu remedies, but please be sure to avoid any medications continue aspirin/ibuprofen/aleve/advil or decongestant products. Please talk to your Primary Care Provider if you have any questions. OTHER INSTRUCTIONS: Seek medical attention if you have: * temperature above 101 * chest pain or trouble breathing * abdominal pain, nausea, vomiting * diarrhea, dark stools or bloody stools * any unanswered questions or concerns Call 911 if symptoms are severe. Please take good care of yourself. It has been a pleasure taking care of you. Please take care of yourself. If you have any questions regarding your recent hospitalization please contact [facility] and request Jona Castillo @ [phone]. Total Time Total Time Spent Total Time Spent (In Minutes): 55 minutes
--- NOTE | 2024-08-18 15:18 | Cardiology Progress Note ---
Date of Service August 18, 2024 Assessment & Plan (1) Atrial fibrillation with rapid ventricular response: Plan: * Patient's status post TYLER guided cardioversion on 08/17/2024, repeat EKG performed post procedure 127/25 at 1404 revealed sinus bradycardia [address] segments. * Continue metoprolol titrate 50 mg twice daily * Continue Eliquis5 mg twice daily without interruption (2) Chest pain: Plan: * Cardiac catheterization performed in early July, revealed 50% ostial circumflex stenosis. Ongoing medication management is recommended with aspirin and atorvastatin * Question if presenting symptoms of chest discomfort were due to atrial fibrillation, or perhaps some degree of pleuritic discomfort related to influenza. No pericardial fusion noted on TYLER yesterday. (3) Influenza A: Plan: * Agree with plan for Tamiflu and Mucinex as needed. Patient stable for discharge from a cardiac perspective. Patient has a cardiology follow-up visit in November, I will attempt to facilitate a sooner appointment. Case reviewed with Harper Aldridge PA-C of the [facility] service for the purpose of coordination of care. Admission and Anticipated Discharge Date Admission Date: August 17, 2024 Subjective Patient seen in cardiology follow-up. Denies further cardiac complaint. Denies chest discomfort. Had a worsening dry cough last night especially when lying supine. Although his screening test for influenza was negative on presentation to the emergency department on 08/16/2024, repeat testing with nasal flu influenza PCR test was positive this morning. Physical Exam Physical Exam: General: no acute distress and stated age Eyes: conjunctiva are pink and non-injected, sclera clear Neck: normal jugular venous pulse, no hepatojugular reflux Chest: normal shape and normal respiratory effort Lungs: clear to auscultation and percussion Cardiac Exam: -Irregular rhythm, no murmurs Abdomen: abdomen soft, non-tender, no abnormal masses and no hepatosplenomegaly Musculoskeletal: no gait disturbance, no weakness Extremities: Trace ankle edema, no erythema Neuro:awake, conversant, follows commands, no focal motor deficits Psych: appropriate affect and insight. Results & Data Vital Signs (Past 12 Hours) Vital Signs Temp Pulse Pulse Resp BP Pulse Ox O2 Del Method 08/18/24 12:26 36.8 C 53 L 18 123/85 94 Room Air 08/18/24 08:44 36.6 C 60 22 120/78 93 Room Air 08/18/24 08:00 58 L 08/18/24 07:52 Room Air 08/18/24 04:00 36.5 C 58 L 18 106/68 98 Room Air Laboratory Results Cardiac Enzymes 08/18/24 Range/Units 09:11 B-Natriuretic Peptide 105 H (0-100) pg/ml Coagulation 08/18/24 Range/Units 09:11 B-Natriuretic Peptide 105 H (0-100) pg/ml CBC 08/18/24 Range/Units 09:11 WBC 5.67 (4.8-10.8) K/ul RBC 4.91 (4.70-6.10) M/uL Hgb 14.4 (14.0-18.0) g/dl Hct 42.0 (42.0-52.0) % Plt Count 114 L (130-400) K/uL Neut # (Auto) 2.79 (1.40-6.50) K/uL Lymph # (Auto) 1.81 (1.20-3.40) K/uL [place] # (Auto) 0.96 H (0.11-0.59) K/uL Eos # (Auto) 0.08 (0.00-0.50) K/uL Baso # (Auto) 0.02 (0.00-0.20) K/uL Comprehensive Metabolic Panel 08/18/24 Range/Units 09:11 Sodium 135 L (136-145) mmol/L Potassium 3.8 (3.5-5.1) mmol/L Chloride 104 (98-107) mmol/L Carbon Dioxide 23 (21-32) mmol/L BUN 23 (6-23) mg/dl Creatinine 1.19 (0.6-1.4) mg/dl Glucose 174 H (70-99(Fasting)) mg/dl Calcium 8.9 (8.6-10.3) mg/dl Intake and Output 08/18/24 08/18/24 08/18/24 06:59 14:59 22:59 Intake Total 300 / 550 540 / 540 Balance 300 / 550 540 / 540 Intake: Oral 300 / 550 540 / 540 Other: # Unmeasured Voids 1 Weight 109.5 kg Weight Measurement Method Built in [facility] (2) Chest pain Chest pain type: unspecified Qualified Code(s): R07.9 - Chest pain, unspecified
[2024-08-18 15:55] VITALS: BP 100/69
[2024-08-18] MEDS ORDERED: OSELTAMIVIR PHOSPHATE 75 MG CAP PO SCH (21:00)
== END 2024-08-18 16:24 | disposition home or self-care (01) | DRG 310 ==
LOC: ED 15:30 → 4W 15:30
DX: I10 Essential (primary) hypertension; Z68.37 Body mass index [BMI] 37.0-37.9, adult; I08.1 Rheumatic disorders of both mitral and tricuspid valves; Z79.82 Long term (current) use of aspirin; N40.0 Benign prostatic hyperplasia without lower urinary tract symptoms; J10.1 Influenza due to other identified influenza virus with other respiratory manifestations; E66.01 Morbid (severe) obesity due to excess calories; I48.91 Unspecified atrial fibrillation; I25.10 Atherosclerotic heart disease of native coronary artery without angina pectoris; R73.03 Prediabetes; G47.33 Obstructive sleep apnea (adult) (pediatric); Z79.899 Other long term (current) drug therapy; Z99.89 Dependence on other enabling machines and devices; Z79.01 Long term (current) use of anticoagulants